=== PATIENT | male | born 1980 | race Caucasian/White ===

== ENCOUNTER → 2020-01-24 | Outpatient (CLI) | payer BC, OTHER ==
[~2020-01-24] MED LIST: ACET-2267 PO; ACET-789 PO; CLIN150C17 PO; GADOBUTROL 15 MMOL/15 ML (GADAVIST) VIAL IV ONE; HOLD METFORMIN - RECEIVED CONTRAST 20 ML VIAL IV SCH; IOHEXOL 350 MG/ML 100 ML (OMNIPAQUE 350) VIAL IV ONE; NS 100 ML (IVPB) BAG IV ONE
[2020-01-24 07:40] LABS: BASOPHILS % (AUTO) 1 % (0-10); EOSINOPHILS # (AUTO) 0.3 10^3/uL (0.0-0.3); EOSINOPHILS % (AUTO) 6 % (0-10); HEMATOCRIT 43 % (40-54); HEMOGLOBIN 14.7 G/DL (13.3-17.7); LYMPHOCYTES # (AUTO) 1.5 X 10^3 (1.0-4.0); LYMPHOCYTES % (AUTO) 35 % (12-44); MEAN CORPUSCULAR HEMOGLOBIN 29 PG (25-34); MEAN CORPUSCULAR HGB CONC 34 G/DL (32-36); MEAN CORPUSCULAR VOLUME 85 FL (80-99); MEAN PLATELET VOLUME 9.1 FL (7.4-10.4); MONOCYTES # (AUTO) 0.6 X 10^3 (0.0-1.0); MONOCYTES % (AUTO) 14 % (0-12); NEUTROPHILS % (AUTO) 45 % (42-75); PLATELET COUNT 199 10^3/uL (130-400); WHITE BLOOD COUNT 4.5 10^3/uL (4.3-11.0)
[2020-01-24 08:02] LABS: ALANINE AMINOTRANSFERASE 56 U/L (0-55); ALBUMIN 4.1 GM/DL (3.2-4.5); ALKALINE PHOSPHATASE 77 U/L (40-136); AMMONIA 23 UMOL/L (11-32); BILIRUBIN,TOTAL 0.5 MG/DL (0.1-1.0); BUN/CREATININE RATIO 16; CALCIUM 8.6 MG/DL (8.5-10.1); CARBON DIOXIDE 25 MMOL/L (21-32); CHLORIDE 105 MMOL/L (98-107); GFR ESTIMATED > 60; GLUCOSE 108 MG/DL (70-105); LIPASE 4 U/L (8-78); POTASSIUM 3.9 MMOL/L (3.6-5.0); SODIUM 140 MMOL/L (135-145); TOTAL PROTEIN 6.7 GM/DL (6.4-8.2)
--- NOTE | 2020-01-24 08:43 | Diagnostic Imaging Report ---
EXAMINATION: CT Chest with and without intravenous contrast. TECHNIQUE: Multiple contiguous axial images were obtained through the chest before and after the uneventful administration of intravenous contrast. All CT scans use one or more of the following dose optimizing techniques: automated exposure control, MA and/or KvP adjustment based on a patient size and exam type, or iterative reconstruction. HISTORY: Choroidal melanoma COMPARISON: None available. FINDINGS: There is no edema or pneumonia. No pleural effusion. No pneumothorax. There is a 4 mm right lower lobe pulmonary nodule (series 6, image 91). There is a 4 mm lingular nodule (series 6, image 8). Heart size is normal. There are no coronary artery calcifications. No pericardial effusion. Aorta is normal in caliber. There is no axillary or supraclavicular lymphadenopathy. There is no mediastinal lymphadenopathy. Limited views of the upper abdomen show mild hepatic steatosis. There are no suspicious osseus lesions. IMPRESSION: 1. There are two nodules in the lungs most measuring 4 mm. While these are indeterminate, they are unlikely to be related to malignancy. Comparison with any more remote priors would be helpful. Dictated by: Dictated on workstation # [id number]
--- NOTE | 2020-01-24 12:59 | Diagnostic Imaging Report ---
PROCEDURE: MR imaging abdomen with and without contrast. TECHNIQUE: Multiplanar, multisequence MR imaging of the abdomen was performed with and without contrast. INDICATION: Melanoma. COMPARISON: There are no prior MRI examinations available for comparison. The CT chest exam performed on 01/24/2020 failed to show any abnormality of the visualized upper abdomen. FINDINGS: On this exam, there is no abnormal enhancement of the solid organs of the upper abdomen to suggest neoplastic disease. The liver does not appear to be enlarged. The gallbladder, spleen, kidneys, adrenals, pancreas, aorta, and inferior vena cava show no sign of an acute abnormality. The stomach is partially filled with fluid and difficult to assess. There is no mass or free fluid collection evident. The lung bases seem clear. There is no abnormal signal arising from the osseous structures. IMPRESSION: 1. There is no acute abnormality of the abdomen and there is no abnormal enhancement to suggest neoplastic disease related to the patient's diagnosis of melanoma. 2. If clinical concern regarding an underlying abnormality persists, then PET/CT would be recommended for further study. Dictated by: Dictated on workstation # [id number]
== END ==
LOC: CARD 07:23
PROVIDERS: ATTEND Internal Medicine Hematology & Oncology
DX: C69.32 Malignant neoplasm of left choroid (principal); R91.8 Other nonspecific abnormal finding of lung field
CPT/HCPCS: 36415; 71270; 74183; 80053; 82140; 83615; 83690; 84443; 85025; 93306

== ENCOUNTER 2020-02-09 19:13 | Emergency (ER) | payer BC, OTHER ==
[~2020-02-09] VITALS: Ht 193 cm; Wt 142.8 kg
[~2020-02-09 19:13] MED LIST changes: -GADOBUTROL 15 MMOL/15 ML (GADAVIST) VIAL IV ONE; -HOLD METFORMIN - RECEIVED CONTRAST 20 ML VIAL IV SCH; -IOHEXOL 350 MG/ML 100 ML (OMNIPAQUE 350) VIAL IV ONE; -NS 100 ML (IVPB) BAG IV ONE
[2020-02-09] MEDS ORDERED: fentaNYL INJECTION 100 MCG/2 ML AMP IVP STA (19:37)
[2020-02-09 19:43] LABS: BASOPHILS % (AUTO) 1 % (0-10); EOSINOPHILS # (AUTO) 0.3 10^3/uL (0.0-0.3); EOSINOPHILS % (AUTO) 5 % (0-10); HEMATOCRIT 44 % (40-54); HEMOGLOBIN 14.9 G/DL (13.3-17.7); LYMPHOCYTES # (AUTO) 1.8 X 10^3 (1.0-4.0); LYMPHOCYTES % (AUTO) 30 % (12-44); MEAN CORPUSCULAR HEMOGLOBIN 29 PG (25-34); MEAN CORPUSCULAR HGB CONC 34 G/DL (32-36); MEAN CORPUSCULAR VOLUME 86 FL (80-99); MEAN PLATELET VOLUME 9.3 FL (7.4-10.4); MONOCYTES # (AUTO) 0.7 X 10^3 (0.0-1.0); MONOCYTES % (AUTO) 12 % (0-12); NEUTROPHILS # (AUTO) 3.3 X 10^3 (1.8-7.8); NEUTROPHILS % (AUTO) 53 % (42-75); PLATELET COUNT 215 10^3/uL (130-400); WHITE BLOOD COUNT 6.2 10^3/uL (4.3-11.0)
[2020-02-09] MEDS ORDERED: ONDANSETRON 4 MG/2 ML (SDV) Z0FRAN IVP ONE (19:45)
[2020-02-09 19:53] LABS: PROTHROMBIN TIME PATIENT 13.1 SEC (12.2-14.7)
[2020-02-09 19:54] LABS: ALBUMIN 4.5 GM/DL (3.2-4.5); CHLORIDE 109 MMOL/L (98-107); POTASSIUM 3.7 MMOL/L (3.6-5.0); SODIUM 143 MMOL/L (135-145)
[2020-02-09 19:55] LABS: CALCIUM 8.9 MG/DL (8.5-10.1)
[2020-02-09 19:56] LABS: GLUCOSE 102 MG/DL (70-105); TOTAL PROTEIN 7.2 GM/DL (6.4-8.2)
[2020-02-09 19:57] LABS: CARBON DIOXIDE 22 MMOL/L (21-32)
[2020-02-09 19:58] LABS: BILIRUBIN,TOTAL 0.5 MG/DL (0.1-1.0)
[2020-02-09 20:00] LABS: ALKALINE PHOSPHATASE 78 U/L (40-136); GFR ESTIMATED > 60
[2020-02-09 20:01] LABS: BUN/CREATININE RATIO 21
[2020-02-09 20:03] LABS: ALANINE AMINOTRANSFERASE 58 U/L (0-55); MAGNESIUM 2.2 MG/DL (1.6-2.4)
--- NOTE | 2020-02-09 20:14 | Diagnostic Imaging Report ---
PROCEDURE: CT head and maxillofacial without contrast. TECHNIQUE: Multiple contiguous axial images were obtained through the head and facial bones without the use of intravenous contrast. Auto Exposure Controls were utilized during the CT exam to meet ALARA standards for radiation dose reduction. INDICATION: Headache. 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 Left hip pain. COMPARISON: None. FINDINGS: CT head: The ventricles and cortical sulci are age-appropriate. There is no midline shift or mass effect. No acute intracranial hemorrhage is seen. There is no CT evidence of acute territorial ischemia. The calvarium appears intact. CT face: There is a hyperdensity along the medial aspect of the left globe which measures 1.2 x 0.5 x 1.4 cm in size. No extension outside of the globe is seen. No post septal edema or mass is identified. No enlargement of the ocular nerve is seen. There is mild mucosal thickening with mucous retention cysts or polyps seen in the maxillary sinuses, bilaterally. There is mild mucosal thickening in the ethmoid sinuses. No acute fracture is seen in the face. IMPRESSION: 1. Hyperdensity in the medial aspect of the left globe, consistent with the patient's known ocular melanoma. No extension outside of the globe is seen. 2. Mild paranasal sinus disease without fluid level seen. 3. No acute intracranial hemorrhage or mass effect. Dictated by: Dictated on workstation # [id number]
--- NOTE | 2020-02-09 20:18 | ED Headache ---
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, pain is described as being on the left side of his head "its not a headache its a pain inthe side of my head." Nursing Sepsis Screen: No Definite Risk Source: patient History of Present Illness Date Seen by Provider: February 09, 2020 Time Seen by Provider: 19:24 Initial Comments PT ARRIVES VIA POV FROM HOME PT STATES "I GOT SOME PAIN IN MY HEAD--IT'S NOT REALLY A HEADACHE, IT'S JUST A PAIN IN THE SIDE OF MY HEAD" STATES IT BEGAN AROUND 1530 TODAY, WHILE HE WAS AT WORK ( 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 PT STATES HE WAS SUPPOSED TO HAVE STARTED CHEMO, BUT IT HAS BEEN POSTPONED UNTIL MARCH DUE TO COVID-19 PANDEMIC. 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 NO RASH IN AREA NO NAUSEA/VOMITING--HAS BEEN EATING AND DRINKING USUAL NO DIZZINESS NO PARESTHESIAS OR MOTOR DEFICITS NO SYNCOPE NO FEVER/SWEATS/CHILLS NO COUGH/URI/SINUS SYMPTOMS/SORE THROAT AND NO RECENT ILLNESS OF ANY KIND NO KNOWN SICK CONTACTS OR EXPOSURE TO COVID-19. NO RECENT TRAVEL, ETC, EXCEPT TO DR. MATA AT 1940--ONCOLOGIST AT , DR. BALL, HAS CALLED HERE, AT PT'S 'S REQUEST, AND HE CONFIRMS PT'S DIAGNOSIS OF UVEAL MELANOMA, AND STATES THAT HE HAS NOT HAD ANY RECENT SCANS SINCE HE RECEIVED RADIATION IN DECEMBER. THEY WILL ARRANGE FOR OUTPATIENT MRI --PT IS TO CALL THE CLINIC IN THE MORNING TO ARRANGE THIS. Allergies and Home Medications Allergies Coded Allergies: Penicillins (Verified Allergy, Unknown, 03/10/16) aspirin (Verified Allergy, Unknown, 03/10/16) Home Medications Acetaminophen 500 Mg Tablet, 1,000 MG PO Q4H PRN for PAIN, (Reported) TAKES 2 (500MG) TABLETS Acetaminophen with Codeine 1 Each Tablet, 1 EACH PO Q4H PRN for PAIN Prescribed by: FROYLAN LUO on 03/10/161857 Clindamycin HCl 150 Mg Capsule, 450 MG PO TID Prescribed by: FROYLAN LUO on 03/10/161857 Patient Home Medication List Home Medication List Reviewed: Yes Review of Systems Review of Systems Constitutional: no symptoms reported; No chills, No diaphoresis, No dizziness, No fever, No malaise, No weakness Eyes: See HPI Ears, Nose, Mouth, Throat: no symptoms reported Respiratory: no symptoms reported (NO CHANGES IN HEARING) Cardiovascular: no symptoms reported Gastrointestinal: no symptoms reported; No loss of appetite, No nausea, No vomiting Genitourinary: no symptoms reported Musculoskeletal: no symptoms reported; No back pain, No neck pain Skin: no symptoms reported; No pruritus, No rash Psychiatric/Neurological: See HPI; Denies Numbness, Denies Paresthesia, Denies Seizure, Denies Tingling, Denies Tremors, Denies Weakness Past Zdbawwb-Yzrojc-Qfevtt Hx Past Med/Social Hx: Reviewed and Corrections made Patient Social History Alcohol Use: Rarely Uses Recreational Drug Use: No Smoking Status: Former Smoker (1 PPD, QUIT 20 YEARS AGO. ) Type Used: Cigarettes Recent Foreign Travel: No Contact w/Someone Who Travel: No Recent Infectious Disease Expo: No Recent Hopitalizations: No Physical Abuse: No Sexual Abuse: No Mistreated: No Fear: No Seasonal Allergies Seasonal Allergies: No Past Medical History Surgeries: Yes (CARDIAC CATH YEARS AGO-NO INTERVENTION;LEFT EYE LASER SURGERY + AVASTIN INJ) Cardiac, Eye Surgery Respiratory: No Cardiac: Yes (CARDIAC CATH-NO INTERVENTION; QUIT TAKING COREG FOR HTN > 10 YEARS AGO. ) Heart Attack, Hypertension Neurological: No Reproductive Disorders: No Genitourinary: No Gastrointestinal: No Musculoskeletal: No Endocrine: No HEENT: Yes (UVEAL MELANOMA OF LEFT EYE WITH LOSS OF PERIPHERAL VISION ON LEFT) Cancer: Yes (UVEAL MELANOMA OF L EYE-DX 12/2019--S/P RADIATION,AVASTIN INJECTIONS,LASER) Did You Recieve Any Treatments: Yes (LASER SURGERY ON L EYE, AVASTIN INJECTIONS, RADIATION TO L EYE 12/2019) What Type of Treatment Did You: Radiation Psychosocial: No Integumentary: No Blood Disorders: No Family Medical History No Pertinent Family Hx Physical Exam Vital Signs Vital Signs - First Documented 02/09/20 02/09/20 19:24 21:39 Temp 36.4 Pulse 75 Resp 18 B/P (MAP) 138/105 (116) Pulse Ox 98 Capillary Refill : Less Than 3 Seconds Height, Weight, BMI Height: 6'3.00" Weight: 278lbs. 0.0oz. 126.227712ly; 38.00 BMI Method:Stated General Appearance: WD/WN, no apparent distress, other (FLAT AFFECT. ) HEENT: PERRL/EOMI, normal ENT inspection, TMs normal, pharynx normal, other (LEFT EYE WITH SOME LID LAG AND MODERATE PROPTOSIS. LOSS OF PERIPHERAL VISION. CONJUNCTIVA MILDLY INJECTED. NO DRAINAGE. ) Neck: non-tender, full range of motion, supple, normal inspection; No carotid bruit Cardiovascular: normal peripheral pulses, regular rate, rhythm, no edema, no JVD, no murmur Respiratory: normal breath sounds, no respiratory distress, no accessory muscle use Gastrointestinal: normal bowel sounds, non tender, soft Extremities: normal range of motion, non-tender, normal inspection, no pedal edema, no calf tenderness, normal capillary refill Psychiatric: alert, oriented x 3 Crainal Nerves: normal hearing, normal speech, PERRL, other ( ABOVE) Coordination/Gait: normal finger to nose, normal gait Motor/Sensory: no motor deficit, no sensory deficit, no pronator drift Skin: normal color, warm/dry; No rash Lymphatic: no adenopathy Progress/Results/Core Measures Results/Orders Lab Results Laboratory Tests Test 02/09/20 19:31 02/09/20 21:02 Range/Units White Blood Count 6.2 4.3-11.0 10^3/uL Red Blood Count 5.17 4.35-5.85 10^6/uL Hemoglobin 14.9 13.3-17.7 G/DL Hematocrit 44 40-54 % Mean Corpuscular Volume 86 80-99 FL Mean Corpuscular Hemoglobin 29 25-34 PG Mean Corpuscular Hemoglobin Concent 34 32-36 G/DL Red Cell Distribution Width 13.0 10.0-14.5 % Platelet Count 215 130-400 10^3/uL Mean Platelet Volume 9.3 7.4-10.4 FL Neutrophils (%) (Auto) 53 42-75 % Lymphocytes (%) (Auto) 30 12-44 % Monocytes (%) (Auto) 12 0-12 % Eosinophils (%) (Auto) 5 0-10 % Basophils (%) (Auto) 1 0-10 % Neutrophils # (Auto) 3.3 1.8-7.8 X 10^3 Lymphocytes # (Auto) 1.8 1.0-4.0 X 10^3 Monocytes # (Auto) 0.7 0.0-1.0 X 10^3 Eosinophils # (Auto) 0.3 0.0-0.3 10^3/uL Basophils # (Auto) 0.0 0.0-0.1 10^3/uL Erythrocyte Sedimentation Rate 5 0-15 MM/HR Prothrombin Time 13.1 12.2-14.7 SEC INR Comment 1.0 0.8-1.4 Activated Partial Thromboplast Time 32 24-35 SEC Sodium Level 143 135-145 MMOL/L Potassium Level 3.7 3.6-5.0 MMOL/L Chloride Level 109 H 98-107 MMOL/L Carbon Dioxide Level 22 21-32 MMOL/L Anion Gap 12 5-14 MMOL/L Blood Urea Nitrogen 21 H 7-18 MG/DL Creatinine 1.00 0.60-1.30 MG/DL Estimat Glomerular Filtration Rate > 60 BUN/Creatinine Ratio 21 Glucose Level 102 70-105 MG/DL Calcium Level 8.9 8.5-10.1 MG/DL Corrected Calcium 8.5 8.5-10.1 MG/DL Magnesium Level 2.2 1.6-2.4 MG/DL Total Bilirubin 0.5 0.1-1.0 MG/DL Aspartate Amino Transf (AST/SGOT) 36 H 5-34 U/L Alanine Aminotransferase (ALT/SGPT) 58 H 0-55 U/L Alkaline Phosphatase 78 40-136 U/L C-Reactive Protein High Sensitivity 0.28 0.00-0.50 MG/DL Total Protein 7.2 6.4-8.2 GM/DL Albumin 4.5 3.2-4.5 GM/DL Urine Color YELLOW Urine Clarity CLEAR Urine pH 7.0 5-9 Urine Specific [place] 1.020 1.016-1.022 Urine Protein NEGATIVE NEGATIVE Urine Glucose (UA) NEGATIVE NEGATIVE Urine Ketones TRACE H NEGATIVE Urine Nitrite NEGATIVE NEGATIVE Urine Bilirubin NEGATIVE NEGATIVE Urine Urobilinogen 0.2 < = 1.0 MG/DL Urine Leukocyte Esterase NEGATIVE NEGATIVE Urine RBC (Auto) NEGATIVE NEGATIVE Urine RBC 0-2 /HPF Urine WBC 2-5 /HPF Urine Squamous Epithelial Cells NONE /HPF Urine Crystals NONE /LPF Urine Bacteria NEGATIVE /HPF Urine Casts NONE /LPF Urine Mucus NEGATIVE /LPF Urine Culture Indicated NO Urine Opiates Screen NEGATIVE NEGATIVE Urine Oxycodone Screen NEGATIVE NEGATIVE Urine Methadone Screen NEGATIVE NEGATIVE Urine Propoxyphene Screen NEGATIVE NEGATIVE Urine Barbiturates Screen NEGATIVE NEGATIVE Ur Tricyclic Antidepressants Screen NEGATIVE NEGATIVE Urine Phencyclidine Screen NEGATIVE NEGATIVE Urine Amphetamines Screen NEGATIVE NEGATIVE Urine Methamphetamines Screen NEGATIVE NEGATIVE Urine Benzodiazepines Screen NEGATIVE NEGATIVE Urine Cocaine Screen NEGATIVE NEGATIVE Urine Cannabinoids Screen NEGATIVE NEGATIVE My Orders Orders - JUAN CARLOS LAWSON DO Ed Iv/Invasive Line Start (02/09/20 19:25) Ekg Tracing (02/09/20 19:25) Monitor-Rhythm Ecg Trace Only (02/09/20 19:25) Cbc With Automated Diff (02/09/20 19:25) Comprehensive Metabolic Panel (02/09/20 19:25) Drug Screen Stat (Urine) (02/09/20 19:25) Magnesium (02/09/20 19:25) Protime With Inr (02/09/20 19:25) Partial Thromboplastin Time (02/09/20 19:25) Ua Culture If Indicated (02/09/20 19:25) Ct Head/Maxillofacial Wo (02/09/20 19:37) Erythrocyte Sedimentation Rate (02/09/20 19:37) Fentanyl Injection (Sublimaze Injection (02/09/20 19:37) Ondansetron Injection (Zofran Injectio (02/09/20 19:45) Hs C Reactive Protein (02/09/20 19:31) Ct Angio Head/Neck (02/09/20 20:19) Iohexol Injection (Omnipaque 350 Mg/Ml 1 (02/09/20 20:30) Received Contrast (Hold Metformin- Contr (02/09/20 20:30) Ns (Ivpb) (Sodium Chloride 0.9% Ivpb Bag (02/09/20 20:30) Rx-Hydrocodone/Apap 5-325 Mg (Rx-Vicodin (02/09/20 21:30) Medications Given in ED Vital Signs/I&O 02/09/20 02/09/20 19:24 21:39 Temp 36.4 37.0 Pulse 75 73 Resp 18 16 B/P (MAP) 138/105 (116) 131/81 (116) Pulse Ox 98 Blood Pressure Mean: 116 Progress Progress Note : Progress Note PAIN COMPLETELY RELIEVED WITH FENTANYL UNEVENTFUL ER STAY OFFERED RX FOR PAIN MEDICATIONS, BUT PT DECLINED--SENT HOME WITH TAKE HOME PACK OF HYDROCODONE FOR TONIGHT, AND ANY FURTHER PRESCRIPTIONS CAN BE DONE THROUGH HIS ONCOLOGIST AT --PT IS VERY AGREEABLE TO THIS PLAN. Initial ECG Impression Date: February 10, 2020 Initial ECG Impression Time: 19:29 Initial ECG Rate: 66 Initial ECG Rhythm: Normal Sinus Initial ECG Comparisson: No Previous ECG Available Diagnostic Imaging Comments CT HEAD/MAXILLOFACIALS---PER RADIOLOGIST REPORT AT 2018 FINDINGS: CT head: The ventricles and cortical sulci are age-appropriate. There is no midline shift or mass effect. No acute intracranial hemorrhage is seen. There is no CT evidence of acute territorial ischemia. The calvarium appears intact. CT face: There is a hyperdensity along the medial aspect of the left globe which measures 1.2 x 0.5 x 1.4 cm in size. No extension outside of the globe is seen. No post septal edema or mass is identified. No enlargement of the ocular nerve is seen. There is mild mucosal thickening with mucous retention cysts or polyps seen in the maxillary sinuses, bilaterally. There is mild mucosal thickening in the ethmoid sinuses. No acute fracture is seen in the face. IMPRESSION: 1. Hyperdensity in the medial aspect of the left globe, consistent with the patient's known ocular melanoma. No extension outside of the globe is seen. 2. Mild paranasal sinus disease without fluid level seen. 3. No acute intracranial hemorrhage or mass effect. CT ANGIOGRAM HEAD/NECK--PER RADIOLOGIST REPORT AT 2109 FINDINGS: No enhancing lesions are seen in the brain parenchyma. No acute hemorrhage is seen since the prior study. There is no CT evidence of acute territorial ischemia. The previously described mass in the left globe is again seen and demonstrates enhancement. Again, no definite extension outside of the globe is seen. Sinuses appear unchanged. The calvarium is intact. The bilateral common carotid arteries appear normal. The internal carotid arteries are tortuous, bilaterally, with no focal stenosis, occlusion or dissection. The vertebral arteries appear patent. No acute abnormality is seen. The anterior communicating artery is seen. The anterior cervical arteries appear patent. The middle cerebral arteries appear normal. The posterior communicating arteries are not well seen. The posterior cerebral arteries appear normal. The basilar artery appears normal. The superior cerebellar arteries are unremarkable. No significant aneurysm is seen. No acute abnormality is seen in the cervical spine. IMPRESSION: 1. No acute abnormality is seen in the arteries of the head and neck. 2. Redemonstrated enhancing mass in the left globe consistent with the patient's history of ocular melanoma. 3. No enhancing mass is seen in the brain parenchyma. Reviewed: Reviewed by Me Departure Communication (Admissions) Family Conversation 2039--SPOKE WITH PT'S , UPDATE GIVEN--WAITING FOR TEST RESULTS AT THIS TIME. DID DISCUSS THE CONVERSATION I HAD WITH DR. 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 Referrals: SHANELLE GILLIS MD (PCP/Family) Primary Care Physician Patient Instructions: Headache, Adult (DC), Melanoma Skin Cancer (DC) Add. Discharge Instructions: HOME, REST FOLLOW UP WITH YOUR ONCOLOGIST AT FOR OUTPATIENT MRI--CALL IN AM TO SCHEDULE THE TEST FOLLOW UP WITH ONCOLOGY AT INSTRUCTED. All discharge instructions reviewed with patient and/or family. Voiced understanding. JUAN CARLOS LAWSON DO February 09, 2020 20:18
[2020-02-09] MEDS ORDERED: NS 100 ML (IVPB) BAG IV ONE (20:30)
[2020-02-09] MEDS ORDERED: HOLD METFORMIN - RECEIVED CONTRAST 20 ML VIAL IV SCH (20:30)
[2020-02-09] MEDS ORDERED: IOHEXOL 350 MG/ML 100 ML (OMNIPAQUE 350) VIAL IV ONE (20:30)
--- NOTE | 2020-02-09 21:02 | Diagnostic Imaging Report ---
PROCEDURE: CT angiography of the head and CT angiography of the neck with and without contrast. TECHNIQUE: Contiguous noncontrast images were obtained from the skull base through the vertex. After intravenous contrast administration, helical CT angiography of the neck was performed. Source data was reformatted into 3D MIP projections. Delayed post contrast acquisition was also obtained. Auto Exposure Controls were utilized during the CT exam to meet ALARA standards for radiation dose reduction. INDICATION: Headache. History of ocular melanoma. COMPARISON: CT from the same day. FINDINGS: No enhancing lesions are seen in the brain parenchyma. No acute hemorrhage is seen since the prior study. There is no CT evidence of acute territorial ischemia. The previously described mass in the left globe is again seen and demonstrates enhancement. Again, no definite extension outside of the globe is seen. Sinuses appear unchanged. The calvarium is intact. The bilateral common carotid arteries appear normal. The internal carotid arteries are tortuous, bilaterally, with no focal stenosis, occlusion or dissection. The vertebral arteries appear patent. No acute abnormality is seen. The anterior communicating artery is seen. The anterior cervical arteries appear patent. The middle cerebral arteries appear normal. The posterior communicating arteries are not well seen. The posterior cerebral arteries appear normal. The basilar artery appears normal. The superior cerebellar arteries are unremarkable. No significant aneurysm is seen. No acute abnormality is seen in the cervical spine. IMPRESSION: 1. No acute abnormality is seen in the arteries of the head and neck. 2. Redemonstrated enhancing mass in the left globe consistent with the patient's history of ocular melanoma. 3. No enhancing mass is seen in the brain parenchyma. Dictated by: Dictated on workstation # [id number]
[2020-02-09 21:08] LABS: BILIRUBIN,URINE NEGATIVE (NEGATIVE); CLARITY,URINE CLEAR; COLOR,URINE YELLOW; GLUCOSE, URINE (UA) NEGATIVE (NEGATIVE); KETONES,URINE TRACE (NEGATIVE); LEUKOCYTE ESTERASE ,URINE NEGATIVE (NEGATIVE); NITRITE,URINE NEGATIVE (NEGATIVE); PROTEIN,URINE NEGATIVE (NEGATIVE)
[2020-02-09 21:24] LABS: BACTERIA,URINE NEGATIVE /HPF; RBC,URINE 0-2 /HPF
[2020-02-09 21:27] LABS: AMPHETAMINE SCREEN, URINE NEGATIVE (NEGATIVE); BARBITURATE SCREEN URINE NEGATIVE (NEGATIVE); BENZODIAZEPINES SCREEN URINE NEGATIVE (NEGATIVE); CANNABINOID SCREEN, URINE NEGATIVE (NEGATIVE); COCAINE SCREEN URINE NEGATIVE (NEGATIVE); METHADONE STAT NEGATIVE (NEGATIVE); METHAMPHETAMINE SCREEN URINE S NEGATIVE (NEGATIVE); OPIATE SCREEN URINE NEGATIVE (NEGATIVE); OXYCODONE STAT NEGATIVE (NEGATIVE); PROPOXYPHENE STAT NEGATIVE (NEGATIVE); TRICYCLIC ANTIDEPRESSANTS SCRE NEGATIVE (NEGATIVE)
[2020-02-09] MEDS ORDERED: RX-HYDROCODONE/APAP 5/325 MG #4 TAB PK PO PRN (21:30)
[2020-02-09 21:39] VITALS: BP 131/81
== END 2020-02-09 21:38 | disposition home or self-care (01) ==
LOC: EDUNIT# 19:13 → ER 19:15
DX: R51 Headache (principal); C69.42 Malignant neoplasm of left ciliary body; I10 Essential (primary) hypertension; I25.2 Old myocardial infarction; Z92.3 Personal history of irradiation; Z87.891 Personal history of nicotine dependence
CPT/HCPCS: 36415; 70450; 70486; 70496; 70498; 80053; 80306; 81000; 83735; 85025; 85610; 85652; 85730; 86141; 93041

== ENCOUNTER → 2020-05-05 | Outpatient (CLI) | payer BC, OTHER | LOC: LABNPT 09:45 | PROVIDERS: ATTEND Family Medicine | DX: C69.31 Malignant neoplasm of right choroid (principal); Z20.828 Contact with and (suspected) exposure to other viral communicable diseases | CPT/HCPCS: 87635 ==

== ENCOUNTER → 2020-07-03 | Outpatient (CLI) | payer BC, OTHER ==
[~2020-07-03] MED LIST changes: +GADOXETATE 2.5 MMOL/10 ML (EOVIST) IV ONE
[2020-07-03 08:41] LABS: BASOPHILS % (AUTO) 1 % (0-10); EOSINOPHILS # (AUTO) 0.2 10^3/uL (0.0-0.3); EOSINOPHILS % (AUTO) 4 % (0-10); HEMATOCRIT 47 % (40-54); HEMOGLOBIN 16.3 g/dL (13.3-17.7); LYMPHOCYTES # (AUTO) 1.7 10^3/uL (1.0-4.0); LYMPHOCYTES % (AUTO) 43 % (12-44); MEAN CORPUSCULAR HEMOGLOBIN 30 pg (25-34); MEAN CORPUSCULAR HGB CONC 35 g/dL (32-36); MEAN CORPUSCULAR VOLUME 88 fL (80-99); MEAN PLATELET VOLUME 8.6 fL (9.0-12.2); MONOCYTES # (AUTO) 0.4 10^3/uL (0.0-1.0); MONOCYTES % (AUTO) 10 % (0-12); NEUTROPHILS # (AUTO) 1.7 10^3/uL (1.8-7.8); NEUTROPHILS % (AUTO) 42 % (42-75); PLATELET COUNT 158 10^3/uL (130-400)
[2020-07-03 09:08] LABS: ALANINE AMINOTRANSFERASE 80 U/L (0-55); ALBUMIN 4.4 GM/DL (3.2-4.5); ALKALINE PHOSPHATASE 76 U/L (40-136); BILIRUBIN,TOTAL 0.6 MG/DL (0.1-1.0); BUN/CREATININE RATIO 15; CALCIUM 9.1 MG/DL (8.5-10.1); CARBON DIOXIDE 23 MMOL/L (21-32); CHLORIDE 104 MMOL/L (98-107); CREATININE SERUM 0.92 MG/DL (0.60-1.30); GFR ESTIMATED > 60; GLUCOSE 100 MG/DL (70-105); POTASSIUM 3.9 MMOL/L (3.6-5.0); SODIUM 137 MMOL/L (135-145); TOTAL PROTEIN 7.2 GM/DL (6.4-8.2)
--- NOTE | 2020-07-03 11:31 | Diagnostic Imaging Report ---
EXAMINATION: MRI of the abdomen with and without contrast. TECHNIQUE: Multiplanar, multisequence MR images of the abdomen were obtained with and without intravenous contrast. HISTORY: Choroidal melanoma. COMPARISON: 01/24/2020. FINDINGS: Liver is moderately steatotic. No suspicious liver lesions are seen. No surface nodularity. Gallbladder is normal. There is no biliary ductal dilation. Pancreas is normal. Spleen is normal. Adrenal glands are normal. Kidneys are normal without hydronephrosis. Visualized bowel is normal. No lymphadenopathy is seen. Lung bases are clear. No osseous lesions are seen. IMPRESSION: 1. Liver is steatotic but no metastatic disease is seen. Dictated by: Dictated on workstation # [id number]
== END ==
LOC: CARD 09:00
DX: C69.32 Malignant neoplasm of left choroid (principal); K76.0 Fatty (change of) liver, not elsewhere classified
CPT/HCPCS: 36415; 74183; 80053; 83615; 84443; 85025; 93306

== ENCOUNTER 2020-07-18 05:37 | Outpatient (RCR) | payer BC, OTHER ==
[~2020-07-18] VITALS: Ht 193 cm; Wt 145.4 kg
[~2020-07-18 05:37] MED LIST changes: +FAMO-119 PO; -GADOXETATE 2.5 MMOL/10 ML (EOVIST) IV ONE; +LISI-552 PO; +ONDN4T PO; +SUNI25CA PO
[2020-07-19] MEDS ORDERED: PANT40TA2 PO (10:40)
[2020-07-19] MEDS ORDERED: SUCR1TAB36 PO (12:53)
== END 2020-07-18 10:02 | disposition home or self-care (01) ==
LOC: PREOP 05:37
PROVIDERS: ATTEND Surgery
DX: Z01.818 Encounter for other preprocedural examination (principal); Z01.812 Encounter for preprocedural laboratory examination; K92.0 Hematemesis; Z20.828 Contact with and (suspected) exposure to other viral communicable diseases
CPT/HCPCS: 87635

== ENCOUNTER 2020-07-19 10:29 | Day surgery (SDC) | payer BC, OTHER ==
[~2020-07-19] VITALS: Ht 193 cm; Wt 39.0 kg
[2020-07-19] VITALS (16 sets, daily range): BP systolic 126–152; BP diastolic 77–92
--- NOTE | 2020-07-19 10:39 | Progress Note-Pre Operative ---
Pre-Operative Progress Note H&P Reviewed The H&P was reviewed, patient examined and no changes noted. Date Seen by Provider: Jul 19, 2020 Time Seen by Provider: 10: Date H&P Reviewed: Jul 19, 2020 Time H&P Reviewed: : Pre-Operative Diagnosis: hematamesis, hx ocular melanoma MENDY DE LEON MD Jul 19, 2020 10:39
--- NOTE | 2020-07-19 10:39 | Conscious Sedation/ASA ---
Conscious Sedation Pre-Proced Time 10:30 ASA Score 2 For ASA 3 and 4: Consider anesthesia and medical clearance. Also, for patients with a history of failed moderate sedation consider anesthesia. Airway Lungs Heart ASA score ASA 1: a normal healthy patient ASA 2: a patient with a mild systemic disease (mid diabetes, controlled hypertension, obesity ASA 3: a patient with a severe systemic disease that limits activity (angina, COPD, prior Myocardial infarction) ASA 4: a patient with an incapacitating disease that is a constant threat to life (CHF, renal failure) ASA 5: a moribund patient not expected to survive 24 hrs. (ruptured aneurysm) ASA 6: a declared brain- patient whose organs are being harvested. For emergent operations, add the letter E after the classification Mallampati Classification Grade 2 Sedation Plan Analgesia, Amnesia, Plan communicated to team members, Discussed options with patient/fam, Discussed risks with patient/fam The patient is an appropriate candidate to undergo the planned procedure, sedation, and anesthesia. The patient immediately re-assessed prior to indication. MENDY DE LEON MD Jul 19, 2020 10:39
[2020-07-19] MEDS ORDERED: PANT40TA2 PO (10:40)
[2020-07-19] MEDS ORDERED: HYDROcodone/APAP 5 MG/325 MG (LORTAB) TAB PO PRN (10:45)
[2020-07-19] MEDS ORDERED: ACETAMINOPHEN 325 MG TABLET PO PRN (10:45)
[2020-07-19] MEDS ORDERED: ONDANSETRON 4 MG/2 ML (SDV) Z0FRAN IVP PRN (10:45)
[2020-07-19] MEDS ORDERED: morphine INJ 10 MG/ML 1ML (SYR OR VIAL) IVP PRN ×2 (10:45)
[2020-07-19] MEDS ORDERED: NS IV 500 ML 500 ML IV PRN (10:46)
[2020-07-19] MEDS ORDERED: NS IV 500 ML 500 ML ONE (10:50)
[2020-07-19] MEDS ORDERED: fentaNYL INJECTION 100 MCG/2 ML AMP IVP ONE (11:00)
[2020-07-19] MEDS ORDERED: MIDAZOLAM 5 MG/5 ML (VERSED) VIAL IV ONE (11:00)
[2020-07-19] MEDS ORDERED: HURRICAINE EXT TUBE (BENZOCAINE) XX PRN (11:00)
[2020-07-19] MEDS ORDERED: LIDOCAINE JELLY 2% 6 ML SYRINGE MM PRN (11:00)
[2020-07-19] MEDS ORDERED: LIDOCAINE JELLY 2% 6 ML SYRINGE ONE (11:43)
[2020-07-19] MEDS ORDERED: MIDAZOLAM 5 MG/5 ML (VERSED) VIAL ONE ×2 (11:44→12:00)
[2020-07-19] MEDS ORDERED: fentaNYL INJECTION 100 MCG/2 ML AMP ONE ×2 (11:44→12:00)
[2020-07-19] MEDS ORDERED: HURRICAINE EXT TUBE (BENZOCAINE) ONE (11:46)
--- NOTE | 2020-07-19 12:46 | Progress Note-Post Operative ---
Post-Operative Progess Note Surgeon (s)/Manager Medicare (s) Surgeon MENDY DE LEON MD Manager Medicare: none Pre-Operative Diagnosis hematamesis, hx ocular melanoma Post-Operative Diagnosis distal esophagitis, reflux esophagitis(stage 3), moderate HH(3cm), mild-moderate gastritis. Procedure & Operative Findings Date of Procedure 07/19/20 Procedure Performed/Findings EGD with bx. Anesthesia Type cs Estimated Blood Loss Estimated blood loss (mL): minimal Specimens/Packing Specimens Removed ge jxn, antrum MENDY DE LEON MD Jul 19, 2020 12:46
[2020-07-19] MEDS ORDERED: SUCR1TAB36 PO (12:53)
--- NOTE | 2020-07-19 20:25 | OPERATIVE REPORT ---
DATE OF SERVICE: 07/19/2020 ATTENDING PRIMARY CARE PHYSICIAN: Dr. Kadeem Wright. PREOPERATIVE DIAGNOSES: Nausea, vomiting, regurgitation, hematemesis with history of left ocular melanoma. POSTOPERATIVE DIAGNOSES: Distal esophagitis, reflux esophagitis stage III, moderate size hiatal hernia 3 cm in size, mild to moderate gastritis. No distal obstructions. PROCEDURE: EGD with biopsy. SURGEON: Mendy De Leon MD. ANESTHESIA: Conscious sedation. ESTIMATED BLOOD LOSS: Minimal. FINDINGS: Distal esophagitis, reflux esophagitis stage III, moderate size hiatal hernia 3 cm in size, mild to moderate gastritis. No distal obstructions. DISPOSITION: The patient tolerated the procedure well. INDICATIONS: The patient is a 39-year-old male referred over to us for an EGD. He has had issues with nausea, vomiting and regurgitation including several episodes of hematemesis. He reports that he has had issues with reflux for some amount of time and at times would also have some dysphagia. During 09/2019, he was diagnosed with left ocular melanoma and was treated with oral antibiotic, Sutent as well as radiation plaque therapy in 10/2019. He is currently on Pepcid 20 mg daily. DESCRIPTION OF PROCEDURE: The patient was brought to the endoscopy suite, laid in left lateral decubitus position. After adequate IV pain and sedative medications and conscious sedation anesthesia, the mouthpiece was applied. The endoscope was then placed in the mouth, visualizing the pharynx and hypopharyngeal region. Vocal cords, epiglottis and vallecula identified and appeared to be normal. The endoscope was then gently intubated. Esophageal opening and esophagus insufflated. The endoscope was then advanced through the first, second and third portion of esophagus at the distal third of the esophagus, a significant esophagitis was identified. 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 Biopsies were taken with forceps with visualization of good hemostasis. The endoscope was then advanced into the stomach and endoscope retroflexed, visualizing a moderate sized hiatal hernia approximately 3 cm in size. There was a mild to moderate gastritis. No formal ulcerations, polyps, or any neoplasms identified. A biopsy was taken of the antrum to rule out H. pylori with visualization of good hemostasis. The endoscope was then advanced through the pylorus and the first and second portion of the duodenum, which appeared normal with no distal obstructions. Endoscope was then slowly withdrawn while taking a second look and suctioning of residual air with no additional findings. The patient tolerated the procedure well. We will await the biopsy results; however, start him on the necessary lifestyle and diet accommodation including avoidance of caffeinated beverages, spicy, greasy and acidic foods as well as take in small and more frequent meals, avoiding to eating at night as well as head elevation while lying supine. We will also start him on Protonix 40 mg daily as well as Carafate 1 gram q.i.d. for the next 2 weeks, then on a p.r.n. basis. If he continues to be symptomatic with regurgitation, dysphagia, reflux despite maximal medical therapy, he may be a candidate for hiatal hernia repair in which we would proceed with further testing including an esophageal manometry study and if there is no contraindication, then proceed with a hiatal hernia repair as well as an antireflux procedure. Job ID: [id number] DocumentID: [id number] Dictated Date: 07/19/2020 12:40:29 Integration Engineer Date: 07/19/2020 20:24:36 Dictated By: MENDY DE LEON MD
== END 2020-07-19 12:22 | disposition home or self-care (01) ==
LOC: ENDO 10:29
PROVIDERS: ATTEND Surgery
DX: K21.00 Gastro-esophageal reflux disease with esophagitis, without bleeding (principal); K44.9 Diaphragmatic hernia without obstruction or gangrene; K29.70 Gastritis, unspecified, without bleeding; K22.70 Barrett's esophagus without dysplasia; I10 Essential (primary) hypertension; I25.2 Old myocardial infarction; Z79.899 Other long term (current) drug therapy; Z92.3 Personal history of irradiation; Z87.891 Personal history of nicotine dependence; Z88.0 Allergy status to penicillin; Z88.6 Allergy status to analgesic agent; Z87.19 Personal history of other diseases of the digestive system; Z85.89 Personal history of malignant neoplasm of other organs and systems
CPT/HCPCS: 88305

== ENCOUNTER 2020-09-01 22:44 | Emergency (ER) | payer BC, OTHER ==
[~2020-09-01] VITALS: Ht 193 cm; Wt 140.6 kg
[~2020-09-01 22:44] MED LIST changes: +PANT40TA2 PO; +SUCR1TAB36 PO
--- NOTE | 2020-09-01 23:28 | ED EENT ---
History of Present Illness General Chief Complaint: Eye Problems Stated Complaint: L EYE BLEED Nursing Triage Note: Pt ambulates to room #5 with c/o "bleeding" to L eye. Pt reports on this day at approx 1930, he felt a sharp pain to L eye et noticed bleeding to L medial sclera with gradual progression of bleeding towards L lateral iris. Pt reports no new loss of vision, but reports blurred vision. Pt reports he is currently taking chemotherapy tx for occular melanoma to L eye. Pt reports he recieved injection to L eye on 08/28/20. A&OX4. Source: patient Exam Limitations: no limitations (MISAEL BECERRA,GLENIS STUDENT) History of Present Illness Date Seen by Provider: Sep 01, 2020 Time Seen by Provider: 23:20 Initial Comments Patient is a 39yo male c/o left eye bleeding and pain that began around 19:30 tonight. He has a hx of ocular melanoma diagnosed on September 2019, and receives chemotherapy injections. He states he has experienced mild bleeding with injections in the past, but his last injection was on 08/21, and he also denies ever having pain with injections. He admits having some blurry vision due to receiving radiation, but denies acute changes in vision at this time. He follows with Dr. French's office, and Dr. Whitney at [facility] in [place]. Denies recent trauma to the eye, and he does not take any anticoagulants. Timing/Duration: this evening Location: eye (L) (MISAEL BECERRA,MED STUDENT) Allergies and Home Medications Allergies Coded Allergies: Penicillins (Verified Allergy, Unknown, 07/17/20) aspirin (Verified Allergy, Unknown, 07/17/20) Home Medications Lisinopril 20 Mg Tablet, 20 MG PO DAILY, (Reported) Ondansetron HCl 4 Mg Tab, 4 MG PO PRN PRN for NAUSEA/VOMITING-1ST LINE, (Reported) Pantoprazole Sodium 40 Mg Tablet., 40 MG PO DAILY Prescribed by: MENDY DE LEON on 07/19/20 1040 Sucralfate 1 Gm Tablet, 1 GM PO QID Prescribed by: DOREEN WAYNE on 07/19/20 1253 Sunitinib Malate 25 Mg Capsule, 25 MG PO DAILY, (Reported) Patient Home Medication List Home Medication List Reviewed: Yes (RIANNA PRICE MD) Review of Systems Review of Systems Constitutional: No chills, No dizziness, No fever Eyes: See HPI Ears: No Symptoms Reported Nose: denies congestion, denies epistaxis, denies pain Mouth: denies pain, denies swelling, denies bloody discharge Throat: denies pain, denies swelling Respiratory: No cough, No short of breath, No wheezing Cardiovascular: No chest pain, No palpitations, No syncope Gastrointestinal: No abdominal pain, No nausea, No vomiting Musculoskeletal: no symptoms reported Skin: no symptoms reported Neurological: Denies Headache, Denies Numbness, Denies Tingling (MISAEL BECERRA MED STUDENT) Past Ajmklem-Osudta-Lzsjdx Hx Patient Social History Alcohol Use: Denies Use Recreational Drug Use: No Smoking Status: Former Smoker Type Used: Cigarettes Former Smoker, Quit: Jul 17, 2005 2nd Hand Smoke Exposure: Yes Recent Foreign Travel: No Contact w/Someone Who Travel: No Recent Infectious Disease Expo: No Recent Hopitalizations: No (MISAEL BECERRA MED STUDENT) Seasonal Allergies Seasonal Allergies: No (MISAEL BECERRA MED STUDENT) Past Medical History Surgeries: Yes (CARDIAC CATH-NO INTERVENTION;LEFT EYE LASER SURGERY + AVASTIN INJ) Cardiac, Eye Surgery Respiratory: No Cardiac: Yes (CARDIAC CATH-NO INTERVENTION; QUIT TAKING COREG FOR HTN > 10 YEARS AGO. 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) Cancer: Yes (UVEAL MELANOMA OF L EYE-DX 12/2019--S/P RADIATION,AVASTIN INJECTIONS,LASER) Did You Recieve Any Treatments: Yes What Type of Treatment Did You: Chemotherapy, Radiation Psychosocial: No Integumentary: No Blood Disorders: No Adverse Reaction/Blood Tranf: No (N/A) (MISAEL BECERRA MED STUDENT) Family Medical History No Pertinent Family Hx (MISAEL BECERRA MED STUDENT) Physical Exam Vital Signs Vital Signs - First Documented 09/01/20 23:00 Temp 35.9 Pulse 75 Resp 18 B/P (MAP) 138/97 (111) Pulse Ox 97 O2 Delivery Room Air (RIANNA PRICE MD) Height, Weight, BMI Height: 6'3.00" Weight: 278lbs. 0.0oz. 126.134010ep; 37.00 BMI Method:Stated General Appearance: WD/WN, no apparent distress Eyes: bilateral eye PERRL, bilateral eye EOMI Neck: full range of motion, normal inspection Cardiovascular: regular rate, rhythm, no edema, no murmur Respiratory: lungs clear, no respiratory distress, no accessory muscle use Gastrointestinal: normal bowel sounds, non tender, soft Neurologic/Psychiatric: alert, normal mood/affect, oriented x 3 Skin: normal color, warm/dry (MISAEL BECERRA,MED STUDENT) Progress/Results/Core Measures Results/Orders My Orders Orders - RIANNA PRICE MD Tetracaine 0.5% Ophth Mica Sdv (Tetracai (09/02/20 00:00) Fluorescein Strips ([id number]) (09/02/20 00:00) Balanced Salt Irrigation Soln (Bss Irrig (09/02/20 00:00) Balanced Salt Irrigation Soln (Bss Irrig (09/02/20 00:30) (RIANNA PIRCE MD) Medications Given in ED (RIANNA PRICE MD) Vital Signs/I&O (RIANNA PRICE MD) Blood Pressure Mean: 111 Departure Impression Primary Impression: Subconjunctival hemorrhage Qualified Codes: H11.32 - Conjunctival hemorrhage, left eye Additional Impressions: Foreign body, eye Qualified Codes: T15.92XA - Foreign body on external eye, part unspecified, left eye, initial encounter Ocular melanoma Qualified Codes: C69.91 - Malignant neoplasm of unspecified site of right eye Left eye pain Disposition: 01 HOME, SELF-CARE Condition: Improved Departure-Patient Inst. Decision time for Depature: 00:15 (RIANNA PRICE MD) Referrals: SHANELLE GILLIS MD (PCP/Family) Primary Care Physician Patient Instructions: Foreign Body in Eye Add. Discharge Instructions: There was a fine hair in your eye. It is unclear if this was causing your pain. Further evaluation by an data programmer is recommended. Please meet Dr. Reyez at [facility] at 8: 00 this morning. You may use artificial tears liberally to lubricate your eye. You may use 2 or 3 drops of the tetracaine/saline solution each hour if needed for pain. You may take Tylenol for pain. If symptoms become more severe, please call Dr. Price in the ER at [phone]. All discharge instructions reviewed with patient and/or family. Voiced understanding. Medical Student Attestation and Attending Note: I have personally interviewed and examined this patient along with Misael Becerra MS4. I have reviewed student documentation including history, physical, and assessments. I agree with the documentation except where otherwise noted. Patient is established with [facility]. I consulted Dr. Reyez from the clinic regarding the situation. Patient seems to have scleral subconjunctival hemorrhage on the superior and lateral periphery of the iris. Tetracaine drops were applied. This reduce but did not relieve his pain. The eye was further examined with fluorescein. There appeared to be a very fine hair crossing the cornea. This was lifted with a cotton swab. No abrasions or other foreign bodies were identified. Eye was irrigated with balanced saline. Arrangements were made for patient to follow-up with Dr. Reyez in the clinic at 8:00. A bottle of balanced saline with 0.5 mL of tetracaine was dispensed for patient to use in the meantime. Exam: General: Alert, oriented, no acute distress, well developed HEENT: Normocephalic and atraumatic. Some conjunctival hemorrhage superior and lateral to the iris. Fluorescein exam reveals a fine hair across the cornea and sclera. Heart: Regular rate and rhythm without murmur Lungs: Clear bilaterally with normal effort Neuropsych: Alert, oriented, no focal deficits Skin: Warm and dry without rashes (RIANNA PRICE MD) Copy Copies To 1: CHRISTIANO FRENCH OD, JOSEPH,MED STUDENT Sep 01, 2020 23:28 RIANNA PRICE MD Sep 02, 2020 00:18
[2020-09-02] MEDS ORDERED: BSS 15 ML IR ONE
[2020-09-02] MEDS ORDERED: TETRACAINE 0.5% OPHTH SOLN 4 ML BTL (SINGLE DOSE ONLY) OU ONE
[2020-09-02] MEDS ORDERED: FLUORESCEIN (FLUOR-I-STRIPS) 1 MG STRP OU ONE
[2020-09-02 00:30] VITALS: BP 128/94
[2020-09-02] MEDS ORDERED: BSS 15 ML IR PRN (00:30)
== END 2020-09-02 00:30 | disposition home or self-care (01) ==
LOC: EDUNIT# 22:44 → ER 22:46
DX: T15.92XA Foreign body on external eye, part unspecified, left eye, initial encounter (principal); C69.92 Malignant neoplasm of unspecified site of left eye; H11.32 Conjunctival hemorrhage, left eye; I10 Essential (primary) hypertension; K21.9 Gastro-esophageal reflux disease without esophagitis; Z87.891 Personal history of nicotine dependence; Z77.22 Contact with and (suspected) exposure to environmental tobacco smoke (acute) (chronic); Z88.0 Allergy status to penicillin; Z88.6 Allergy status to analgesic agent
CPT/HCPCS: 99283

== ENCOUNTER → 2021-01-25 | Outpatient (CLI) | payer BC, OTHER ==
[~2021-01-25] MED LIST changes: -CLIN150C17 PO; +CLIN150C18 PO; -LISI-552 PO; +LISI20TA26 PO
--- NOTE | 2021-01-25 15:24 | Diagnostic Imaging Report ---
INDICATION: Left upper chest pain - duration 1 week. COMPARISON: None. FINDINGS: Frontal and lateral views of the chest demonstrate normal heart size and pulmonary vascularity. The lungs are clear. There are no signs of infiltrate, pleural effusions or pneumothoraces. The visualized osseous structures show no acute abnormalities. IMPRESSION: 1. No acute process. No signs of infiltrates, effusions or pneumothoraces. Dictated by: Dictated on workstation # [id number]
== END ==
LOC: RAD 14:09
PROVIDERS: ATTEND Family Medicine
DX: R07.89 Other chest pain (principal)
CPT/HCPCS: 71046

== ENCOUNTER → 2021-01-29 | Outpatient (CLI) | payer BC, OTHER | LOC: CARD 10:38 | PROVIDERS: ATTEND Family Medicine | DX: R07.9 Chest pain, unspecified (principal) ==

== ENCOUNTER → 2021-01-29 | Outpatient (CLI) | payer BC, OTHER | LOC: CARD 10:31 | PROVIDERS: ATTEND Family Medicine | DX: R07.9 Chest pain, unspecified (principal) | CPT/HCPCS: 93005 ==

== ENCOUNTER 2021-04-15 09:11 | Emergency (ER) | payer BC ==
[~2021-04-15] VITALS: Ht 193 cm; Wt 142.8 kg
--- NOTE | 2021-04-15 09:56 | ED Abdominal Pain ---
General Chief Complaint: Abdominal/GI Problems Stated Complaint: CONSTIPATION Nursing Triage Note: pt presents to ed via pov from home accompanied by with complaints of constipation x 1 week. pt reports he has tried multiple over the counter medications with no relief. Source of Information: Patient Exam Limitations: No Limitations History of Present Illness Date Seen by Provider: Apr 15, 2021 Time Seen by Provider: 09:31 Initial Comments Here with report of constipation over the last week. He has tried [id number] treatments including Senokot, Dulcolax and did a medium-sized bottle of MiraLAX (the whole thing) yesterday. Did have moderate amount of watery/loose stool yesterday but still feels constipated. Complains of pain to the left flank left lower quadrant. Denies fever chills. 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 Does have cancer history in his family. Denies blood in stool or urine. Denies dysuria. Otherwise eating and drinking okay. Timing/Duration: 1 Week Severity/Quality: Mild, Aching Location: LLQ, Flank Radiation: No Radiation Modifying Factors: Improves With Defecating, Improves With Resting Associated Symptoms: No Chest Pain, No Fever/Chills, No Headache, No Nausea/Vomiting, No Swelling/Mass in Abdomen, No Weakness Allergies and Home Medications Allergies Coded Allergies: Penicillins (Verified Allergy, Unknown, 07/17/20) aspirin (Verified Allergy, Unknown, 07/17/20) Home Medications Lisinopril 20 Mg Tablet, 20 MG PO DAILY, (Reported) Ondansetron HCl 4 Mg Tab, 4 MG PO PRN PRN for NAUSEA/VOMITING-1ST LINE, (Reported) Pantoprazole Sodium 40 Mg Tablet.dr, 40 MG PO DAILY Prescribed by: MENDY DE LEON on 07/19/20 1040 Sucralfate 1 Gm Tablet, 1 GM PO QID Prescribed by: DOREEN WAYNE on 07/19/20 1253 Sunitinib Malate 25 Mg Capsule, 25 MG PO DAILY, (Reported) Patient Home Medication List Home Medication List Reviewed: Yes Review of Systems Review of Systems Constitutional: No chills, No fever EENTM: No Symptoms Reported Respiratory: Denies Cough, Denies Shortness of Air Cardiovascular: No Symptoms Reported Gastrointestinal: Abdominal Pain, Constipated; Denies Nausea, Denies Vomiting Genitourinary: Denies Burning, Denies Pain Musculoskeletal: no symptoms reported Skin: no symptoms reported Psychiatric/Neurological: No Symptoms Reported All Other Systems Reviewed Negative Unless Noted: Yes Past Divirwa-Xrlafu-Dfbhwt Hx Patient Social History Tobacco Use?: No Use of E-Cig and/or Vaping dev: No Substance use?: No Alcohol Use?: No Immunizations Up To Date First/Initial COVID19 Vaccinat: 11/29/20 COVID19 Vaccine 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 0.0oz. [id number]; 38.00 BMI Method:Stated General Appearance: WD/WN, no apparent distress HEENT: PERRL/EOMI, pharynx normal Neck: full range of motion, supple Respiratory: lungs clear, normal breath sounds Cardiovascular: regular rate, rhythm, no murmur Gastrointestinal: soft; No guarding, No rebound; tenderness (Left lower quadrant lateral aspect) Rectal: normal exam, normal rectal tone, other (No obvious stool ball, no mass and no noted hemorrhoids.) Extremities: non-tender, normal inspection Back: normal inspection, no CVA tenderness, no vertebral tenderness Neurologic/Psychiatric: alert, oriented x 3 Skin: normal color, warm/dry Progress/Results/Core Measures Results/Orders Lab Results Laboratory Tests Test 04/15/21 09:53 04/15/21 10:38 Range/Units Urine Color YELLOW Urine Clarity CLEAR Urine pH 6.0 5-9 Urine Specific [place] 1.010 L 1.016-1.022 Urine Protein NEGATIVE NEGATIVE Urine Glucose (UA) NEGATIVE NEGATIVE Urine Ketones NEGATIVE NEGATIVE Urine Nitrite NEGATIVE NEGATIVE Urine Bilirubin NEGATIVE NEGATIVE Urine Urobilinogen 0.2 < = 1.0 MG/DL Urine Leukocyte Esterase NEGATIVE NEGATIVE Urine RBC (Auto) NEGATIVE NEGATIVE Urine RBC RARE /HPF Urine WBC NONE /HPF Urine Crystals NONE /LPF Urine Bacteria NEGATIVE /HPF Urine Casts NONE /LPF Urine Mucus NEGATIVE /LPF Urine Culture Indicated NO White Blood Count 5.0 4.3-11.0 10^3/uL Red Blood Count 4.92 4.30-5.52 10^6/uL Hemoglobin 14.9 13.3-17.7 g/dL Hematocrit 43 40-54 % Mean Corpuscular Volume 88 80-99 fL Mean Corpuscular Hemoglobin 30 25-34 pg Mean Corpuscular Hemoglobin Concent 35 32-36 g/dL Red Cell Distribution Width 13.1 10.0-14.5 % Platelet Count 174 130-400 10^3/uL Mean Platelet Volume 8.7 L 9.0-12.2 fL Immature Granulocyte % (Auto) 0 % Neutrophils (%) (Auto) 53 42-75 % Lymphocytes (%) (Auto) 31 12-44 % Monocytes (%) (Auto) 12 0-12 % Eosinophils (%) (Auto) 3 0-10 % Basophils (%) (Auto) 0 0-10 % Neutrophils # (Auto) 2.7 1.8-7.8 10^3/uL Lymphocytes # (Auto) 1.6 1.0-4.0 10^3/uL Monocytes # (Auto) 0.6 0.0-1.0 10^3/uL Eosinophils # (Auto) 0.2 0.0-0.3 10^3/uL Basophils # (Auto) 0.0 0.0-0.1 10^3/uL Immature Granulocyte # (Auto) 0.0 0.0-0.1 10^3/uL Sodium Level 136 135-145 MMOL/L Potassium Level 3.7 3.6-5.0 MMOL/L Chloride Level 105 98-107 MMOL/L Carbon Dioxide Level 21 21-32 MMOL/L Anion Gap 10 5-14 MMOL/L Blood Urea Nitrogen 11 7-18 MG/DL Creatinine 0.79 0.60-1.30 MG/DL Estimat Glomerular Filtration Rate > 60 BUN/Creatinine Ratio 14 Glucose Level 164 H 70-105 MG/DL Calcium Level 9.3 8.5-10.1 MG/DL Corrected Calcium 9.1 8.5-10.1 MG/DL Total Bilirubin 0.6 0.1-1.0 MG/DL Aspartate Amino Transf (AST/SGOT) 28 5-34 U/L Alanine Aminotransferase (ALT/SGPT) 48 0-55 U/L Alkaline Phosphatase 85 40-136 U/L C-Reactive Protein High Sensitivity 0.46 0.00-0.50 MG/DL Total Protein 7.2 6.4-8.2 GM/DL Albumin 4.2 3.2-4.5 GM/DL My Orders Orders - CHARLEY STEPHENS MD Ua Culture If Indicated (04/15/21 09:50) Acute Abd Series (04/15/21 09:50) Ct Abdomen/Pelvis W (04/15/21 10:30) Cbc With Automated Diff (04/15/21 10:30) Comprehensive Metabolic Panel (04/15/21 10:30) Hs C Reactive Protein (04/15/21 10:30) Ns Iv 1000 Ml (Sodium Chloride 0.9%) (04/15/21 10:30) Ed Iv/Invasive Line Start (04/15/21 10:30) Ns Iv 1000 Ml (Sodium Chloride 0.9%) (04/15/21 10:30) Iohexol Injection (Omnipaque 350 Mg/Ml 1 (04/15/21 10:45) Received Contrast (Hold Metformin- Contr (04/15/21 10:45) Ns (Ivpb) (Sodium Chloride 0.9% Ivpb Bag (04/15/21 10:45) Medications Given in ED Current Medications Medications Dose Ordered Sig/Sammi Route Start Time Stop Time Status Last Admin Dose Admin Iohexol 100 ml ONCE ONCE IV 04/15/21 10:45 04/15/21 10:46 DC 04/15/21 10:47 100 ML Sodium Chloride 100 ml ONCE ONCE IV 04/15/21 10:45 04/15/21 10:46 DC 04/15/21 10:48 80 ML Vital Signs/I&O 04/15/21 09:17 Temp 36.2 Pulse 80 Resp 18 B/P (MAP) 179/112 (134) Pulse Ox 96 Blood Pressure Mean: 134 Progress Progress Note : Progress Note Seen and evaluated. Rectal exam performed which did not reveal any stool ball or mass. We will get acute abdominal series and check urine. I did discuss with him the likelihood of CT abdomen and pelvis with concerns for diverticulitis as well but we want to see the other tests before we move forward with that. Patient and family agree. 1030: We will move ahead with CT abdomen pelvis. X-ray is not showing significant constipation. There is a right lung nodule that radiology is recommending further evaluation. He did have CT of the chest as well as MRI earlier this week at [facility] so we will not pursue that at this point. We will check basic labs and give normal saline 1 L bolus. Monitor patient. 1255: CT is listed below. There was mention of possible colitis versus collapsed bowel. Given that his CRP is negative and his white count is normal I believe this is more functional and not an indication of inflammatory situation currently. I did discuss this with the patient. We will initiate clear liquid/light diet as outpatient and he will follow up with his doctor as needed. I will send a copy of the chart to his primary care doctor. Discharged home with return precautions. Patient verbalized understanding of instructions and agreement with plan. Diagnostic Imaging Diagonstic Imaging: Xray Plain Films/CT/US/NM/MRI: chest, abdomen Comments [facility], [place] NAME: ASHU CUNHA [facility] REC#: [id number] PT STATUS: REG ER : 1980 PHYSICIAN: CHARLEY STEPHENS MD ADMIT DATE: 04/15/21/ER Signed Date of Exam:04/15/21 ACUTE ABD SERIES EXAM: ACUTE ABD SERIES INDICATION: Abdominal pain. COMPARISON: MRI abdomen without and with IV contrast 07/03/2020. FINDINGS: Normal heart size and central pulmonary vascularity. Subtle nodular density in the right midlung. No pleural effusion or pneumothorax. No free intraperitoneal air. Nonspecific bowel gas pattern. No suspicious radiopaque densities. No large stool burden. IMPRESSION: 1. Possible nodular opacity in the right midlung is indeterminate. This could be better evaluated with chest CT. 2. No acute radiographic findings in the abdomen. Dictated by: Dictated on workstation # [id number] Dict: 04/15/21 1029 Trans: 04/15/21 1044 [facility] [id number] Interpreted by: KIM NOBLE MD Electronically signed by: KIM NOBLE MD 04/15/21 1044 Diagonstic Imaging: CT Plain Films/CT/US/NM/MRI: abdomen, pelvis Comments [facility] [place] NAME: ASHU CUNHA [facility] REC#: [id number] PT STATUS: REG ER : 1980 PHYSICIAN: CHARLEY STEPHENS MD ADMIT DATE: 04/15/21/ER Draft Date of Exam:04/15/21 CT ABDOMEN/PELVIS W PROCEDURE: CT abdomen and pelvis with contrast. TECHNIQUE: Multiple contiguous axial images were obtained through the abdomen and pelvis after administration of intravenous contrast. Auto Exposure Controls were utilized during the CT exam to meet ALARA standards for radiation dose reduction. All CT scans use one or more of the following dose optimizing techniques: automated exposure control, MA and/or KvP adjustment based on patient size and exam type or iterative reconstruction. INDICATION: 40-year-old male, history of ocular melanoma, just finished chemotherapy. Currently with abdominal pain. CORRELATION STUDY: None. FINDINGS: LOWER THORAX: Clear. Small hiatal hernia. LIVER: Diffuse hepatic steatosis without definitive focal lesion. GALLBLADDER: Present and unremarkable. No bile duct dilatation. SPLEEN: Unremarkable. PANCREAS: Unremarkable. ADRENAL GLANDS: Unremarkable. KIDNEYS: Normal configuration. No calcification or obstruction. ABDOMINAL AORTA: Unremarkable, nonaneurysmal. GASTROINTESTINAL TRACT: There is no definitive obstruction or inflammation. Normal pancreas present right lower quadrant. There is asymmetric areas of colonic wall thickening region of the proximal hepatic flexure into the proximal transverse colon. This appears to persist on multiple sequences URINARY BLADDER: Unremarkable. REPRODUCTIVE: Unremarkable. OSSEOUS STRUCTURES: There is asymmetric disc space narrowing with disc osteophyte formation L4 L5L 5S1 level with resultant at least mild foraminal narrowing. OTHER: None. IMPRESSION: 1. Asymmetric colonic wall thickening of the hepatic flexure into the proximal mid transverse colon. Likely attributed to its collapsed state. Component of colitis is considered less likely but not excluded. No bowel obstruction. 2. Hepatic steatosis. Dictated on workstation # [id number] Dict: 04/15/21 1226 Trans: 04/15/21 1233 [facility] [id number] Interpreted by: ROXANA AWAD DO Electronically signed by: Reviewed: Reviewed by Me Departure Impression Primary Impression: Left sided abdominal pain Additional Impression: Constipation Qualified Codes: K59.00 - Constipation, unspecified Disposition: HOME, SELF-CARE Condition: Improved Departure-Patient Inst. Decision time for Depature: 13:00 Referrals: SHANELLE GILLIS MD (PCP/Family) Primary Care Physician Patient Instructions: Severe Abdominal Pain, Adult (DC), Constipation, Adult (DC) Add. Discharge Instructions: All discharge instructions reviewed with patient and/or family. Voiced understanding. You may use MiraLAX or the generic 1/2-1 capful twice daily as needed to keep stools soft and normal. You may increase or decrease the dose as needed to keep stools in normal range. Otherwise take your medications as previously prescribed. Follow-up with your doctor as scheduled and follow-up with your primary care doctor this week as needed and to discuss further evaluation including possible colonoscopy if needed. Return for worse pain, fever, vomiting, weakness, breathing problems, blood in your vomit or stool or other concerns as needed. Copy Copies To 1: SHANELLE GILLIS MD, TIMOTHY D MD Apr 15, 2021 09:56
[2021-04-15 09:59] LABS: BILIRUBIN,URINE NEGATIVE (NEGATIVE); CLARITY,URINE CLEAR; COLOR,URINE YELLOW; GLUCOSE, URINE (UA) NEGATIVE (NEGATIVE); KETONES,URINE NEGATIVE (NEGATIVE); LEUKOCYTE ESTERASE ,URINE NEGATIVE (NEGATIVE); NITRITE,URINE NEGATIVE (NEGATIVE); PROTEIN,URINE NEGATIVE (NEGATIVE)
[2021-04-15 10:11] LABS: RBC,URINE RARE /HPF
[2021-04-15 10:12] LABS: BACTERIA,URINE NEGATIVE /HPF
[2021-04-15] MEDS ORDERED: NS IV 1000 ML 1,000 ML IV STA (10:30)
[2021-04-15] MEDS ORDERED: NS IV 1000 ML 1,000 ML ONE (10:30)
--- NOTE | 2021-04-15 10:35 | Diagnostic Imaging Report ---
EXAM: ACUTE ABD SERIES INDICATION: Abdominal pain. COMPARISON: MRI abdomen without and with IV contrast 07/03/2020. FINDINGS: Normal heart size and central pulmonary vascularity. Subtle nodular density in the right midlung. No pleural effusion or pneumothorax. No free intraperitoneal air. Nonspecific bowel gas pattern. No suspicious radiopaque densities. No large stool burden. IMPRESSION: 1. Possible nodular opacity in the right midlung is indeterminate. This could be better evaluated with chest CT. 2. No acute radiographic findings in the abdomen. Dictated by: Dictated on workstation # [id number]
[2021-04-15] MEDS ORDERED: HOLD METFORMIN - RECEIVED CONTRAST 20 ML VIAL IV SCH (10:45)
[2021-04-15] MEDS ORDERED: NS 100 ML (IVPB) BAG IV ONE (10:45)
[2021-04-15] MEDS ORDERED: IOHEXOL 350 MG/ML 100 ML (OMNIPAQUE 350) VIAL IV ONE (10:45)
[2021-04-15 10:50] LABS: BASOPHILS % (AUTO) 0 % (0-10); EOSINOPHILS # (AUTO) 0.2 10^3/uL (0.0-0.3); EOSINOPHILS % (AUTO) 3 % (0-10); HEMATOCRIT 43 % (40-54); HEMOGLOBIN 14.9 g/dL (13.3-17.7); LYMPHOCYTES # (AUTO) 1.6 10^3/uL (1.0-4.0); LYMPHOCYTES % (AUTO) 31 % (12-44); MEAN CORPUSCULAR HEMOGLOBIN 30 pg (25-34); MEAN CORPUSCULAR HGB CONC 35 g/dL (32-36); MEAN CORPUSCULAR VOLUME 88 fL (80-99); MEAN PLATELET VOLUME 8.7 fL (9.0-12.2); MONOCYTES # (AUTO) 0.6 10^3/uL (0.0-1.0); MONOCYTES % (AUTO) 12 % (0-12); NEUTROPHILS # (AUTO) 2.7 10^3/uL (1.8-7.8); NEUTROPHILS % (AUTO) 53 % (42-75); PLATELET COUNT 174 10^3/uL (130-400)
[2021-04-15 11:03] LABS: ALANINE AMINOTRANSFERASE 48 U/L (0-55); ALBUMIN 4.2 GM/DL (3.2-4.5); ALKALINE PHOSPHATASE 85 U/L (40-136); BILIRUBIN,TOTAL 0.6 MG/DL (0.1-1.0); BUN/CREATININE RATIO 14; CALCIUM 9.3 MG/DL (8.5-10.1); CARBON DIOXIDE 21 MMOL/L (21-32); CHLORIDE 105 MMOL/L (98-107); CREATININE SERUM 0.79 MG/DL (0.60-1.30); GFR ESTIMATED > 60; GLUCOSE 164 MG/DL (70-105); POTASSIUM 3.7 MMOL/L (3.6-5.0); SODIUM 136 MMOL/L (135-145); TOTAL PROTEIN 7.2 GM/DL (6.4-8.2)
--- NOTE | 2021-04-15 12:34 | Diagnostic Imaging Report ---
PROCEDURE: CT abdomen and pelvis with contrast. TECHNIQUE: Multiple contiguous axial images were obtained through the abdomen and pelvis after administration of intravenous contrast. Auto Exposure Controls were utilized during the CT exam to meet ALARA standards for radiation dose reduction. All CT scans use one or more of the following dose optimizing techniques: automated exposure control, MA and/or KvP adjustment based on patient size and exam type or iterative reconstruction. INDICATION: 40-year-old male, history of ocular melanoma, just finished chemotherapy. Currently with abdominal pain. CORRELATION STUDY: None. FINDINGS: LOWER THORAX: Clear. Small hiatal hernia. LIVER: Diffuse hepatic steatosis without definitive focal lesion. GALLBLADDER: Present and unremarkable. No bile duct dilatation. SPLEEN: Unremarkable. PANCREAS: Unremarkable. ADRENAL GLANDS: Unremarkable. KIDNEYS: Normal configuration. No calcification or obstruction. ABDOMINAL AORTA: Unremarkable, nonaneurysmal. GASTROINTESTINAL TRACT: There is no definitive obstruction or inflammation. Normal pancreas present right lower quadrant. There is asymmetric areas of colonic wall thickening region of the proximal hepatic flexure into the proximal transverse colon. This appears to persist on multiple sequences URINARY BLADDER: Unremarkable. REPRODUCTIVE: Unremarkable. OSSEOUS STRUCTURES: There is asymmetric disc space narrowing with disc osteophyte formation L4 L5L 5S1 level with resultant at least mild foraminal narrowing. OTHER: None. IMPRESSION: 1. Asymmetric colonic wall thickening of the hepatic flexure into the proximal mid transverse colon. Likely attributed to its collapsed state. Component of colitis is considered less likely but not excluded. No bowel obstruction. 2. Hepatic steatosis. Dictated by: Dictated on workstation # [id number]
[2021-04-15 13:06] VITALS: BP 145/101
== END 2021-04-15 13:10 | disposition home or self-care (01) ==
LOC: EDUNIT# 09:11 → ER 09:13
DX: C69.90 Malignant neoplasm of unspecified site of unspecified eye (principal); K59.00 Constipation, unspecified; I25.2 Old myocardial infarction; I10 Essential (primary) hypertension; K21.9 Gastro-esophageal reflux disease without esophagitis; Z79.899 Other long term (current) drug therapy
CPT/HCPCS: 36415; 74022; 74177; 80053; 81000; 85025; 86141

== ENCOUNTER 2021-05-15 05:29 | Outpatient (RCR) | payer BC ==
[~2021-05-15] VITALS: Ht 193 cm; Wt 146.8 kg
[2021-05-16] MEDS ORDERED: PANT40TA2 PO (13:03)
== END 2021-05-15 08:42 | disposition home or self-care (01) ==
LOC: PREOP 05:29
PROVIDERS: ATTEND Surgery
DX: Z01.818 Encounter for other preprocedural examination (principal); Z20.822 Contact with and (suspected) exposure to COVID-19
CPT/HCPCS: 87635

== ENCOUNTER 2021-05-16 12:30 | Day surgery (SDC) | payer BC ==
[2021-05-16] VITALS (16 sets, daily range): BP systolic 117–148; BP diastolic 62–104
[~2021-05-16] VITALS: Ht 193 cm; Wt 146.8 kg
--- NOTE | 2021-05-16 13:02 | Conscious Sedation/ASA ---
Conscious Sedation Pre-Proced Time 13:00 ASA Score 2 For ASA 3 and 4: Consider anesthesia and medical clearance. Also, for patients with a history of failed moderate sedation consider anesthesia. Airway Lungs Heart ASA score ASA 1: a normal healthy patient ASA 2: a patient with a mild systemic disease (mid diabetes, controlled hypertension, obesity ASA 3: a patient with a severe systemic disease that limits activity (angina, COPD, prior Myocardial infarction) ASA 4: a patient with an incapacitating disease that is a constant threat to life (CHF, renal failure) ASA 5: a moribund patient not expected to survive 24 hrs. (ruptured aneurysm) ASA 6: a declared brain- patient whose organs are being harvested. For emergent operations, add the letter E after the classification Mallampati Classification Grade 2 Sedation Plan Analgesia, Amnesia, Plan communicated to team members, Discussed options with patient/fam, Discussed risks with patient/fam The patient is an appropriate candidate to undergo the planned procedure, sedation, and anesthesia. The patient immediately re-assessed prior to indication. MENDY DE LEON MD May 16, 2021 13:02
--- NOTE | 2021-05-16 13:02 | Progress Note-Pre Operative ---
Pre-Operative Progress Note H&P Reviewed The H&P was reviewed, patient examined and no changes noted. Date Seen by Provider: May 16, 2021 Time Seen by Provider: 13:00 Date H&P Reviewed: May 16, 2021 Time H&P Reviewed: 13:00 Pre-Operative Diagnosis: MENDY SWANSON MD May 16, 2021 13:02
[2021-05-16] MEDS ORDERED: PANT40TA2 PO (13:03)
--- NOTE | 2021-05-16 13:04 | Discharge Inst-Surgical ---
D/C Lap Instructions-MOISES New, Converted, or Re-Newed RX: RX on Chart Follow Up Activity as tolerated Regular Diet Symptoms to Report: Fever over 101 degree F, Nausea/Vomiting Infection Signs and Symptoms to report: Increased redness, Foul odor of wound, Increased drainage Bathing instructions: May shower Operative Area Clean/Dry; Keep incision clean/dry If any problems/questions: Contact your physician or go to Emergency Room MENDY DE LEON MD May 16, 2021 13:04
[2021-05-16] MEDS ORDERED: ONDANSETRON 4 MG/2 ML (SDV) Z0FRAN IVP PRN (13:15)
[2021-05-16] MEDS ORDERED: ONDANSETRON 4 MG (ZOFRAN) ORAL DISSOLVE TAB PO PRN (13:15)
[2021-05-16] MEDS ORDERED: fentaNYL INJ 100 MCG/2 ML AMP IVP ONE (13:30)
[2021-05-16] MEDS ORDERED: HURRICAINE EXT TUBE (BENZOCAINE) XX PRN (13:30)
[2021-05-16] MEDS ORDERED: NS IV 500 ML 500 ML IV PRN (13:30)
[2021-05-16] MEDS ORDERED: MIDAZOLAM 5 MG/5 ML (VERSED) VIAL IV ONE (13:30)
[2021-05-16] MEDS ORDERED: LIDOCAINE JELLY 2% 6 ML SYRINGE MM PRN (13:30)
--- NOTE | 2021-05-17 04:01 | OPERATIVE REPORT ---
DATE OF SERVICE: 05/16/2021 ATTENDING PRIMARY CARE PHYSICIAN: Kadeem Wright MD PREOPERATIVE DIAGNOSES: Persistent gastroesophageal reflux disease despite medical management. 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 POSTOPERATIVE DIAGNOSES: No metastatic lesions throughout the esophagus or stomach. Reflux esophagitis between stage II and III, small to moderate size hiatal hernia approximately 2.5 to 3 cm in size, moderate gastritis. No distal obstructions. PROCEDURE: EGD with biopsy. SURGEON: Mendy De Leon MD ANESTHESIA: Conscious sedation. ESTIMATED BLOOD LOSS: Minimal. FINDINGS: No metastatic lesions throughout the esophagus or stomach. Reflux esophagitis between stage II and III, small to moderate size hiatal hernia approximately 2.5 to 3 cm in size, moderate gastritis. No distal obstructions. DISPOSITION: The patient tolerated the procedure well. INDICATIONS: The patient is a 40-year-old male who was found to have an ocular melanoma as well as a metastasis to what sounds to be the lung and liver. He was treated with oral chemotherapy, which he finished April of this year. He states that he has had a longstanding history of gastroesophageal reflux disease and we had done a previous endoscopy on him before, which did show a significant hiatal hernia. He has been corresponding with his other physicians and they wanted him to proceed with an EGD to make sure that there were no metastatic lesions throughout the upper gastrointestinal tract before proceeding with a hiatal hernia repair. He had been taking Sutent 25 mg daily for his oral chemotherapy. DESCRIPTION OF PROCEDURE: The patient was brought to the endoscopy suite, laid in the left lateral decubitus position. After adequate IV pain and sedative medications and conscious sedation anesthesia, the mouthpiece was applied. The endoscope was placed in the mouth, visualizing the pharynx and hypopharyngeal region. Vocal cords, epiglottis and vallecula identified and appeared to be normal. The endoscope was then gently intubated the esophageal opening and esophagus insufflated. The endoscope was then advanced to the first, second and third portion of esophagus at the level of the GE junction, a reflux esophagitis between stage II and III identified. There were no lesions throughout the esophagus to indicate any neoplastic process. Biopsies were taken of the GE junction with forceps with visualization of good hemostasis. The endoscope was advanced into the stomach and endoscope retroflexed, visualizing a small to moderate size hiatal hernia approximately 2.5 to 3 cm in size. There was a moderate severity gastritis. No neoplastic lesions as well as no ulcerations. Biopsy was taken of the antrum to rule out H. pylori. The endoscope was then advanced to the pylorus and the first and second portion of the duodenum, which appeared normal, again with no distal obstructions or any neoplastic lesions. The endoscope was then slowly withdrawn while taking a second look and suctioning of residual air with no additional findings. The patient tolerated the procedure well. If he continues to be symptomatic and he would like to have an antireflux procedure, we will proceed with an esophageal manometry study to rule out esophageal dysmotility and if this is the case, we will then proceed with hiatal hernia repair as well as an antireflux procedure depending on the results of the esophageal manometry study. Job ID: [id number] DocumentID: [id number] Dictated Date: 05/16/2021 16:30:27 Sheet Sewer Date: 05/17/2021 04:00:53 Dictated By: MENDY DE LEON MD
== END 2021-05-16 17:00 | disposition home or self-care (01) ==
LOC: ENDO 12:30
PROVIDERS: ATTEND Surgery
DX: K21.00 Gastro-esophageal reflux disease with esophagitis, without bleeding (principal); K29.30 Chronic superficial gastritis without bleeding; K44.9 Diaphragmatic hernia without obstruction or gangrene; I10 Essential (primary) hypertension; I25.2 Old myocardial infarction; Z85.840 Personal history of malignant neoplasm of eye; Z79.899 Other long term (current) drug therapy; Z80.8 Family history of malignant neoplasm of other organs or systems; Z80.1 Family history of malignant neoplasm of trachea, bronchus and lung; Z87.891 Personal history of nicotine dependence; Z87.11 Personal history of peptic ulcer disease

== ENCOUNTER 2021-06-07 05:36 | Outpatient (CLI) | payer BC ==
[~2021-06-07] VITALS: Ht 193 cm; Wt 136.4 kg
[2021-06-07] MEDS ORDERED: CLIN150C18 PO (11:37)
== END 2021-06-07 12:38 ==
LOC: PREOP 05:36
PROVIDERS: ATTEND Surgery
DX: Z01.818 Encounter for other preprocedural examination (principal)

== ENCOUNTER 2021-06-14 12:44 | Day surgery (SDC) | payer BC ==
[~2021-06-14] VITALS: Ht 193 cm; Wt 136.4 kg
[2021-06-14] VITALS (11 sets, daily range): BP systolic 133–154; BP diastolic 82–97
[~2021-06-14 12:44] MED LIST changes: +CLINDAMYCIN 600 MG/50 ML IVPB 50 ML IV NR; +LACTATED RINGERS 1,000 ML IV PRN
--- NOTE | 2021-06-14 13:35 | Progress Note-Pre Operative ---
Pre-Operative Progress Note H&P Reviewed The H&P was reviewed, patient examined and no changes noted. Date Seen by Provider: Jun 14, 2021 Time Seen by Provider: 13:00 Date H&P Reviewed: Jun 14, 2021 Time H&P Reviewed: 13:00 Pre-Operative Diagnosis: sx hiatal hernia MENDY DE LEON MD Jun 14, 2021 13:35
[2021-06-14] MEDS ORDERED: HYDR118S10 PO (13:37)
--- NOTE | 2021-06-14 13:38 | Discharge Inst-Surgical ---
D/C Lap Instructions-KIDO Reconcile Patient Problems Problems Reviewed?: Yes New, Converted, or Re-Newed RX: RX on Chart Follow Up Appt in 2 weeks Activity as tolerated No driving for 24 hours No driving while on pain medications Incentive Spirometry use every 2 hours while awake Clear liquid diet for 5-7 days, then soft foods for 5-7 days, then regular diet Avoid lettuce, spinach, breads, crackers, and carbonated beverages for 6 weeks Symptoms to Report: Fever over 101 degree F, Nausea/Vomiting Infection Signs and Symptoms to report: Increased redness, Foul odor of wound, Increased drainage Bathing instructions: May shower Operative Area Clean/Dry; Keep incision clean/dry If any problems/questions: Contact your physician or go to Emergency Room MARSHALL LOPEZ APRN Jun 14, 2021 13:38
[2021-06-14] MEDS ORDERED: NS IV 1000 ML 1,000 ML IV SCH (13:45)
[2021-06-14] MEDS ORDERED: fentaNYL INJ 1,000 MCG in NS (IVPB) 80 ML IV SCH (13:45)
[2021-06-14] MEDS ORDERED: ONDANSETRON 4 MG/2 ML (SDV) Z0FRAN IV PRN (13:45)
[2021-06-14] MEDS ORDERED: diphenhydrAMINE 50 MG/ML INJ (BENADRYL) IVP PRN (13:45)
[2021-06-14] MEDS ORDERED: METOCLOPRAMIDE INJ 10 MG/2 ML (REGLAN) IV PRN (13:45)
[2021-06-14] MEDS ORDERED: NALOXONE 0.4 MG/ML 1 ML (NARCAN) VIAL IV PRN (13:45)
[2021-06-14] MEDS ORDERED: diphenhydrAMINE 50 MG/ML INJ (BENADRYL) IV PRN (13:45)
[2021-06-14 13:50] LABS: BASOPHILS % (AUTO) 1 % (0-10); EOSINOPHILS # (AUTO) 0.2 10^3/uL (0.0-0.3); EOSINOPHILS % (AUTO) 3 % (0-10); HEMATOCRIT 44 % (40-54); HEMOGLOBIN 15.5 g/dL (13.3-17.7); LYMPHOCYTES # (AUTO) 1.5 10^3/uL (1.0-4.0); LYMPHOCYTES % (AUTO) 28 % (12-44); MEAN CORPUSCULAR HEMOGLOBIN 30 pg (25-34); MEAN CORPUSCULAR HGB CONC 35 g/dL (32-36); MEAN CORPUSCULAR VOLUME 86 fL (80-99); MEAN PLATELET VOLUME 9.6 fL (9.0-12.2); MONOCYTES # (AUTO) 0.6 10^3/uL (0.0-1.0); MONOCYTES % (AUTO) 10 % (0-12); NEUTROPHILS # (AUTO) 3.1 10^3/uL (1.8-7.8); NEUTROPHILS % (AUTO) 57 % (42-75); PLATELET COUNT 203 10^3/uL (130-400); WHITE BLOOD COUNT 5.4 10^3/uL (4.3-11.0)
[2021-06-14] MEDS ORDERED: RT-ALBUTEROL SULF 2.5 MG/3 ML PRE-MIX VIAL INH SCH (14:00)
[2021-06-14] MEDS ORDERED: LIDOCAINE/EPI 1%-1:200,000 (XYLOCAINE) 30 ML VIAL ONE (14:31)
[2021-06-14] MEDS ORDERED: proPOfol 200 MG/20 ML (DIPRIVAN) VIAL IV ONE (15:55)
[2021-06-14] MEDS ORDERED: LIDOCAINE PF 2% 5 ML (XYLOCAINE) VIAL ONE (15:55)
[2021-06-14] MEDS ORDERED: ROCURONIUM 10 MG/ML 5 ML SYRINGE IV ONE ×2 (15:55→17:16)
[2021-06-14] MEDS ORDERED: ONDANSETRON 4 MG/2 ML (SDV) Z0FRAN ONE ×2 (15:55→18:09)
[2021-06-14] MEDS ORDERED: fentaNYL INJ 100 MCG/2 ML AMP ONE ×2 (15:56→17:24)
[2021-06-14] MEDS ORDERED: MIDAZOLAM 2 MG/2 ML (VERSED) VIAL ONE (15:56)
[2021-06-14] MEDS ORDERED: GLYCOPYRROLATE 0.2 MG/ML (ROBINUL) 2 ML VIAL ONE ×2 (17:23→17:35)
[2021-06-14] MEDS ORDERED: NEOSTIGMINE 3 MG/3 ML VIAL ONE ×2 (17:23→17:35)
[2021-06-14] MEDS ORDERED: SEVOFLURANE (ULTANE) 15 ML INHAL SOLN ONE (17:36)
--- NOTE | 2021-06-14 17:43 | Anesthesia-General Post-Op ---
General Patient Condition Mental Status/LOC: Same as Preop Cardiovascular: Satisfactory Nausea/Vomiting: Absent Respiratory: Satisfactory Pain: Controlled Complications: Absent Post Op Complications Complications None Follow Up Care/Instructions Patient Instructions None needed. Anesthesia/Patient Condition Patient Condition Patient is doing well, no complaints, stable vital signs, no apparent adverse anesthesia problems. No complications reported per nursing. OSORIO JOHNOSN CRNA Jun 14, 2021 17:43
[2021-06-14] MEDS ORDERED: morphine INJ 10 MG/ML 1ML (SYR OR VIAL) IVP ONE (17:45)
[2021-06-14] MEDS ORDERED: fentaNYL INJ 100 MCG/2 ML AMP IVP ONE (17:45)
--- NOTE | 2021-06-14 17:54 | Progress Note-Post Operative ---
Post-Operative Progess Note Surgeon (s)/Care Management Assistant (s) Surgeon MENDY DE LEON MD Care Management Assistant: julien greenberg APRN Pre-Operative Diagnosis HIATAL HERNIA Post-Operative Diagnosis moderate sized HH(3cm), esophageal dysmotility. Procedure & Operative Findings Date of Procedure 06/14/21 Procedure Performed/Findings laparoscopic hiatal hernia repair with 180 degree anterior Derik fundoplication. Anesthesia Type get Estimated Blood Loss Estimated blood loss (mL): 50ml Specimens/Packing Specimens Removed none MENDY DE LEON MD Jun 14, 2021 17:54
[2021-06-14] MEDS: ONDANSETRON 4 MG/2 ML (SDV) Z0FRAN IVP PRN ×2 (18:09→18:45)
[2021-06-14] MEDS: 1/2 NS W/KCL 20 MEQ/L 1,000 ML IV SCH (20:34)
[2021-06-14] MEDS: metroNIDAZOLE 500MG/100ML IVPB 100 ML IV SCH (20:34)
[2021-06-14] MEDS: ENOXAPARIN 30 MG/0.3 ML (LOVENOX) SYR SC SCH (20:35)
[2021-06-14] MEDS: RT-ALBUTEROL SULF 2.5 MG/3 ML PRE-MIX VIAL INH SCH (21:39)
[2021-06-14] MEDS: ceFAZolin 2 GM IV Premixed 50 ML IV SCH (22:02)
--- NOTE | 2021-06-15 03:24 | OPERATIVE REPORT ---
DATE OF SERVICE: 06/14/2021 ATTENDING PRIMARY CARE PHYSICIAN: Dr. Wright. PREOPERATIVE DIAGNOSIS: Symptomatic moderate size hiatal hernia 3 cm in size. POSTOPERATIVE DIAGNOSIS: Symptomatic moderate size hiatal hernia 3 cm in size. PROCEDURE: Laparoscopic hiatal hernia repair and Derik anterior 180-degree wrap. SURGEON: Mendy Storm MD. JOURNEYMAN PIPE WELDER: Venancio Mott APRN. ANESTHESIA: General endotracheal. ESTIMATED BLOOD LOSS: 50 mL. FINDINGS: Symptomatic moderate size hiatal hernia 3 cm in size. DISPOSITION: The patient tolerated the procedure well. 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 He was treated with oral chemotherapy, which finished in early April of this year. He has had a longstanding history of gastroesophageal reflux disease. We had done a previous endoscopy on him before and was found to have a significant size hiatal hernia at that time. He has been corresponding with other physicians and they want him to proceed with an EGD as well as to verify there are no gastrointestinal metastatic lesions and then also proceed with a hiatal hernia repair due to his symptomatic reflux. Again, he went a followup EGD on 05/16/2021 and was found to have a moderate size hiatal hernia approximately 3 cm in size. Biopsies were negative for H. pylori as well as negative for Collazo's esophagus. He underwent an esophageal manometry study, which did show decreased waveform contractions as well as affective swallows. It was recommended that he proceed with a loose hiatal hernia repair as well as a loose wrap and it was decided to do an anterior 180-degree fundoplication. DESCRIPTION OF PROCEDURE: The patient was brought to the operating room, laid supine on the table. After adequate IV pain and sedative medications and general endotracheal intubation, the abdomen was prepped and draped in standard surgical fashion. A 0.5% Marcaine with epinephrine was used to anesthetize overlying skin in the left upper abdominal quadrant and a transverse skin incision made using 15 blade. An 0 silk suture was applied to the medial aspect of incision for retraction and a Veress needle inserted with low opening pressure of 0 mmHg. The abdomen was then insufflated to 15 mmHg pressure. Veress needle removed and a 5 mm XL trocar placed followed by a 5 mm 45-degree angle laparoscope visualizing the peritoneal cavity. The Veress needle removed with a low opening pressure of 0 mmHg. The abdomen was then insufflated to 15 mmHg pressure. The Veress needle removed and a 5 mm XL trocar placed followed by a 5 mm 45-degree angle laparoscope visualizing the peritoneal cavity. A 4-quadrant abdominal exploration was performed. There was mild hepatomegaly. We were unable to visualize the hiatal hernia at this time. Under direct visualization, we then proceeded to place midabdominal left to midline 10 mm port after the skin and peritoneal lining were anesthetized using 0.5% Marcaine with epinephrine and a transverse skin incision made using 15-blade. In a similar manner, a midabdominal right to midline 10 mm port was placed followed by a right upper abdominal quadrant 5 mm port. The epigastric region was then anesthetized, and a skin incision made using 11 blade and a tract created through the abdominal wall layers using a trocar to a 5 mm port. Through this opening, a medium sized Cisco liver retractor was placed and the left lobe of the liver retracted anteriorly and superiorly. The patient was then placed in steep reverse Trendelenburg position. We then proceeded to open up the pars flaccida using a Sonicision and proceeded with dissection of the hiatal hernia sac, taking the phrenoesophageal ligament until we reached the left golden of the diaphragm. The hiatal hernia was significant in size and a 36-Indonesian ViSiGi gastric tube was placed in the stomach. We then proceeded with approximation of the golden of the diaphragm posteriorly using 2-0 Surgidac sutures using the EndoStitch device over the bougie; however, loose and not abutting the bougie. Good hemostasis was observed. We then proceeded with a 180-degree Derik anterior fundoplication using the fundus of the stomach. The fundus of the stomach was completely mobilized, taking down the short gastric vessels using the Sonicision with visualization of good hemostasis. The fundus was then sutured to the esophagus as well as to the phrenoesophageal ligament anteriorly using interrupted 2-0 Surgidac sutures with visualization of good hemostasis. The liver retractor was then removed and the fascia and peritoneum to the 10 mm port sites were then closed under direct visualization using a Pravin-Benson device and 0 Vicryl suture. The abdomen was desufflated and the remaining ports removed. All skin incisions were closed using 4-0 Monocryl running subcuticular sutures. Wounds were then cleaned and covered with Dermabond. The patient tolerated the procedure well. We will proceed with a clear liquid diet. We will also proceed with pain control with a WEB SITE SPECIALIST pump. We will also proceed with DVT prophylaxis with early ambulation, calf SCDs as well as Lovenox injections. Tomorrow morning when he is tolerating clear liquids, has adequate pain control with oral pain medications, ambulating well, we will discharge him home. Job ID: [id number] DocumentID: [id number] Dictated Date: 06/14/2021 17:30:04 Assistant Director Of Residence Life Date: 06/15/2021 03:23:47 Dictated By: MENDY STORM MD
[2021-06-15] MEDS: metroNIDAZOLE 500MG/100ML IVPB 100 ML IV SCH ×2 (03:45→09:31)
[2021-06-15 03:46] VITALS: BP 132/81
[2021-06-15] MEDS: ceFAZolin 2 GM IV Premixed 50 ML IV SCH ×2 (04:58→12:36)
[2021-06-15] MEDS: 1/2 NS W/KCL 20 MEQ/L 1,000 ML IV SCH (04:58)
[2021-06-15 06:23] LABS: HEMATOCRIT 42 % (40-54); HEMOGLOBIN 14.1 g/dL (13.3-17.7); MEAN CORPUSCULAR HEMOGLOBIN 30 pg (25-34); MEAN CORPUSCULAR HGB CONC 34 g/dL (32-36); MEAN CORPUSCULAR VOLUME 89 fL (80-99); MEAN PLATELET VOLUME 9.5 fL (9.0-12.2); PLATELET COUNT 207 10^3/uL (130-400); WHITE BLOOD COUNT 8.9 10^3/uL (4.3-11.0)
[2021-06-15 07:50] VITALS: BP 131/79
[2021-06-15] MEDS: RT-ALBUTEROL SULF 2.5 MG/3 ML PRE-MIX VIAL INH SCH (08:03)
[2021-06-15] MEDS ORDERED: PANTOPRAZOLE 40 MG (PROTONIX) VIAL IV SCH (09:00)
[2021-06-15] MEDS ORDERED: SENNA W/DOCUSATE (SENOKOT S) TABLET PO SCH (09:00)
[2021-06-15] MEDS: ENOXAPARIN 30 MG/0.3 ML (LOVENOX) SYR SC SCH (09:31)
--- NOTE | 2021-06-15 12:31 | Progress Note ---
Subjective Date Seen by a Provider: Jun 15, 2021 Time Seen by a Provider: 11:00 Subjective/Events-last exam doing well. tolerating clear liquids. pain controlled. ambulating well. no fever/chills. Objective Exam Vital Signs Date Time Temp Pulse Resp B/P (MAP) Pulse Ox O2 Delivery O2 Flow Rate FiO2 06/15/21 09:00 Room Air 06/15/21 08:04 95 Nasal Cannula 2.00 06/15/21 07:50 37.0 80 17 131/79 (96) 94 Room Air 06/15/21 06:00 18 06/15/21 03:46 36.8 80 18 132/81 (98) 94 Nasal Cannula 2.00 06/14/21 23:47 36.6 83 18 141/82 (101) 94 Nasal Cannula 2.00 06/14/21 22:03 86 18 145/86 (105) 94 Nasal Cannula 2.00 06/14/21 21:40 93 Nasal Cannula 3.00 06/14/21 20:05 92 Nasal Cannula 2.00 06/14/21 20:04 35.9 72 20 137/83 (101) 92 Nasal Cannula 2.00 06/14/21 20:03 76 18 154/87 (109) 92 Nasal Cannula 2.00 06/14/21 20:00 18 06/14/21 18:25 Nasal Cannula 2 06/14/21 18:20 36.1 22 149/97 (114) 92 Nasal Cannula 2 06/14/21 18:15 Nasal Cannula 2 06/14/21 18:10 23 150/87 (108) 93 OxyMask 2 06/14/21 18:00 20 146/94 (111) 95 OxyMask 2 06/14/21 18:00 Nasal Cannula 2 06/14/21 17:50 20 148/90 (109) 94 OxyMask 4 06/14/21 17:45 20 149/91 (110) 95 OxyMask 6 06/14/21 17:39 36.1 20 148/96 (113) 97 OxyMask 8 06/14/21 17:39 OxyMask 8 06/14/21 12:50 36.3 80 18 133/97 (109) 96 Room Air I & O 06/15/21 06:59 Intake Total 2870 ml Output Total 1950 ml Balance 920 ml Capillary Refill : General Appearance: No Apparent Distress HEENT: PERRL/EOMI Neck: Full Range of Motion Respiratory: Chest Non Tender, Lungs Clear, Normal Breath Sounds Cardiovascular: Regular Rate, Rhythm Gastrointestinal: normal bowel sounds, soft, tenderness Extremity: Normal Capillary Refill Neurologic/Psychiatric: Alert, Oriented x3 Skin: Normal Color Lymphatic: No Adenopathy Results Lab Laboratory Tests 06/14/21 13:15: White Blood Count 5.4, Red Blood Count 5.12, Hemoglobin 15.5, Hematocrit 44, Mean Corpuscular Volume 86, Mean Corpuscular Hemoglobin 30, Mean Corpuscular Hemoglobin Concent 35, Red Cell Distribution Width 11.9, Platelet Count 203, Mean Platelet Volume 9.6, Immature Granulocyte % (Auto) 1, Neutrophils (%) (Auto) 57, Lymphocytes (%) (Auto) 28, Monocytes (%) (Auto) 10, Eosinophils (%) (Auto) 3, Basophils (%) (Auto) 1, Neutrophils # (Auto) 3.1, Lymphocytes # (Auto) 1.5, Monocytes # (Auto) 0.6, Eosinophils # (Auto) 0.2, Basophils # (Auto) 0.0, Immature Granulocyte # (Auto) 0.0 06/15/21 06:12: White Blood Count 8.9, Red Blood Count 4.73, Hemoglobin 14.1, Hematocrit 42, Mean Corpuscular Volume 89, Mean Corpuscular Hemoglobin 30, Mean Corpuscular Hemoglobin Concent 34, Red Cell Distribution Width 12.0, Platelet Count 207, Mean Platelet Volume 9.5 Microbiology 06/14/21 MRSA Screen - Final, Complete MRSA not isolated Assessment/Plan Assessment/Plan Assess & Plan/Chief Complaint s/p HH repair and zaida fundoplication. continue clear liquids 5 days. ambulate. home soon. MENDY DE LEON MD Jun 15, 2021 12:31
[2021-06-15] MEDS ORDERED: ONDANSETRON 4 MG/2 ML (SDV) Z0FRAN IVP PRN (13:45)
[2021-06-15] MEDS ORDERED: METOCLOPRAMIDE INJ 10 MG/2 ML (REGLAN) IVP PRN (13:45)
== END 2021-06-15 13:49 | disposition home or self-care (01) ==
LOC: SDC 12:44 → 4TH 18:30 → SDC 06-15 13:49
PROVIDERS: ATTEND Surgery
DX: K44.9 Diaphragmatic hernia without obstruction or gangrene (principal); I25.10 Atherosclerotic heart disease of native coronary artery without angina pectoris; I10 Essential (primary) hypertension; K21.9 Gastro-esophageal reflux disease without esophagitis; I25.2 Old myocardial infarction; E66.9 Obesity, unspecified; Z68.36 Body mass index [BMI] 36.0-36.9, adult; Z79.899 Other long term (current) drug therapy; Z85.840 Personal history of malignant neoplasm of eye
CPT/HCPCS: 36415; 85025; 85027; 87081; 94640; 94760

== ENCOUNTER 2021-07-15 18:12 | Emergency (ER) | payer BC ==
[~2021-07-15] VITALS: Ht 193 cm; Wt 136.0 kg
[~2021-07-15 18:12] MED LIST changes: -CLIN150C18 PO; +CLIN150C20 PO; -CLINDAMYCIN 600 MG/50 ML IVPB 50 ML IV NR; +HYDR118S10 PO; -LACTATED RINGERS 1,000 ML IV PRN
[2021-07-15] MEDS ORDERED: LACTATED RINGERS 1,000 ML IV STA (18:38)
[2021-07-15] MEDS ORDERED: FAMOTIDINE 20MG/2ML IV (PEPCID) IV STA (18:38)
[2021-07-15] MEDS ORDERED: fentaNYL INJ 100 MCG/2 ML AMP IVP STA (18:38)
[2021-07-15 18:44] LABS: BASOPHILS % (AUTO) 0 % (0-10); EOSINOPHILS # (AUTO) 0.1 10^3/uL (0.0-0.3); EOSINOPHILS % (AUTO) 2 % (0-10); HEMATOCRIT 52 % (40-54); HEMOGLOBIN 17.5 g/dL (13.3-17.7); LYMPHOCYTES # (AUTO) 1.1 10^3/uL (1.0-4.0); LYMPHOCYTES % (AUTO) 14 % (12-44); MEAN CORPUSCULAR HEMOGLOBIN 29 pg (25-34); MEAN CORPUSCULAR HGB CONC 34 g/dL (32-36); MEAN CORPUSCULAR VOLUME 87 fL (80-99); MEAN PLATELET VOLUME 9.3 fL (9.0-12.2); MONOCYTES # (AUTO) 0.9 10^3/uL (0.0-1.0); MONOCYTES % (AUTO) 12 % (0-12); NEUTROPHILS # (AUTO) 5.8 10^3/uL (1.8-7.8); NEUTROPHILS % (AUTO) 73 % (42-75); PLATELET COUNT 245 10^3/uL (130-400); WHITE BLOOD COUNT 8.1 10^3/uL (4.3-11.0)
[2021-07-15] MEDS ORDERED: ONDANSETRON 4 MG/2 ML (SDV) Z0FRAN IVP ONE (18:45)
[2021-07-15 18:53] LABS: ALBUMIN 4.1 GM/DL (3.2-4.5); POTASSIUM 4.1 MMOL/L (3.6-5.0)
[2021-07-15 18:54] LABS: CALCIUM 8.8 MG/DL (8.5-10.1)
[2021-07-15 18:59] LABS: CREATININE SERUM 0.87 MG/DL (0.60-1.30)
[2021-07-15] MEDS ORDERED: IOHEXOL 350 MG/ML 100 ML (OMNIPAQUE 350) VIAL IV ONE (19:30)
[2021-07-15] MEDS ORDERED: CATHETER FLUSH 10 ML SYR IV PRN (19:30)
[2021-07-15] MEDS ORDERED: NS 100 ML (IVPB) BAG IV ONE (19:30)
[2021-07-15] MEDS ORDERED: HOLD METFORMIN - RECEIVED CONTRAST 20 ML VIAL IV SCH (19:30)
--- NOTE | 2021-07-15 19:36 | ED GI ---
General Chief Complaint: Abdominal/GI Problems Stated Complaint: ESOPHAGEAL PAIN,S/P ESOPHAGEAL REATTACHMENT 2 WKS Nursing Triage Note: PT AMB TO ROOM 3 PT CO OF ABD PAIN, PT STATES HAS PAIN 05/15, STATES VOMITED TODAY. RECENTLY HAD LAP SARA. Source of Information: Patient Exam Limitations: No Limitations History of Present Illness Date Seen by Provider: Jul 15, 2021 Time Seen by Provider: 18:30 Initial Comments Here with report of mid abdominal/chest pain right in the epigastric region and radiating up. Recently had surgery due to hiatal hernia. He apparently had anterior wrap by Dr. Storm on June 14. 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 He has had problems with significant reflux disease and has had improvement after the procedure. He did just take a trip to [facility] for a week. Returned recently. Denies injury or concerns. States he tried to eat soft but admits to somewhat different diet. No fever or chills. He has recently been tested for Covid and is negative. He has also had vaccination. Timing/Duration: 24 Hours Severity/Quality: Moderate Location: Epigastric Radiation: RUQ, LUQ, Chest, Epigastric Activities at Onset: None Modifying Factors: Worsens With Eating, Worsens With Vomiting Associated Symptoms: No Back Pain; Chest Pain; No Fever/Chills; Heartburn, Nausea/Vomiting; No Shortness of Air, No Weakness Allergies and Home Medications Allergies Coded Allergies: Penicillins (Verified Allergy, Unknown, 07/17/20) aspirin (Verified Allergy, Unknown, 07/17/20) blueberry (Verified Allergy, Unknown, 06/14/21) Patient Home Medication List Home Medication List Reviewed: Yes Clindamycin HCl (Clindamycin HCl) 150 Mg Capsule, 150 MG PO QID, (Reported) Entered as Reported by: ANTONY CADENA on 06/07/21 1137 Hydrocodone/Acetaminophen (Hydrocodone-Acetamn 7.5-325/15) 118 Ml Solution, 15 ML PO Q4H PRN for PAIN-BREAKTHROUGH Prescribed by: MARSHALL LOPEZ on 06/14/21 1337 Hydrocodone/Acetaminophen (Hydrocodon-Acetamin 7.5-325/15 ML) 15 Ml Solution, 15 ML PO Q6H PRN for PAIN-MODERATE (5-7) Prescribed by: CHARLEY STEPHENS on 07/15/212013 Lisinopril (Lisinopril) 20 Mg Tablet, 20 MG PO DAILY, (Reported) Entered as Reported by: NOEL DE SANTIAGO on 07/17/20 112 Ondansetron HCl (Zofran) 4 Mg Tab, 4 MG PO PRN PRN for NAUSEA/VOMITING-1ST LINE, (Reported) Entered as Reported by: NOEL DE SANTIAGO on 07/17/20 1124 Pantoprazole Sodium (Protonix) 40 Mg Tablet.dr, 40 MG PO DAILY Prescribed by: MENDY STORM on 05/16/21 1303 Review of Systems Review of Systems Constitutional: see HPI; No chills, No fever EENTM: No Nose Pain, No Throat Pain Respiratory: Denies Cough, Denies Shortness of Air Cardiovascular: Chest Pain; Denies Edema Gastrointestinal: Abdominal Pain, Nausea Genitourinary: No Symptoms Reported Musculoskeletal: No back pain, No muscle pain Skin: no symptoms reported Psychiatric/Neurological: No Symptoms Reported All Other Systems Reviewed Negative Unless Noted: Yes Past Llmvypa-Kyqjgj-Tavivm Hx Patient Social History Tobacco Use?: No Substance use?: No Alcohol Use?: No Pt feels they are or have been: No Immunizations Up To Date First/Initial COVID19 Vaccinat: DECEMBER 2020 Second COVID19 Vaccination Donovan: BOTH VACCINES Seasonal Allergies Seasonal Allergies: Yes Past Medical History Surgery/Hospitalization HX: RECENT LAP SARA 06/14/21 Surgeries: Yes (CARDIAC CATH-NO INTERVENTION;LEFT EYE LASER SURGERY + AVASTIN INJ) Cardiac, Eye Surgery Respiratory: No Currently Using CPAP: No Currently Using BIPAP: No Cardiac: Yes (CARDIAC CATH-NO INTERVENTION; QUIT TAKING COREG FOR HTN > 10 YEARS AGO. 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 0.0oz. 126.265642dk; 36.00 BMI Method:Stated General Appearance: WD/WN, no apparent distress HEENT: PERRL/EOMI, pharynx normal Neck: full range of motion, supple Respiratory: lungs clear, normal breath sounds Cardiovascular: regular rate, rhythm, no murmur Gastrointestinal: soft, tenderness (Bilateral upper quadrants and epigastric with epigastric being greatest area of discomfort) Extremities: non-tender, normal inspection Back: normal inspection, no CVA tenderness, no vertebral tenderness Neurologic/Psychiatric: alert, oriented x 3 Skin: normal color, warm/dry Progress/Results/Core Measures Results/Orders Lab Results Laboratory Tests Test 07/15/21 18:35 Range/Units White Blood Count 8.1 4.3-11.0 10^3/uL Red Blood Count 5.98 H 4.30-5.52 10^6/uL Hemoglobin 17.5 13.3-17.7 g/dL Hematocrit 52 40-54 % Mean Corpuscular Volume 87 80-99 fL Mean Corpuscular Hemoglobin 29 25-34 pg Mean Corpuscular Hemoglobin Concent 34 32-36 g/dL Red Cell Distribution Width 12.1 10.0-14.5 % Platelet Count 245 130-400 10^3/uL Mean Platelet Volume 9.3 9.0-12.2 fL Immature Granulocyte % (Auto) 0 % Neutrophils (%) (Auto) 73 42-75 % Lymphocytes (%) (Auto) 14 12-44 % Monocytes (%) (Auto) 12 0-12 % Eosinophils (%) (Auto) 2 0-10 % Basophils (%) (Auto) 0 0-10 % Neutrophils # (Auto) 5.8 1.8-7.8 10^3/uL Lymphocytes # (Auto) 1.1 1.0-4.0 10^3/uL Monocytes # (Auto) 0.9 0.0-1.0 10^3/uL Eosinophils # (Auto) 0.1 0.0-0.3 10^3/uL Basophils # (Auto) 0.0 0.0-0.1 10^3/uL Immature Granulocyte # (Auto) 0.0 0.0-0.1 10^3/uL D-Dimer 0.51 H 0.00-0.49 UG/ML Sodium Level 136 135-145 MMOL/L Potassium Level 4.1 3.6-5.0 MMOL/L Chloride Level 106 98-107 MMOL/L Carbon Dioxide Level 17 L 21-32 MMOL/L Anion Gap 13 5-14 MMOL/L Blood Urea Nitrogen 9 7-18 MG/DL Creatinine 0.87 0.60-1.30 MG/DL Estimat Glomerular Filtration Rate 97 BUN/Creatinine Ratio 10 Glucose Level 187 H 70-105 MG/DL Calcium Level 8.8 8.5-10.1 MG/DL Corrected Calcium 8.7 8.5-10.1 MG/DL Total Bilirubin 1.0 0.1-1.0 MG/DL Aspartate Amino Transf (AST/SGOT) 20 5-34 U/L Alanine Aminotransferase (ALT/SGPT) 40 0-55 U/L Alkaline Phosphatase 115 40-136 U/L C-Reactive Protein High Sensitivity 0.88 H 0.00-0.50 MG/DL Total Protein 7.0 6.4-8.2 GM/DL Albumin 4.1 3.2-4.5 GM/DL My Orders Orders - CHARLEY STEPHENS MD Cbc With Automated Diff (07/15/21 18:38) Comprehensive Metabolic Panel (07/15/21 18:38) Hs C Reactive Protein (07/15/21 18:38) Fibrin Degradation Products (07/15/21 18:38) Ondansetron Injection (Zofran Injectio (07/15/21 18:45) Lactated Ringers (Lr 1000 Ml Iv Solution (07/15/21 18:38) Famotidine Injection (Pepcid Injection) (07/15/21 18:38) Ed Iv/Invasive Line Start (07/15/21 18:38) Fentanyl Inj (Sublimaze Injection) (07/15/21 18:38) Ct Chest/Abdomen/Pelvis W (07/15/21 19:11) Iohexol Injection (Omnipaque 350 Mg/Ml 1 (07/15/21 19:30) Received Contrast (Hold Metformin- Contr (07/15/21 19:30) Sodium Chloride Flush (Catheter Flush Sy (07/15/21 19:30) Ns (Ivpb) (Sodium Chloride 0.9% Ivpb Bag (07/15/21 19:30) Medications Given in ED Current Medications Medications Dose Ordered Sig/Sammi Route Start Time Stop Time Status Last Admin Dose Admin Iohexol 100 ml ONCE ONCE IV 07/15/21 19:30 07/15/21 19:31 DC 07/15/21 19:46 100 ML Ondansetron HCl 4 mg ONCE ONCE IVP 07/15/21 18:45 07/15/21 18:46 DC 07/15/21 18:55 4 MG Sodium Chloride 10 ml NEEDED PRN IV 07/15/21 19:30 07/15/21 19:46 10 ML Sodium Chloride 100 ml ONCE ONCE IV 07/15/21 19:30 07/15/21 19:31 DC 07/15/21 19:46 80 ML Vital Signs/I&O 07/15/21 18:25 Temp 35.2 Pulse 85 Resp 18 B/P (MAP) 126/84 (98) Pulse Ox 97 Blood Pressure Mean: 98 Progress Progress Note : Progress Note Seen and evaluated. IV, labs, Zofran 4 mg IV, Pepcid 20 mg IV and normal saline 1 L bolus ordered. Fentanyl 75 mcg IV ordered. Monitor patient. 1930: I have discussed the case with Dr. Colin, on-call surgeon. We will go ahead and get CT chest, abdomen and pelvis given his history of metastatic disease and with the abdominal pain concerns. Also due to his recent surgical history, we will give oral contrast prior to CT scan. He is overall doing better right now. 2015: Overall much improved. CT scan does not show any concerning findings and in fact the previously noted nodules are also absent. This was discussed with the patient. Discharged home with return precautions. Patient and family verbalized understanding instructions and agreement with plan. We are waiting on completion of IV fluid to discharge. Diagnostic Imaging Diagonstic Imaging: CT Plain Films/CT/US/NM/MRI: abdomen, pelvis Comments [facility] [place], [place] NAME: ASHU CUNHA MED REC#: [id number] PT STATUS: REG ER : 1980 PHYSICIAN: CHARLEY STEPHENS MD ADMIT DATE: 07/15/21/ER Draft Date of Exam:07/15/21 CT CHEST/ABDOMEN/PELVIS W PROCEDURE: CT chest, abdomen, and pelvis with contrast. TECHNIQUE: Multiple contiguous axial images were obtained through the chest, abdomen, and pelvis after the administration of intravenous contrast. Auto Exposure Controls were utilized during the CT exam to meet ALARA standards for radiation dose reduction. INDICATION: Hiatal hernia. COMPARISON: Prior examination from 04/15/2021. FINDINGS: There are no discrete pulmonary nodules, masses or infiltrates. There is no pleural or pericardial fluid. There is no pneumothorax. There is no pathologically enlarged adenopathy in the chest. Thyroid is normal. The thoracic aorta is normal in caliber. Heart size is normal. There is fatty infiltration of the liver. Gallbladder is unremarkable. No biliary ductal dilatation. Spleen is normal. The pancreas, adrenal glands and kidneys are unremarkable. The aorta is nonaneurysmal. Bowel gas pattern is nonspecific. There is a small fat-containing periumbilical hernia. No free air. There is no ascites. There are no focal inflammatory changes. There is no pelvic mass, adenopathy or free fluid. There are minimal degenerative changes in the spine. IMPRESSION: 1. Fatty infiltration of the liver. 2. No acute abnormality in the chest, abdomen or pelvis. Dictated on workstation # [id number] Dict: 07/15/211999 Trans: 07/15/212007 [facility] [id number] Interpreted by: TERRELL CUNHA MD Electronically signed by: Departure Impression Primary Impression: Epigastric pain Disposition: HOME, SELF-CARE Condition: Stable Departure-Patient Inst. Decision time for Depature: 20:15 Referrals: MENDY STORM MD, DANIEL J MD (PCP/Family) Primary Care Physician Patient Instructions: Severe Abdominal Pain, Adult (DC) Add. Discharge Instructions: All discharge instructions reviewed with patient and/or family. Voiced understanding. Call Dr. Storm's office for recheck and further evaluation. Reinitiate your Carafate this week and continue that until you have talked with Dr. Storm. You may take pain medicine as directed. Continue your antacid treatment as well. Return for worse pain, fever, vomiting, weakness, breathing problems or other concerns as needed. You should use clear to light diet over the next several days and then advance as tolerated per his previous instructions. Scripts Hydrocodone/Acetaminophen (Hydrocodon-Acetamin 7.5-325/15 ML) 15 Ml Solution 15 ML PO Q6H PRN for PAIN-MODERATE (5-7) for 7 Days, #150 ML 0 Refills Prov: CHARLEY STEPHENS MD 07/15/21 Copy Copies To 1: MENDY STORM MD, TIMOTHY D MD Jul 15, 2021 19:36
--- NOTE | 2021-07-15 20:09 | Diagnostic Imaging Report ---
PROCEDURE: CT chest, abdomen, and pelvis with contrast. TECHNIQUE: Multiple contiguous axial images were obtained through the chest, abdomen, and pelvis after the administration of intravenous contrast. Auto Exposure Controls were utilized during the CT exam to meet ALARA standards for radiation dose reduction. INDICATION: Hiatal hernia. COMPARISON: Prior examination from 04/15/2021. FINDINGS: There are no discrete pulmonary nodules, masses or infiltrates. There is no pleural or pericardial fluid. There is no pneumothorax. There is no pathologically enlarged adenopathy in the chest. Thyroid is normal. The thoracic aorta is normal in caliber. Heart size is normal. There is fatty infiltration of the liver. Gallbladder is unremarkable. No biliary ductal dilatation. Spleen is normal. The pancreas, adrenal glands and kidneys are unremarkable. The aorta is nonaneurysmal. Bowel gas pattern is nonspecific. There is a small fat-containing periumbilical hernia. No free air. There is no ascites. There are no focal inflammatory changes. There is no pelvic mass, adenopathy or free fluid. There are minimal degenerative changes in the spine. IMPRESSION: 1. Fatty infiltration of the liver. 2. No acute abnormality in the chest, abdomen or pelvis. Dictated by: Dictated on workstation # [id number]
[2021-07-15] MEDS ORDERED: HYDR15SO8 PO (20:13)
[2021-07-15 20:48] VITALS: BP 114/81
== END 2021-07-15 20:49 | disposition home or self-care (01) ==
LOC: EDUNIT# 18:12 → ER 18:14
DX: C69.92 Malignant neoplasm of unspecified site of left eye (principal); R10.13 Epigastric pain; I25.2 Old myocardial infarction; I10 Essential (primary) hypertension; K21.9 Gastro-esophageal reflux disease without esophagitis; Z79.899 Other long term (current) drug therapy
CPT/HCPCS: 36415; 71260; 74177; 80053; 85025; 85379; 86141

== ENCOUNTER 2021-07-18 20:32 | Observation (INO) | payer BC ==
[~2021-07-18] VITALS: Ht 193 cm; Wt 145.0 kg
[~2021-07-18 20:32] MED LIST changes: +HYDR15SO8 PO
[2021-07-18] MEDS ORDERED: LACTATED RINGERS 1,000 ML IV ONE ×2 (21:00→22:30)
[2021-07-18] MEDS ORDERED: ONDANSETRON 4 MG/2 ML (SDV) Z0FRAN IVP ONE ×2 (21:00→21:15)
[2021-07-18 21:14] LABS: BASOPHILS # (AUTO) 0.1 10^3/uL (0.0-0.1); BASOPHILS % (AUTO) 1 % (0-10); EOSINOPHILS # (AUTO) 0.2 10^3/uL (0.0-0.3); EOSINOPHILS % (AUTO) 2 % (0-10); HEMATOCRIT 55 % (40-54); HEMOGLOBIN 19.5 g/dL (13.3-17.7); LYMPHOCYTES # (AUTO) 2.1 10^3/uL (1.0-4.0); LYMPHOCYTES % (AUTO) 21 % (12-44); MEAN CORPUSCULAR HEMOGLOBIN 29 pg (25-34); MEAN CORPUSCULAR HGB CONC 35 g/dL (32-36); MEAN CORPUSCULAR VOLUME 82 fL (80-99); MEAN PLATELET VOLUME 9.1 fL (9.0-12.2); MONOCYTES # (AUTO) 1.2 10^3/uL (0.0-1.0); MONOCYTES % (AUTO) 12 % (0-12); NEUTROPHILS # (AUTO) 6.3 10^3/uL (1.8-7.8); NEUTROPHILS % (AUTO) 63 % (42-75); PLATELET COUNT 295 10^3/uL (130-400); WHITE BLOOD COUNT 10.1 10^3/uL (4.3-11.0)
[2021-07-18] MEDS ORDERED: PANTOPRAZOLE 40 MG (PROTONIX) VIAL IV ONE (21:15)
[2021-07-18 21:46] LABS: ALBUMIN 4.3 GM/DL (3.2-4.5); BILIRUBIN,TOTAL 0.6 MG/DL (0.1-1.0); CALCIUM 9.3 MG/DL (8.5-10.1); CREATININE SERUM 1.31 MG/DL (0.60-1.30); MAGNESIUM 1.5 MG/DL (1.6-2.4); POTASSIUM 3.4 MMOL/L (3.6-5.0); TOTAL PROTEIN 7.5 GM/DL (6.4-8.2)
[2021-07-18 22:05] LABS: ERYTHROCYTE SEDIMENTATION RATE 1 MM/HR (0-15)
[2021-07-18 22:31] VITALS: BP 130/103
--- NOTE | 2021-07-18 22:31 | ED GI ---
General Chief Complaint: Abdominal/GI Problems Stated Complaint: ABD PAIN / VOMITING / DIARRHEA / WEAKNESS Source of Information: Patient History of Present Illness Date Seen by Provider: Jul 18, 2021 Time Seen by Provider: 20:47 Initial Comments PT ARRIVES VIA POV FROM HOME C/O NAUSEA/VOMITING/DIARRHEA AND ABDOMINAL PAIN SINCE Friday07/15/21 ABDOMINAL PAIN IS EPIGASTRIC AND LEFT UPPER QUADRANT PT HAS HAD DIARRHEA >10 < 20 TIMES A DAY SINCE FRIDAY-NO BLACK/BLOODY/TARRY STOOLS PT HAS HAD MOSTLY DRY HEAVES, VERY LITTLE EMESIS--HAS BEEN DRY HEAVING SEVERAL TIMES A DAY EVERY DAY PT HAD HIATAL HERNIA REPAIR [address] DE LEON ON 06/14/21 PT THEN WENT TO [facility] FOR VACATION ABOUT 2 WEEKS AGO, AND JUST GOT BACK LESS THAN A WEEK AGO. ADMITS TO EATING DIFFERENT FOODS THAN NORMAL WHILE ON VACATION, AND DID NOT STICK TO SUGGESTED POST-OP DIET STATES HE HAS NOT BEEN ABLE TO EAT SINCE FRIDAY, BUT IS DRINKING WATER--NOT REALLY DRINKING ANYTHING ELSE NO FEVER AT ANY TIME VOIDED ABOUT 2 HOURS AGO WAS SEEN HERE ON Friday07/15/21 FOR THIS PROBLEM--WORK UP WAS BENIGN. GIVEN RX FOR HYDROCODONE PT HAS FOLLOW UP APPOINTMENT WITH DR. DE LEON ON Friday07/20/21 PT ALSO WITH KNOWN METASTATIC OCULAR MELANOMA OF LEFT EYE ( PT STATES "IT'S SPREAD EVERYWHERE")--PT HAS COMPLETED RADIATION, FOLLOWED BY CHEMO, WHICH HE COMPLETED IN APRIL OF THIS YEAR. ALL TREATMENT HAS BEEN IN [place]. PT IS FULLY VACCINATED AGAINST COVID-19--LAST SHOT 12/2020 PT HAD NEGATIVE COVID TEST LAST WEEK TO GET [place] FROM [facility] PCP: DR. GILLIS SURGEON: DR. DE LEON Allergies and Home Medications Allergies Coded Allergies: Penicillins (Verified Allergy, Unknown, 07/17/20) aspirin (Verified Allergy, Unknown, 07/17/20) blueberry (Verified Allergy, Unknown, 06/14/21) Patient Home Medication List Home Medication List Reviewed: Yes Clindamycin HCl (Clindamycin HCl) 150 Mg Capsule, 150 MG PO QID, (Reported) Entered as Reported by: ANTONY CADENA on 06/07/21 1137 Hydrocodone/Acetaminophen (Hydrocodone-Acetamn 7.5-325/15) 118 Ml Solution, 15 ML PO Q4H PRN for PAIN-BREAKTHROUGH Prescribed by: MARSHALL LOPEZ on 06/14/21 1337 Hydrocodone/Acetaminophen (Hydrocodon-Acetamin 7.5-325/15 ML) 15 Ml Solution, 15 ML PO Q6H PRN for PAIN-MODERATE (5-7) Prescribed by: CHARLEY STEPHENS on 07/15/212013 Lisinopril (Lisinopril) 20 Mg Tablet, 20 MG PO DAILY, (Reported) Entered as Reported by: NOEL DE SANTIAGO on 07/17/20 1124 Ondansetron HCl (Zofran) 4 Mg Tab, 4 MG PO PRN PRN for NAUSEA/VOMITING-1ST LINE, (Reported) Entered as Reported by: NOEL DE SANTIAGO on 07/17/20 1124 Pantoprazole Sodium (Protonix) 40 Mg Tablet.dr, 40 MG PO DAILY Prescribed by: MENDY DE LEON on 05/16/21 1303 Review of Systems Review of Systems Constitutional: see HPI; No chills, No diaphoresis, No dizziness, No fever; malaise, weakness EENTM: No Symptoms Reported Respiratory: No Symptoms Reported Cardiovascular: No Symptoms Reported Gastrointestinal: See HPI, Abdominal Pain, Diarrhea, Nausea, Poor Appetite; Den ies Poor Fluid Intake; Vomiting Genitourinary: No Symptoms Reported Musculoskeletal: no symptoms reported Skin: no symptoms reported Psychiatric/Neurological: No Symptoms Reported Endocrine: No Symptoms Reported Hematologic/Lymphatic: No Symptoms Reported Past Wynnijy-Tqapxf-Vdtxua Hx Patient Social History Tobacco Use?: No Smoking Status: Never a Smoker Use of E-Cig and/or Vaping dev: No Substance use?: No Alcohol Use?: No Immunizations Up To Date First/Initial COVID19 Vaccinat: 12/15/2020 Second COVID19 Vaccination Donovan: BOTH VACCINES Seasonal Allergies Seasonal Allergies: Yes Past Medical History Surgery/Hospitalization HX: RECENT LAP IRVIN FUNDOPLICATION 06/14/21 OCULAR MELANOMA - [place] W CHEMO AND RADIATION Surgeries: Yes (CARDIAC CATH-NO INTERVENTION;LEFT EYE LASER SURGERY + AVASTIN INJ) Abdominal, Cardiac, Eye Surgery Respiratory: No Currently Using CPAP: No Currently Using BIPAP: No Cardiac: Yes (CARDIAC CATH-NO INTERVENTION; QUIT TAKING COREG FOR HTN > 10 YEARS AGO. 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) Cancer: Yes (UVEAL MELANOMA OF L EYE-DX 12/2019--S/P RADIATION,AVASTIN INJECTIONS,LASER) Did You Recieve Any Treatments: Yes What Type of Treatment Did You: Chemotherapy, Radiation LEFT EYE OCULAR MELANOMA--HAS COMPLETED RADIATION AND THEN COMPLETED CHEMO 04/2021 PT REPORTS HAS BEEN TOLD THAT IT IS METASTATIC "EVERYWHERE" ON 07/18/21 ALL TREATMENT HAS BEEN IN [place] Psychosocial: No Integumentary: No Blood Disorders: No Adverse Reaction/Blood Tranf: No (N/A) Family Medical History No Pertinent Family Hx Physical Exam Vital Signs Vital Signs - First Documented 07/18/21 20:45 Temp 36.6 Pulse 103 Resp 20 B/P (MAP) 123/99 (107) Pulse Ox 99 O2 Delivery Room Air Capillary Refill : Height/Weight/BMI Height: 6'3.00" Weight: 278lbs. 0.0oz. [id number]; 36.00 BMI Method:Stated General Appearance: WD/WN, no apparent distress, obese, other (KEEPS EYES CLOSED) Neck: normal inspection Respiratory: normal breath sounds, no respiratory distress, no accessory muscle use Cardiovascular: regular rate, rhythm, no murmur Gastrointestinal: normal bowel sounds, soft, no organomegaly; No distended, No guarding, No rebound; tenderness (MARKED EPIGASTRIC AND LEFT UPPER QUADRANT TENDERNESS); No hernia, No mass; other (SURGICAL SITES WELL HEALED, NO SIGNS OF INFECTION) Extremities: normal inspection Back: normal inspection, no CVA tenderness Neurologic/Psychiatric: resident care assistant II-XII nml as tested, no motor/sensory deficits, alert, normal mood/affect, oriented x 3 Skin: normal color, warm/dry Focused Exam Lactate Level 07/18/21 21:35: Lactic Acid Level 2.21*H Lactic Acid Level Laboratory Tests Test 07/18/21 21:35 Lactic Acid Level 2.21 MMOL/L (0.50-2.00) *H Progress/Results/Core Measures Results/Orders Lab Results Laboratory Tests Test 07/18/21 20:55 07/18/21 21:30 07/18/21 21:35 07/18/21 23:07 Range/Units White Blood Count 10.1 4.3-11.0 10^3/uL Red Blood Count 6.73 H 4.30-5.52 10^6/uL Hemoglobin 19.5 H 13.3-17.7 g/dL Hematocrit 55 H 40-54 % Mean Corpuscular Volume 82 80-99 fL Mean Corpuscular Hemoglobin 29 25-34 pg Mean Corpuscular Hemoglobin Concent 35 32-36 g/dL Red Cell Distribution Width 12.0 10.0-14.5 % Platelet Count 295 130-400 10^3/uL Mean Platelet Volume 9.1 9.0-12.2 fL Immature Granulocyte % (Auto) 2 % Neutrophils (%) (Auto) 63 42-75 % Lymphocytes (%) (Auto) 21 12-44 % Monocytes (%) (Auto) 12 0-12 % Eosinophils (%) (Auto) 2 0-10 % Basophils (%) (Auto) 1 0-10 % Neutrophils # (Auto) 6.3 1.8-7.8 10^3/uL Lymphocytes # (Auto) 2.1 1.0-4.0 10^3/uL Monocytes # (Auto) 1.2 H 0.0-1.0 10^3/uL Eosinophils # (Auto) 0.2 0.0-0.3 10^3/uL Basophils # (Auto) 0.1 0.0-0.1 10^3/uL Immature Granulocyte # (Auto) 0.2 H 0.0-0.1 10^3/uL Erythrocyte Sedimentation Rate 1 0-15 MM/HR Sodium Level 133 L 135-145 MMOL/L Potassium Level 3.4 L 3.6-5.0 MMOL/L Chloride Level 101 98-107 MMOL/L Carbon Dioxide Level 14 L 21-32 MMOL/L Anion Gap 18 H 5-14 MMOL/L Blood Urea Nitrogen 15 7-18 MG/DL Creatinine 1.31 H 0.60-1.30 MG/DL Estimat Glomerular Filtration Rate 61 BUN/Creatinine Ratio 11 Glucose Level 194 H 70-105 MG/DL Calcium Level 9.3 8.5-10.1 MG/DL Corrected Calcium 9.1 8.5-10.1 MG/DL Magnesium Level 1.5 L 1.6-2.4 MG/DL Total Bilirubin 0.6 0.1-1.0 MG/DL Aspartate Amino Transf (AST/SGOT) 14 5-34 U/L Alanine Aminotransferase (ALT/SGPT) 24 0-55 U/L Alkaline Phosphatase 114 40-136 U/L Lactate Dehydrogenase 193 125-220 U/L C-Reactive Protein High Sensitivity 1.87 H 0.00-0.50 MG/DL Total Protein 7.5 6.4-8.2 GM/DL Albumin 4.3 3.2-4.5 GM/DL Amylase Level 19 L 25-125 U/L Lipase 6 L 8-78 U/L Procalcitonin 0.11 H <0.10 NG/ML SARS-CoV-2 RNA (RT-PCR) Not Detected Not Detecte Stool Occult Blood Immunoassay POSITIVE H NEGATIVE Lactic Acid Level 2.21 *H 0.50-2.00 MMOL/L Urine Color DARK YELLOW Urine Clarity SL CLOUDY Urine pH 6.5 5-9 Urine Specific [place] 1.010 L 1.016-1.022 Urine Protein 1+ H NEGATIVE Urine Glucose (UA) NEGATIVE NEGATIVE Urine Ketones 1+ H NEGATIVE Urine Nitrite NEGATIVE NEGATIVE Urine Bilirubin 2+ H NEGATIVE Urine Urobilinogen 0.2 < = 1.0 MG/DL Urine Leukocyte Esterase NEGATIVE NEGATIVE Urine RBC (Auto) TRACE-I H NEGATIVE Urine RBC RARE /HPF Urine WBC 0-2 /HPF Urine Squamous Epithelial Cells RARE /HPF Urine Crystals NONE /LPF Urine Bacteria TRACE /HPF Urine Casts PRESENT /LPF Urine Hyaline Casts 5-10 H /LPF Urine Mucus SMALL H /LPF Urine Culture Indicated NO Urine Opiates Screen POSITIVE H NEGATIVE Urine Oxycodone Screen NEGATIVE NEGATIVE Urine Methadone Screen NEGATIVE NEGATIVE Urine Propoxyphene Screen NEGATIVE NEGATIVE Urine Barbiturates Screen NEGATIVE NEGATIVE Ur Tricyclic Antidepressants Screen NEGATIVE NEGATIVE Urine Phencyclidine Screen NEGATIVE NEGATIVE Urine Amphetamines Screen NEGATIVE NEGATIVE Urine Methamphetamines Screen NEGATIVE NEGATIVE Urine Benzodiazepines Screen NEGATIVE NEGATIVE Urine Cocaine Screen NEGATIVE NEGATIVE Urine Cannabinoids Screen NEGATIVE NEGATIVE My Orders Orders - JUAN CARLOS LAWSON DO Ed Iv/Invasive Line Start (07/18/21 20:46) Monitor-Rhythm Ecg Trace Only (07/18/21 20:46) Orthostatic Vital Signs (Adult (07/18/21 20:46) Amylase (07/18/21 20:46) Cbc With Automated Diff (07/18/21 20:46) Comprehensive Metabolic Panel (07/18/21 20:46) Hs C Reactive Protein (07/18/21 20:46) Drug Screen Stat (Urine) (07/18/21 20:46) Lactic Acid Analyzer (07/18/21 20:46) Lipase (07/18/21 20:46) Magnesium (07/18/21 20:46) Procalcitonin (Pct) (07/18/21 20:46) Ua Culture If Indicated (07/18/21 20:46) Erythrocyte Sedimentation Rate (07/18/21 20:46) Ed Iv/Invasive Line Start (07/18/21 20:46) Lactated Ringers (Lr 1000 Ml Iv Solution (07/18/21 21:00) Ondansetron Injection (Zofran Injectio (07/18/21 21:00) LDH (07/18/21 20:46) Chest 1 View, Ap/Pa Only (07/18/21 20:46) Covid 19 Inhouse Test (07/18/21 20:46) Blood Culture (07/18/21 20:48) Vital Signs Adult Sepsis Patie Q15M (07/18/21 20:48) Remove Rings In Anticipation O (07/18/21 20:48) Ondansetron Injection (Zofran Injectio (07/18/21 21:15) Ed Iv/Invasive Line Start (07/18/21 21:02) Pantoprazole Injection (Protonix Injecti (07/18/21 21:15) Stool Culture (07/18/21 21:47) Occult Blood Stool (07/18/21 21:47) Parasite Scrn Stool Giard Cryp (07/18/21 21:47) C Difficile Ag + Toxin A/B. (07/18/21 21:47) Fecal Wbc (07/18/21 21:47) Isolation Central Supply Req (07/18/21 21:47) Ct Chest/Abdomen/Pelvis W (07/18/21 21:49) Ed Iv/Invasive Line Start (07/18/21 22:23) Lactated Ringers (Lr 1000 Ml Iv Solution (07/18/21 22:30) Iohexol Injection (Omnipaque 350 Mg/Ml 1 (07/18/21 23:30) Received Contrast (Hold Metformin- Contr (07/18/21 23:30) Ns (Ivpb) (Sodium Chloride 0.9% Ivpb Bag (07/18/21 23:30) Medications Given in ED Current Medications Medications Dose Ordered Sig/Sammi Route Start Time Stop Time Status Last Admin Dose Admin Iohexol 75 ml ONCE ONCE IV 07/18/21 23:30 07/18/21 23:32 DC 07/18/21 23:21 75 ML Lactated Ringer's 1,000 ml @ 0 mls/hr Q0M ONCE IV 07/18/21 21:00 07/18/21 21:01 DC 07/18/21 21:33 0 MLS/HR Lactated Ringer's 1,000 ml @ 0 mls/hr Q0M ONCE IV 07/18/21 22:30 07/18/21 22:31 DC 07/18/21 22:44 0 MLS/HR Ondansetron HCl 8 mg ONCE ONCE IVP 07/18/21 21:15 07/18/21 21:16 DC 07/18/21 21:33 8 MG Pantoprazole 40 mg ONCE ONCE IV 07/18/21 21:15 07/18/21 21:16 DC 07/18/21 21:33 40 MG Sodium Chloride 80 ml ONCE ONCE IV 07/18/21 23:30 07/18/21 23:32 DC 07/18/21 23:21 80 ML Vital Signs/I&O 07/18/21 07/18/21 20:45 22:32 Temp 36.6 Pulse 103 92 100 117 Resp 20 B/P (MAP) 123/99 (107) 130/103 (112) 132/100 (111) 121/99 (106) Pulse Ox 99 O2 Delivery Room Air 07/19/21 00:00 Intake Total 1000 ml Balance 1000 ml Progress Progress Note : Progress Note PLACED IN ISOLATION ROOM PPE WORN AT ALL TIMES COVID-19 TESTING PERFORMED LATER REMOVED FROM ISOLATION STATUS AFTER NEGATIVE COVID-19 TEST AND PT IS FULLY VACCINATED GIVEN IV FLUIDS AND ZOFRAN WITH MUCH IMPROVEMENT IN NAUSEA PT DID HAVE ONE DIARRHEA STOOL--SENT TO LAB FOR STOOL STUDIES. HEMOCCULT + NO DETERIORATION IN PT'S CONDITION VITALS STABLE Diagnostic Imaging Comments CXR-- CT CHEST/ABDOMEN/PELVIS--PER RADIOLOGIST REPORT AT 1891 FINDINGS: There are no discrete pulmonary nodules, masses or infiltrates. There is no pleural or pericardial fluid. There is no pneumothorax. Thoracic aorta is normal in caliber. There is no pathologically enlarged adenopathy in the chest. There is fatty infiltration of liver. Gallbladder is unremarkable. There is no biliary ductal dilatation. Spleen is normal. The pancreas, adrenal glands and kidneys are unremarkable. The aorta is nonaneurysmal. The bowel gas pattern is nonspecific. There is no free air. There is no ascites. There are no focal inflammatory changes. IMPRESSION: No acute cardiopulmonary abnormality. Fatty infiltration liver. No other acute abnormality in the abdomen or pelvis. Reviewed: Reviewed by [facility] Departure Communication (Admissions) 0023--SPOKE WITH DR. DE LEON, ACCEPTS PT FOR ADMIT. Impression Primary Impression: Abdominal pain Additional Impressions: Nausea vomiting and diarrhea Dehydration HEMOCCULT POSITIVE STOOL RECENT HIATAL HERNIA REPAIR Recent foreign travel Recent travel on aircraft At risk for infectious disease due to recent foreign travel Disposition: ADMITTED INPATIENT Condition: Improved Admissions Decision to Admit Reason: Admit from ER (General) Decision to Admit/Date: Jul 18, 2021 Time/Decision to Admit Time: 23:55 Departure-Patient Inst. Referrals: SHANELLE GILLIS MD (PCP/Family) Primary Care Physician JUAN CARLOS LAWSON DO Jul 18, 2021 22:31
[2021-07-18 22:32] VITALS: BP_SYST 121; BP_SYST 130; BP_SYST 132; BP_DIAS 100; BP_DIAS 103; BP_DIAS 99
[2021-07-18 23:22] LABS: CLARITY,URINE SL CLOUDY; GLUCOSE, URINE (UA) NEGATIVE (NEGATIVE); KETONES,URINE 1+ (NEGATIVE); LEUKOCYTE ESTERASE ,URINE NEGATIVE (NEGATIVE); NITRITE,URINE NEGATIVE (NEGATIVE); PH,URINE 6.5 (5-9); PROTEIN,URINE 1+ (NEGATIVE)
[2021-07-18 23:25] LABS: COLOR,URINE DARK YELLOW
[2021-07-18 23:26] LABS: BILIRUBIN,URINE 2+ (NEGATIVE)
[2021-07-18] MEDS ORDERED: IOHEXOL 350 MG/ML 100 ML (OMNIPAQUE 350) VIAL IV ONE (23:30)
[2021-07-18] MEDS ORDERED: HOLD METFORMIN - RECEIVED CONTRAST 20 ML VIAL IV SCH (23:30)
[2021-07-18] MEDS ORDERED: NS 100 ML (IVPB) BAG IV ONE (23:30)
[2021-07-18 23:31] LABS: BACTERIA,URINE TRACE /HPF; RBC,URINE RARE /HPF; SQUAMOUS EPITHELIAL CELL,UR RARE /HPF; WBC,URINE 0-2 /HPF
[2021-07-18 23:34] LABS: AMPHETAMINE SCREEN, URINE NEGATIVE (NEGATIVE); BARBITURATE SCREEN URINE NEGATIVE (NEGATIVE); BENZODIAZEPINES SCREEN URINE NEGATIVE (NEGATIVE); CANNABINOID SCREEN, URINE NEGATIVE (NEGATIVE); COCAINE SCREEN URINE NEGATIVE (NEGATIVE); METHADONE STAT NEGATIVE (NEGATIVE); METHAMPHETAMINE SCREEN URINE S NEGATIVE (NEGATIVE); OPIATE SCREEN URINE POSITIVE (NEGATIVE); OXYCODONE STAT NEGATIVE (NEGATIVE); PROPOXYPHENE STAT NEGATIVE (NEGATIVE); TRICYCLIC ANTIDEPRESSANTS SCRE NEGATIVE (NEGATIVE)
--- NOTE | 2021-07-18 23:50 | Diagnostic Imaging Report ---
PROCEDURE: CT chest, abdomen, and pelvis with contrast. TECHNIQUE: Multiple contiguous axial images were obtained through the chest, abdomen, and pelvis after the administration of intravenous contrast. Auto Exposure Controls were utilized during the CT exam to meet ALARA standards for radiation dose reduction. INDICATION: Abdominal pain. Comparison made with prior examination 07/15/2021 FINDINGS: There are no discrete pulmonary nodules, masses or infiltrates. There is no pleural or pericardial fluid. There is no pneumothorax. Thoracic aorta is normal in caliber. There is no pathologically enlarged adenopathy in the chest. There is fatty infiltration of liver. Gallbladder is unremarkable. There is no biliary ductal dilatation. Spleen is normal. The pancreas, adrenal glands and kidneys are unremarkable. The aorta is nonaneurysmal. The bowel gas pattern is nonspecific. There is no free air. There is no ascites. There are no focal inflammatory changes. IMPRESSION: No acute cardiopulmonary abnormality. Fatty infiltration liver. No other acute abnormality in the abdomen or pelvis. Dictated by: Dictated on workstation # [id number]
[2021-07-19 01:01] VITALS: BP 138/100
[2021-07-19] MEDS ORDERED: fentaNYL INJ 100 MCG/2 ML AMP IV PRN (01:15)
[2021-07-19] MEDS: D5 1/2 NS W/KCL 20 MEQ/L 1,000 ML IV SCH ×3 (01:24→14:40)
[2021-07-19 05:00] VITALS: BP 132/89
[2021-07-19 06:34] LABS: BASOPHILS # (AUTO) 0.1 10^3/uL (0.0-0.1); BASOPHILS % (AUTO) 1 % (0-10); EOSINOPHILS # (AUTO) 0.2 10^3/uL (0.0-0.3); EOSINOPHILS % (AUTO) 3 % (0-10); HEMATOCRIT 50 % (40-54); HEMOGLOBIN 17.4 g/dL (13.3-17.7); LYMPHOCYTES # (AUTO) 1.7 10^3/uL (1.0-4.0); LYMPHOCYTES % (AUTO) 20 % (12-44); MEAN CORPUSCULAR HEMOGLOBIN 29 pg (25-34); MEAN CORPUSCULAR HGB CONC 35 g/dL (32-36); MEAN CORPUSCULAR VOLUME 84 fL (80-99); MEAN PLATELET VOLUME 9.2 fL (9.0-12.2); MONOCYTES % (AUTO) 12 % (0-12); NEUTROPHILS # (AUTO) 5.5 10^3/uL (1.8-7.8); NEUTROPHILS % (AUTO) 64 % (42-75); PLATELET COUNT 225 10^3/uL (130-400); WHITE BLOOD COUNT 8.7 10^3/uL (4.3-11.0)
[2021-07-19 06:52] LABS: CALCIUM 8.3 MG/DL (8.5-10.1); CREATININE SERUM 0.88 MG/DL (0.60-1.30); POTASSIUM 3.3 MMOL/L (3.6-5.0); SMEAR SCAN COMMENT YES
--- NOTE | 2021-07-19 06:56 | Diagnostic Imaging Report ---
Indication: Chest pain Portable chest 10:59 PM Heart size and pulmonary vascularity are normal. Lungs are clear. There are no effusions or pneumothoraces. IMPRESSION: Negative chest. Dictated by: Dictated on workstation # [id number]
[2021-07-19 08:11] VITALS: BP 129/80
[2021-07-19] MEDS ORDERED: PANTOPRAZOLE 40 MG (PROTONIX) VIAL IV SCH (09:00)
[2021-07-19] MEDS: HYDROcodone/APAP 7.5 MG/325 MG (LORTAB, LORCET PLUS) TABLET PO PRN (11:20)
[2021-07-19] MEDS ORDERED: PANT40TA52 PO (11:25)
[2021-07-19] MEDS ORDERED: ACET-2267 PO (11:25)
[2021-07-19] MEDS ORDERED: HYDR118S10 PO (11:25)
[2021-07-19 11:49] VITALS: BP 128/90
[2021-07-19] MEDS: LOPERAMIDE 2 MG (IMODIUM) TABLET PO PRN ×2 (15:47→21:50)
[2021-07-19 16:08] VITALS: BP 129/90
[2021-07-19] MEDS ORDERED: PROMETHAZINE INJ 25 MG/ML (PHENERGAN) AMP IVP PRN (16:15)
[2021-07-19] MEDS ORDERED: METOCLOPRAMIDE INJ 10 MG/2 ML (REGLAN) IVP PRN (16:15)
--- NOTE | 2021-07-19 16:24 | HISTORY AND PHYSICAL ---
DATE OF SERVICE: ATTENDING PRIMARY CARE PHYSICIAN: Kadeem Wright MD HISTORY OF PRESENT ILLNESS: The patient is a 40-year-old male, who is known to us. 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 He was treated with oral chemotherapy, which he finished in April of this year. He does have a longstanding history of gastroesophageal reflux disease. We had done a previous endoscopy on him before he was found to have a significant sized hiatal hernia at that time. He continued to have significant reflux, especially at night and did correspond with his other physicians who recommended proceeding with an EGD to verify no gastrointestinal metastatic lesions, which we performed. Again, he underwent a followup EGD on 05/16/2021 and was found to have a moderate sized hiatal hernia that was approximately 3 cm in size. Biopsies were negative for H. pylori as well as negative for Collazo's esophagus. He then underwent an esophageal manometry study, which did show some decreased waveform contractions as well as effective swallows. It was recommended to proceed with a loose hiatal hernia repair as well as a loose wrap and to do an anterior 180-degree fundoplication. On 06/14/2021, he underwent a laparoscopic hiatal hernia repair and a Derik anterior 180-degree wrap. Findings were symptomatic moderate sized hiatal hernia that was approximately 3 cm in size. He tolerated the procedure well and was later discharged home. On today's visit, he reports that about a week ago, he just returned back from a trip to [facility] for a week. He reports that a few days after returning back, he did start developing nausea and vomiting as well as abdominal pain. He did present to the ER and was started on Carafate as well as instructed to continue his PPI acid reducers. He did receive a liter of saline as well as underwent a CT, which was unremarkable. He then presented back to the emergency room last night with continued nausea and vomiting as well as abdominal pain and multiple episodes of diarrhea. He was found to be dehydrated and was admitted for the dehydration as well as nausea and vomiting and diarrhea. He reports today that he continues to have multiple episodes of diarrhea as well as a left-sided abdominal pain and nausea. He did report an episode of emesis earlier today. He reports that he has been for the most part tolerating the clear liquid diet. He denies any hematemesis or any coffee ground emesis. He denies any visible blood in his stool, but did have an occult positive stool. PAST MEDICAL HISTORY: Hypertension, hiatal hernia, gastroesophageal reflux disease, left eye melanoma with metastatic disease, myocardial infarction x3. PAST SURGICAL HISTORY: Cardiac catheterization, laparoscopic hiatal hernia repair and Derik anterior repair on 06/14/2021, laser eye surgery to the left eye. ALLERGIES: PENICILLIN, ASPIRIN, BLUEBERRIES. MEDICATIONS: Lisinopril 20 mg daily, Carafate 1 gram q.i.d. p.r.n., Protonix 40 mg daily, Zofran p.r.n. SOCIAL HISTORY: Previous tobacco smoker, 5 pack years, quit in 2004. Rare for alcohol. FAMILY HISTORY: Father, melanoma. Paternal grandfather, some form of cancer. Paternal grandmother, some form of blood cancer. Maternal grandfather, lung cancer. Maternal grandmother, stroke. VITAL SIGNS: Blood pressure 120/90, pulse 74, respirations 14, pulse ox 90% on room air, temperature 37.2 degrees Celsius. REVIEW OF SYSTEMS: Well-nourished male in no acute distress. He is not experiencing any shortness of breath or difficulty breathing. No chest pain, palpitations or diaphoresis. He does report episodes of nausea and vomiting as well as epigastric to left-sided abdominal pain. He does report multiple episodes of diarrhea, but no constipation. No visible red blood per rectum. No dark tarry stools. No fever or chills. No recent inadvertent weight loss. All other review of systems negative. PHYSICAL EXAMINATION: CHEST: Clear. Good breath sounds bilaterally. HEART: Regular, no murmurs. EXTREMITIES: No lower extremity edema. Negative Homans sign. HEENT: No scleral icterus. NECK: No cervical lymphadenopathy. ABDOMEN: Soft, nondistended. There is some tenderness in the epigastric as well as left upper and lower abdominal quadrants. No palpable masses. No organomegaly. SKIN: Warm, dry and pink. NEUROLOGIC: Awake, alert and oriented x3. ASSESSMENT AND PLAN: A 40-year-old male with abdominal pain as well as nausea and vomiting and diarrhea, most likely secondary to dehydration and has recently traveled and most likely has gastroenteritis. At this time, we will continue with IV fluid hydration as well as nausea and pain medication and bowel rest. We will also proceed with a PPI acid burr filer b.i.d. as well as IV antibiotics and continue to monitor his labs. Once his diarrhea has decreased and pain has improved, then we will discharge him home. Job ID: [id number] DocumentID: [id number] Dictated Date: 07/19/2021 16:04:06 Wet Crown Blocking Operator Date: 07/19/2021 16:24:29 Dictated By: MARSHALL LOPEZ APRN
[2021-07-19 20:02] VITALS: BP 131/94
[2021-07-19] MEDS: PANTOPRAZOLE 40 MG (PROTONIX) VIAL IV SCH (20:04)
[2021-07-19] MEDS: metroNIDAZOLE 500MG/100ML IVPB 100 ML IV SCH (20:05)
[2021-07-19] MEDS: CIPROFLOXACIN IV 400MG/200ML 200 ML IV SCH (21:50)
[2021-07-20] VITALS (7 sets, daily range): BP systolic 118–143; BP diastolic 75–93
[2021-07-20] MEDS: D5 1/2 NS W/KCL 20 MEQ/L 1,000 ML IV SCH ×4 (01:36→17:07)
[2021-07-20] MEDS: HYDROcodone/APAP 7.5 MG/325 MG (LORTAB, LORCET PLUS) TABLET PO PRN ×2 (01:39→08:59)
[2021-07-20 06:14] LABS: HEMATOCRIT 44 % (40-54); MEAN CORPUSCULAR HEMOGLOBIN 29 pg (25-34); MEAN CORPUSCULAR HGB CONC 34 g/dL (32-36); MEAN CORPUSCULAR VOLUME 84 fL (80-99); PLATELET COUNT 210 10^3/uL (130-400); WHITE BLOOD COUNT 7.8 10^3/uL (4.3-11.0)
[2021-07-20 06:32] LABS: ALBUMIN 3.1 GM/DL (3.2-4.5); BILIRUBIN,TOTAL 0.4 MG/DL (0.1-1.0); CREATININE SERUM 0.92 MG/DL (0.60-1.30); POTASSIUM 3.3 MMOL/L (3.6-5.0); TOTAL PROTEIN 5.4 GM/DL (6.4-8.2)
[2021-07-20] MEDS: LOPERAMIDE 2 MG (IMODIUM) TABLET PO PRN (06:39)
[2021-07-20] MEDS: PANTOPRAZOLE 40 MG (PROTONIX) VIAL IV SCH ×2 (08:58→19:32)
[2021-07-20] MEDS: metroNIDAZOLE 500MG/100ML IVPB 100 ML IV SCH ×2 (08:58→19:32)
[2021-07-20] MEDS: CIPROFLOXACIN IV 400MG/200ML 200 ML IV SCH ×2 (08:58→21:02)
[2021-07-20] MEDS: ONDANSETRON 4 MG/2 ML (SDV) Z0FRAN IV PRN (10:07)
--- NOTE | 2021-07-20 14:39 | Progress Note ---
Subjective Date Seen by a Provider: Jul 20, 2021 Time Seen by a Provider: 14:30 Subjective/Events-last exam doing ok. still has diarrhea. tolerating clears. nausea/dry heaving improved. Focused Exam Lactate Level 07/18/21 21:35: Lactic Acid Level 2.21*H 07/19/21 01:13: Lactic Acid Level 1.50 Objective Exam Vital Signs Date Time Temp Pulse Resp B/P (MAP) Pulse Ox O2 Delivery O2 Flow Rate FiO2 07/20/21 12:00 35.9 64 20 127/80 (96) 98 Room Air 07/20/21 08:00 Room Air 07/20/21 08:00 35.9 73 20 143/93 (110) 96 Room Air 07/20/21 04:00 36.0 79 19 118/79 (92) 96 Room Air 07/20/21 00:06 36.3 79 19 123/75 (91) 97 Room Air 07/19/21 20:30 Room Air 07/19/21 20:02 36.1 83 16 131/94 (106) 95 Room Air 07/19/21 16:08 36.3 81 16 129/90 (103) 98 Room Air I & O 07/20/21 07:00 Intake Total 5020 ml Output Total 15 ml Balance 5005 ml Capillary Refill : Less Than 3 Seconds General Appearance: No Apparent Distress HEENT: PERRL/EOMI Neck: Full Range of Motion Respiratory: Chest Non Tender, Lungs Clear Cardiovascular: Regular Rate, Rhythm Gastrointestinal: normal bowel sounds, soft Extremity: Normal Capillary Refill Neurologic/Psychiatric: Alert, Oriented x3 Skin: Normal Color Lymphatic: No Adenopathy Results Lab Laboratory Tests 07/20/21 06:00: White Blood Count 7.8, Red Blood Count 5.20, Hemoglobin 15.0, Hematocrit 44, Mean Corpuscular Volume 84, Mean Corpuscular Hemoglobin 29, Mean Corpuscular Hemoglobin Concent 34, Red Cell Distribution Width 12.2, Platelet Count 210, Mean Platelet Volume 9.0, Sodium Level 136, Potassium Level 3.3L, Chloride Level 109H, Carbon Dioxide Level 16L, Anion Gap 11, Blood Urea Nitrogen 5L, Creatinine 0.92, Estimat Glomerular Filtration Rate 91, BUN/Creatinine Ratio 5, Glucose Level 154H, Calcium Level 8.0L, Corrected Calcium 8.7, Total Bilirubin 0.4, Aspartate Amino Transf (AST/SGOT) 19, Alanine Aminotransferase (ALT/SGPT) 23, Alkaline Phosphatase 72, Total Protein 5.4L, Albumin 3.1L Microbiology 07/18/21 Blood Culture - Preliminary, Resulted No growth 07/18/21 Fecal Leukocyte Stain - Final, Resulted 07/18/21 C. difficile GDH Antigen & Toxins - Final, Resulted 07/18/21 Stool Culture, Resulted Pending Assessment/Plan Assessment/Plan Assess & Plan/Chief Complaint diarrhea/dehydration s/p HH hernia repair and recent travel. cont abx. advance to dys3 diet. MENDY DE LEON MD Jul 20, 2021 14:39
[2021-07-21] MEDS: D5 1/2 NS W/KCL 20 MEQ/L 1,000 ML IV SCH ×3 (03:23→09:03)
[2021-07-21] MEDS: ONDANSETRON 4 MG/2 ML (SDV) Z0FRAN IV PRN (03:23)
[2021-07-21 04:00] VITALS: BP 100/62
[2021-07-21 08:00] VITALS: BP 128/60
[2021-07-21] MEDS: metroNIDAZOLE 500MG/100ML IVPB 100 ML IV SCH (09:03)
[2021-07-21] MEDS: CIPROFLOXACIN IV 400MG/200ML 200 ML IV SCH (09:03)
[2021-07-21] MEDS: PANTOPRAZOLE 40 MG (PROTONIX) VIAL IV SCH (09:03)
--- NOTE | 2021-07-21 11:19 | Progress Note ---
Subjective Date Seen by a Provider: Jul 21, 2021 Time Seen by a Provider: 10:40 Subjective/Events-last exam Patient seen with Dr. Storm. Patient reporting doing ok this morning. Diarrhea has decreased and only had 5 episodes last night, none yet today. Tolerating diet. Still having some left upper quadrant abdominal discomfort. No nausea, but one episode of vomiting last night, but reports small and liquid. Focused Exam Lactate Level 07/18/21 21:35: Lactic Acid Level 2.21*H 07/19/21 01:13: Lactic Acid Level 1.50 Objective Exam Vital Signs Date Time Temp Pulse Resp B/P (MAP) Pulse Ox O2 Delivery O2 Flow Rate FiO2 07/21/21 09:00 Room Air 07/21/21 08:00 36.3 66 18 128/60 (82) 98 Room Air 07/21/21 04:00 36.3 68 18 100/62 (75) 98 Room Air 07/20/21 23:30 36.2 80 18 131/79 (96) 95 Room Air 07/20/21 19:45 Room Air 07/20/21 19:03 36.2 69 20 128/85 (99) 96 Room Air 07/20/21 16:04 36.4 70 18 131/79 (96) 97 Room Air 07/20/21 12:00 35.9 64 20 127/80 (96) 98 Room Air I & O 07/21/21 07:00 Intake Total 3990 ml Balance 3990 ml Capillary Refill : Less Than 3 Seconds General Appearance: No Apparent Distress, WD/WN Neck: Normal Inspection, Supple Respiratory: No Accessory Muscle Use, No Respiratory Distress Cardiovascular: Regular Rate, Rhythm, No Edema Gastrointestinal: normal bowel sounds, soft, tenderness (LUQ) Extremity: Normal Inspection, Normal Range of Motion Neurologic/Psychiatric: Alert, Oriented x3 Skin: Normal Color, Warm/Dry Results Lab Microbiology 07/18/21 Blood Culture - Preliminary, Resulted No growth 07/18/21 Fecal Leukocyte Stain - Final, Resulted 07/18/21 C. difficile GDH Antigen & Toxins - Final, Resulted 07/18/21 Stool Culture, Resulted Pending Assessment/Plan Assessment/Plan Assess & Plan/Chief Complaint A 40 year old male with diarrhea/dehydration s/p HH hernia repair and recent travel. cont abx. advance to dys3 diet. May DC home today if diarrhea controlled MARSHALL LOPEZ SUPERVISOR TYPE PHOTOGRAPHY Jul 21, 2021 11:19
--- NOTE | 2021-07-21 11:21 | Discharge Inst-Surgical ---
D/C Lap Instructions-KIDO Reconcile Patient Problems Problems Reviewed?: Yes New, Converted, or Re-Newed RX: RX on Chart Follow Up Appt in 2 weeks Activity as tolerated No driving while on pain medications High Fiber Diet 25g or more per day Avoid Alcohol, Caffeine, Spicy Mustang and Acid foods. Drink 64 fluid oz or more of fluids per day. Symptoms to Report: Fever over 101 degree F, increased Nausea/Vomiting If any problems/questions: Contact your physician or go to Emergency Room MARSHALL LOPEZ APRN Jul 21, 2021 11:21
== END 2021-07-21 13:40 | disposition home or self-care (01) ==
LOC: EDUNIT# 20:32 → ER 20:35 → 4TH 23:55
PROVIDERS: ADMIT Surgery; ATTEND Surgery
DX: E86.0 Dehydration (principal); R10.13 Epigastric pain; R10.12 Left upper quadrant pain; R19.7 Diarrhea, unspecified; R11.2 Nausea with vomiting, unspecified; I10 Essential (primary) hypertension; K21.9 Gastro-esophageal reflux disease without esophagitis; Z98.890 Other specified postprocedural states; Z79.2 Long term (current) use of antibiotics; Z79.891 Long term (current) use of opiate analgesic; Z79.899 Other long term (current) drug therapy
CPT/HCPCS: 36415; 71045; 71260; 74177; 80048; 80053; 80306; 81000; 82150; 82274; 83605; 83615; 83690; 83735; 84145; 85025; 85027; 85652; 86141; 87015; 87040; 87045; 87046; 87324; 87328; 87329; 87449; 87636; 87899; 89055; 93041; 96361; 96374; 96375; G0378

== ENCOUNTER 2021-08-22 05:28 | Outpatient (RCR) | payer BC ==
[~2021-08-22] VITALS: Ht 193 cm; Wt 141.8 kg
[~2021-08-22 05:28] MED LIST changes: +PANT40TA52 PO; +SUCR1TAB PO
== END 2021-08-22 09:44 | disposition home or self-care (01) ==
LOC: PREOP 05:28
PROVIDERS: ATTEND Surgery
DX: Z01.812 Encounter for preprocedural laboratory examination (principal); K92.0 Hematemesis; R19.7 Diarrhea, unspecified; Z20.822 Contact with and (suspected) exposure to COVID-19
CPT/HCPCS: 87635

== ENCOUNTER 2021-08-24 11:17 | Day surgery (SDC) | payer BC ==
[~2021-08-24] VITALS: Ht 193 cm; Wt 141.8 kg
[2021-08-24] VITALS (16 sets, daily range): BP systolic 129–150; BP diastolic 7–99
[2021-08-24] MEDS ORDERED: NS IV 500 ML 500 ML ONE (11:27)
[2021-08-24] MEDS ORDERED: MIDAZOLAM 5 MG/5 ML (VERSED) VIAL IV ONE (11:30)
[2021-08-24] MEDS ORDERED: NS IV 500 ML 500 ML IV PRN (11:30)
[2021-08-24] MEDS ORDERED: LIDOCAINE JELLY 2% 6 ML SYRINGE MM PRN (11:30)
[2021-08-24] MEDS ORDERED: fentaNYL INJ 100 MCG/2 ML AMP IVP ONE (11:30)
[2021-08-24] MEDS ORDERED: HURRICAINE EXT TUBE (BENZOCAINE) XX PRN (11:30)
[2021-08-24] MEDS ORDERED: ONDA-105 PO (11:48)
--- NOTE | 2021-08-24 12:07 | Conscious Sedation/ASA ---
Conscious Sedation Pre-Proced Time 12:00 ASA Score 2 For ASA 3 and 4: Consider anesthesia and medical clearance. Also, for patients with a history of failed moderate sedation consider anesthesia. Airway Lungs Heart ASA score ASA 1: a normal healthy patient ASA 2: a patient with a mild systemic disease (mid diabetes, controlled hypertension, obesity ASA 3: a patient with a severe systemic disease that limits activity (angina, COPD, prior Myocardial infarction) ASA 4: a patient with an incapacitating disease that is a constant threat to life (CHF, renal failure) ASA 5: a moribund patient not expected to survive 24 hrs. (ruptured aneurysm) ASA 6: a declared brain- patient whose organs are being harvested. For emergent operations, add the letter E after the classification Mallampati Classification Grade 2 Sedation Plan Analgesia, Amnesia, Plan communicated to team members, Discussed options with patient/fam, Discussed risks with patient/fam The patient is an appropriate candidate to undergo the planned procedure, sedation, and anesthesia. The patient immediately re-assessed prior to indication. MENDY DE LEON MD Aug 24, 2021 12:07
--- NOTE | 2021-08-24 12:08 | Progress Note-Pre Operative ---
Pre-Operative Progress Note H&P Reviewed The H&P was reviewed, patient examined and no changes noted. Date Seen by Provider: Aug 24, 2021 Time Seen by Provider: 12:00 Date H&P Reviewed: Aug 24, 2021 Time H&P Reviewed: 12:00 Pre-Operative Diagnosis: hematemesis, dysphagia MENDY DE LEON MD Aug 24, 2021 12:08
--- NOTE | 2021-08-24 12:10 | Discharge Inst-Surgical ---
D/C Lap Instructions-MOISES Follow Up Activity as tolerated High Fiber Diet 25g or more per day Avoid Alcohol, Caffeine, Spicy [place]abb[place] and Acid foods. Drink 64 fluid oz or more of fluids per day. Symptoms to Report: Fever over 101 degree F, Nausea/Vomiting If any problems/questions: Contact your physician or go to Emergency Room MENDY DE LEON MD Aug 24, 2021 12:10
[2021-08-24] MEDS ORDERED: ONDANSETRON 4 MG/2 ML (SDV) Z0FRAN IVP PRN (12:15)
[2021-08-24] MEDS ORDERED: ONDANSETRON 4 MG (ZOFRAN) ORAL DISSOLVE TAB PO PRN (12:15)
--- NOTE | 2021-08-24 13:39 | Progress Note-Post Operative ---
Post-Operative Progess Note Surgeon (s)/Parts Driver (s) Surgeon MENDY DE LEON MD Parts Driver: none Pre-Operative Diagnosis hematemesis, dysphagia Post-Operative Diagnosis reflux esophagitis(stage 2), mild dist esoph stricture, no recurrent HH, retained gastric food substance, mild gastritis. mild proctitis, mild sigmoid diverticulosis. Procedure & Operative Findings Date of Procedure 08/24/21 Procedure Performed/Findings EGD with bx and balloon dilatation. Colonoscopy. Anesthesia Type cs Estimated Blood Loss Estimated blood loss (mL): minimal Specimens/Packing Specimens Removed ge jxn, antrum MENDY DE LEON MD Aug 24, 2021 13:39
--- NOTE | 2021-08-24 20:41 | OPERATIVE REPORT ---
DATE OF SERVICE: 08/24/2021 ATTENDING PRIMARY CARE PHYSICIAN: Dr. Kadeem Wright. PREOPERATIVE DIAGNOSES: Nausea, vomiting, regurgitation, and hematemesis. POSTOPERATIVE DIAGNOSES: Reflux esophagitis stage II, mild distal esophageal stricture, no recurrent hiatal hernia, retained food substance within the stomach. Mild gastritis. No distal obstructions. Mild proctitis and mild sigmoid diverticulosis. PROCEDURES PERFORMED: EGD with biopsy and balloon dilatation. Colonoscopy. SURGEON: Mendy De Leon MD. ANESTHESIA: Conscious sedation. ESTIMATED BLOOD LOSS: Minimal. FINDINGS: Reflux esophagitis stage II, mild distal esophageal stricture, no recurrent hiatal hernia, retained food substance within the stomach. Mild gastritis. No distal obstructions. Mild proctitis and mild sigmoid diverticulosis. DISPOSITION: The patient tolerated the procedure well. INDICATIONS FOR PROCEDURE: The patient is a 40-year-old male known to us. 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 He has a longstanding history of gastroesophageal reflux disease and hiatal hernia and he had worsening symptoms and wanted to proceed with the repair of the hiatal hernia. He underwent an esophageal manometry, which did show some decreased waveform contractions and he underwent a hiatal hernia repair as well as Derik anterior 180-degree wrap. He then presented to the Emergency Department several weeks later after one week trip to [facility]. He had developed nausea and vomiting, crampy abdominal pain as well as diarrhea. He was found to be significantly dehydrated. A CT scan was performed, which did not show any abnormalities. We treated him conservatively with IV fluids and cultures of the stool were negative. He was started on antibiotics and was able to tolerate a diet and was discharged home. He reported having issues with worsening nausea and vomiting as well as one episode of hematemesis. He is unsure if he has regurgitation versus boo episodes of nausea and vomiting, which may indicate a possible gallbladder etiology. DESCRIPTION OF PROCEDURE: The patient was brought to the endoscopy suite and laid in the left lateral decubitus position. After adequate IV pain and sedative medications and conscious sedation anesthesia, the mouthpiece was applied. The endoscope was placed in the mouth, visualizing the pharynx and hypopharyngeal region. Vocal cords, epiglottis and vallecula identified and appeared to be normal. The endoscope was then gently intubated, the esophageal opening and esophagus insufflated. The endoscope was then advanced through the first, second and third portions of the esophagus. At the level of the GE junction, a reflux esophagitis stage II identified. There were no ulcers identified. There may have been a mild distal esophageal stricture. A biopsy was taken with forceps with visualization of good hemostasis. The endoscope was then advanced into the stomach and endoscope retroflexed visualizing an intact previous hiatal hernia repair as well as antireflux procedure. There was no recurrent hiatal hernia. The abnormality detected was retained food substance throughout the stomach after being n.p.o. for a significant amount of hours. This may indicate some form of gastroparesis. There was a mild gastritis. A biopsy was taken of the antrum to rule out H. pylori with visualization of good hemostasis. The endoscope was then advanced to the pylorus and the first and second portions of the duodenum, which appeared normal with no distal obstructions. We then proceeded with balloon dilatation of the distal esophagus and the balloon was placed in the stomach and pulled back to the area of the stricture. We then proceeded in a gradual stepwise fashion from 2, then 4 atmospheres of pressure with moderate resistance over 19 mm in luminal diameter and left this in place for 60 seconds. The balloon was then desufflated and removed with visualization of good hemostasis as well as no mucosal tears. The endoscope was then slowly withdrawn while taking a second look and suctioning of residual air with no additional findings. A digital rectal examination was performed. There were no significant hemorrhoids identified. Normal sphincter tone was felt and there were no palpable masses. Prostate gland was palpable and appeared to be normal. The endoscope was then intubated and anus and rectum gently insufflated. The endoscope was then advanced through the valves of [place] of the rectum, where a mild proctitis identified. This may have been due to his remnants of his previous overseas travel. However, also may have been due to the prep. The endoscope was then advanced through the sigmoid colon, where mild sigmoid diverticulosis identified. The endoscope was then advanced in the remainder of the descending, transverse, and ascending colon to the cecum, which were normal. There were no polyps or any neoplasms identified. The endoscope was then slowly withdrawn while taking a second look and suctioning of residual air with no additional findings. The patient tolerated the procedure well. We will proceed with medical management with small and more frequent meals, avoidance of eating at night as well as head elevation while lying supine. We will also proceed with a trial of Reglan; however, if he continues to have issues with nausea and vomiting, he may need further workup including a gallbladder workup with ultrasound and HIDA scan; however, also a workup for gastroparesis, which would entail nuclear gastric emptying study. At this time, from a standpoint of bowel movements, he is asymptomatic and we will recommend continued medical management with a high fiber diet with at least 30 grams of fiber daily to promote soft stools on a daily basis. At this time, he is not having any issues with the diarrhea. Job ID: [id number] DocumentID: [id number] Dictated Date: 08/24/2021 13:22:10 Food Beverage Supervisor Date: 08/24/2021 20:40:55 Dictated By: MENDY DE LEON MD MTDD
== END 2021-08-24 14:30 | disposition home or self-care (01) ==
LOC: ENDO 11:17
PROVIDERS: ATTEND Surgery
DX: K21.00 Gastro-esophageal reflux disease with esophagitis, without bleeding (principal); K22.2 Esophageal obstruction; K92.0 Hematemesis; K22.70 Barrett's esophagus without dysplasia; K29.70 Gastritis, unspecified, without bleeding; K44.9 Diaphragmatic hernia without obstruction or gangrene; K57.30 Diverticulosis of large intestine without perforation or abscess without bleeding; K62.89 Other specified diseases of anus and rectum; R19.7 Diarrhea, unspecified; I10 Essential (primary) hypertension; I25.2 Old myocardial infarction; Z85.840 Personal history of malignant neoplasm of eye; Z79.899 Other long term (current) drug therapy; Z87.891 Personal history of nicotine dependence; Z80.1 Family history of malignant neoplasm of trachea, bronchus and lung; Z80.8 Family history of malignant neoplasm of other organs or systems
CPT/HCPCS: 88305

== ENCOUNTER 2021-09-11 16:36 | Emergency (ER) | payer BC ==
[~2021-09-11] VITALS: Ht 193 cm; Wt 129.3 kg
[~2021-09-11 16:36] MED LIST changes: +ONDA-105 PO
[2021-09-11] MEDS ORDERED: NS IV 1000 ML 1,000 ML IV SCH (17:00)
--- NOTE | 2021-09-11 17:11 | ED General ---
General Chief Complaint: COVID19 Suspect/Confirmed Stated Complaint: COVID + FEVER/COUGH/SOA/DEHYDRATED Source of Information: Patient Exam Limitations: No Limitations (FROYLAN LUO APRN) History of Present Illness Date Seen by Provider: Sep 11, 2021 Time Seen by Provider: 17:07 Initial Comments to ER with reports that he is Covid positive coughing general malaise body aches and high fever. He became symptomatic on 09/08/2021 and tested positive at [facility] urgent care on 09/09/2021. He is scheduled for monoclonal antibody infusion this , 09/13/2021, 2 days from now. He took Tylenol at home prior to coming here due to a high fever of 103. 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 Not currently on any treatment, has finished chemotherapy last year. He did receive [employer] Covid vaccine in December of this year. Timing/Duration: 1-2 Days Severity: Moderate Associated Systoms: Denies Symptoms (FROYLAN LUO APRN) Allergies and Home Medications Allergies Coded Allergies: Penicillins (Verified Allergy, Unknown, 07/17/20) aspirin (Verified Allergy, Unknown, 07/17/20) blueberry (Verified Allergy, Unknown, 06/14/21) Patient Home Medication List Home Medication List Reviewed: Yes (FROYLAN LUO APRN) Lisinopril (Lisinopril) 20 Mg Tablet, 20 MG PO DAILY, (Reported) Entered as Reported by: ANABEL WILDER on 08/21/21 1303 Ondansetron HCl (Ondansetron HCl) 4 Mg Tablet, 4 MG PO DAILY, (Reported) Entered as Reported by: JONATHAN YAN on 08/24/21 1148 Pantoprazole Sodium (Pantoprazole Sodium) 40 Mg Tablet.dr, 40 MG PO DAILY, (Reported) Entered as Reported by: YORDAN BELLA on 07/19/21 1125 Sucralfate (Sucralfate) 1 Gm Tablet, 1 GM PO QID, (Reported) Entered as Reported by: ANABEL WILDER on 08/21/21 1303 Review of Systems Review of Systems Constitutional: see HPI EENTM: see HPI Respiratory: no symptoms reported Cardiovascular: no symptoms reported Genitourinary: no symptoms reported Musculoskeletal: no symptoms reported Skin: no symptoms reported Psychiatric/Neurological: No Symptoms Reported Hematologic/Lymphatic: No Symptoms Reported Immunological/Allergic: no symptoms reported (FROYLAN LUO APRN) Past Zdjrvtf-Spjlzv-Hydqpd Hx Immunizations Up To Date First/Initial COVID19 Vaccinat: 12/15/2020 Second COVID19 Vaccination Donovan: 2020 Third COVID19 Vaccination Date: DEVORA (FROYLAN LUO APRN) Seasonal Allergies Seasonal Allergies: Yes (FROYLAN LUO APRN) Past Medical History Surgery/Hospitalization HX: RECENT LAP IRVIN FUNDOPLICATION 06/14/21 OCULAR MELANOMA - TX W CHEMO AND RADIATION Surgeries: Yes (CARDIAC CATH-NO INTERVENTION;LEFT EYE LASER SURGERY + AVASTIN INJ) Abdominal, Cardiac, Eye Surgery Respiratory: No Currently Using CPAP: No Currently Using BIPAP: No Cardiac: Yes (CARDIAC CATH-NO INTERVENTION; QUIT TAKING COREG FOR HTN > 10 YEARS AGO. 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) Loss of Vision: Left Cancer: Yes (UVEAL MELANOMA OF L EYE-DX 12/2019--S/P RADIATION,AVASTIN INJECTIONS,LASER) Did You Recieve Any Treatments: Yes What Type of Treatment Did You: Chemotherapy, Radiation, Surgical Intervention Psychosocial: No Integumentary: No Blood Disorders: No Adverse Reaction/Blood Tranf: No (N/A) (FROYLAN LUO APRN) Family Medical History No Pertinent Family Hx (FROYLAN LUO APRN) Physical Exam Vital Signs Vital Signs - First Documented 09/11/21 16:54 Temp 38.8 Pulse 96 Resp 21 B/P (MAP) 129/90 (103) Pulse Ox 94 O2 Delivery Room Air (RIANNA MERCADO MD) Vital Signs Capillary Refill : (FROYLAN LUO APRN) Height, Weight, BMI Height: 6'3.00" Weight: 278lbs. 0.0oz. 126.816354fy; 38.06 BMI Method:Stated General Appearance: No Apparent Distress, WD/WN, Other (Apathetic, flat. Oxygen saturation 94 to 96% on room air. Heart rate 95. Blood pressure 129/81.) Eyes: Bilateral Eye Normal Inspection, Bilateral Eye PERRL, Bilateral Eye EOMI HEENT: PERRL/EOMI, TMs Normal Neck: Full Range of Motion, Normal Inspection Respiratory: No Accessory Muscle Use, No Respiratory Distress Cardiovascular: Regular Rate, Rhythm, Normal Peripheral Pulses Gastrointestinal: Non Tender, Soft Extremity: Normal Capillary Refill, Normal Inspection Neurologic/Psychiatric: Alert, Oriented x3 Skin: Normal Color, Warm/Dry (FROYLAN LUO APRN) Progress/Results/Core Measures Suspected Sepsis SIRS Temperature: Pulse: Respiratory Rate: Blood Pressure / Mean: (FROYLAN LUO APRN) Results/Orders Lab Results Laboratory Tests Test 09/11/21 17:09 09/11/21 18:48 Range/Units White Blood Count 3.4 L 4.3-11.0 10^3/uL Red Blood Count 5.66 H 4.30-5.52 10^6/uL Hemoglobin 15.8 13.3-17.7 g/dL Hematocrit 47 40-54 % Mean Corpuscular Volume 83 80-99 fL Mean Corpuscular Hemoglobin 28 25-34 pg Mean Corpuscular Hemoglobin Concent 34 32-36 g/dL Red Cell Distribution Width 12.5 10.0-14.5 % Platelet Count 145 130-400 10^3/uL Mean Platelet Volume 9.1 9.0-12.2 fL Immature Granulocyte % (Auto) 0 % Neutrophils (%) (Auto) 74 42-75 % Lymphocytes (%) (Auto) 20 12-44 % Monocytes (%) (Auto) 5 0-12 % Eosinophils (%) (Auto) 0 0-10 % Basophils (%) (Auto) 0 0-10 % Neutrophils # (Auto) 2.5 1.8-7.8 10^3/uL Lymphocytes # (Auto) 0.7 L 1.0-4.0 10^3/uL Monocytes # (Auto) 0.2 0.0-1.0 10^3/uL Eosinophils # (Auto) 0.0 0.0-0.3 10^3/uL Basophils # (Auto) 0.0 0.0-0.1 10^3/uL Immature Granulocyte # (Auto) 0.0 0.0-0.1 10^3/uL Sodium Level 137 135-145 MMOL/L Potassium Level 3.6 3.6-5.0 MMOL/L Chloride Level 102 98-107 MMOL/L Carbon Dioxide Level 21 21-32 MMOL/L Anion Gap 14 5-14 MMOL/L Blood Urea Nitrogen 8 7-18 MG/DL Creatinine 0.89 0.60-1.30 MG/DL Estimat Glomerular Filtration Rate 95 BUN/Creatinine Ratio 9 Glucose Level 122 H 70-105 MG/DL Calcium Level 8.7 8.5-10.1 MG/DL Corrected Calcium 8.5 8.5-10.1 MG/DL Magnesium Level 2.0 1.6-2.4 MG/DL Total Bilirubin 0.4 0.1-1.0 MG/DL Aspartate Amino Transf (AST/SGOT) 31 5-34 U/L Alanine Aminotransferase (ALT/SGPT) 41 0-55 U/L Alkaline Phosphatase 74 40-136 U/L C-Reactive Protein High Sensitivity 0.80 H 0.00-0.50 MG/DL Total Protein 7.3 6.4-8.2 GM/DL Albumin 4.2 3.2-4.5 GM/DL Urine Color YELLOW Urine Clarity CLEAR Urine pH 6.0 5-9 Urine Specific [place] 1.015 L 1.016-1.022 Urine Protein NEGATIVE NEGATIVE Urine Glucose (UA) NEGATIVE NEGATIVE Urine Ketones 1+ H NEGATIVE Urine Nitrite NEGATIVE NEGATIVE Urine Bilirubin NEGATIVE NEGATIVE Urine Urobilinogen 0.2 < = 1.0 MG/DL Urine Leukocyte Esterase NEGATIVE NEGATIVE Urine RBC (Auto) NEGATIVE NEGATIVE Urine RBC 0-2 /HPF Urine WBC 0-2 /HPF Urine Squamous Epithelial Cells NONE /HPF Urine Renal Epithelial Cells NONE /HPF Urine Crystals NONE /LPF Urine Bacteria NEGATIVE /HPF Urine Casts NONE /LPF Urine Mucus NEGATIVE /LPF Urine Culture Indicated NO (RIANNA MERCADO MD) My Orders Orders - RIANNA MERCADO MD Cbc With Automated Diff (09/11/21 16:46) Comprehensive Metabolic Panel (09/11/21 16:46) Magnesium (09/11/21 16:46) Ua Culture If Indicated (09/11/21 16:46) Ed Iv/Invasive Line Start (09/11/21 16:46) Ns Iv 1000 Ml (Sodium Chloride 0.9%) (12/7/21 17:00) (RIANNA MERCADO MD) Vital Signs/I&O 09/11/21 09/11/21 16:54 18:52 Temp 38.8 Pulse 96 86 Resp 21 18 B/P (MAP) 129/90 (103) 126/85 Pulse Ox 94 95 O2 Delivery Room Air Room Air 09/12/21 00:00 Intake Total 1000 ml Balance 1000 ml (RIANNA MERCADO MD) Vital Signs/I&O Capillary Refill : (FROYLAN LUO APRN) Departure Impression Primary Impression: COVID-19 Disposition: 01 HOME, SELF-CARE Condition: Stable Departure-Patient Inst. Decision time for Depature: 17:10 (FROYLAN LUO APRN) Referrals: SHANELLE GILLIS MD (PCP/Family) Primary Care Physician Patient Instructions: COVID-19 ED Add. Discharge Instructions: 1. Keep your appointment for the monoclonal antibody infusion on of this week. All discharge instructions reviewed with patient and/or family. Voiced understanding. ATTENDING PHYSICIAN NOTE: I was physically present as attending physician in the emergency department during the care of this patient, but I was not directly involved in the decision making or delivery of care for this patient. (RIANNA MERCADO MD) FROYLAN LUO APRN Sep 11, 2021 17:10 RIANNA MERCADO MD Sep 12, 2021 11:21
[2021-09-11] MEDS ORDERED: IBUPROFEN 800 MG (MOTRIN) TAB PO ONE (17:15)
[2021-09-11 17:22] LABS: BASOPHILS % (AUTO) 0 % (0-10); EOSINOPHILS % (AUTO) 0 % (0-10); HEMATOCRIT 47 % (40-54); HEMOGLOBIN 15.8 g/dL (13.3-17.7); LYMPHOCYTES # (AUTO) 0.7 10^3/uL (1.0-4.0); LYMPHOCYTES % (AUTO) 20 % (12-44); MEAN CORPUSCULAR HEMOGLOBIN 28 pg (25-34); MEAN CORPUSCULAR HGB CONC 34 g/dL (32-36); MEAN CORPUSCULAR VOLUME 83 fL (80-99); MEAN PLATELET VOLUME 9.1 fL (9.0-12.2); MONOCYTES # (AUTO) 0.2 10^3/uL (0.0-1.0); MONOCYTES % (AUTO) 5 % (0-12); NEUTROPHILS # (AUTO) 2.5 10^3/uL (1.8-7.8); NEUTROPHILS % (AUTO) 74 % (42-75); PLATELET COUNT 145 10^3/uL (130-400); WHITE BLOOD COUNT 3.4 10^3/uL (4.3-11.0)
[2021-09-11 17:23] LABS: ALBUMIN 4.2 GM/DL (3.2-4.5); POTASSIUM 3.6 MMOL/L (3.6-5.0)
[2021-09-11 17:24] LABS: CALCIUM 8.7 MG/DL (8.5-10.1)
[2021-09-11 17:25] LABS: TOTAL PROTEIN 7.3 GM/DL (6.4-8.2)
[2021-09-11 17:27] LABS: BILIRUBIN,TOTAL 0.4 MG/DL (0.1-1.0)
[2021-09-11 17:29] LABS: CREATININE SERUM 0.89 MG/DL (0.60-1.30)
--- NOTE | 2021-09-11 18:01 | Diagnostic Imaging Report ---
EXAMINATION: Chest 1 view HISTORY: Covid-19 COMPARISON: 07/18/2021 FINDINGS: Lung volumes are small. There are patchy airspace opacities. No pleural effusion or pneumothorax. Heart size is normal. IMPRESSION: 1. Small volume lungs with patchy airspace opacities consistent with history of Covid-19 pneumonia. Dictated by: Dictated on workstation # [id number]
[2021-09-11 18:52] VITALS: BP 126/85
[2021-09-11 18:53] LABS: BILIRUBIN,URINE NEGATIVE (NEGATIVE); CLARITY,URINE CLEAR; COLOR,URINE YELLOW; GLUCOSE, URINE (UA) NEGATIVE (NEGATIVE); KETONES,URINE 1+ (NEGATIVE); LEUKOCYTE ESTERASE ,URINE NEGATIVE (NEGATIVE); NITRITE,URINE NEGATIVE (NEGATIVE); PROTEIN,URINE NEGATIVE (NEGATIVE)
[2021-09-11 19:03] LABS: BACTERIA,URINE NEGATIVE /HPF; RBC,URINE 0-2 /HPF; WBC,URINE 0-2 /HPF
== END 2021-09-11 18:52 | disposition home or self-care (01) ==
LOC: EDUNIT# 16:36 → ER 16:38
DX: U07.1 COVID-19 (principal); I25.2 Old myocardial infarction; K21.9 Gastro-esophageal reflux disease without esophagitis; Z79.899 Other long term (current) drug therapy
CPT/HCPCS: 36415; 71045; 80053; 81000; 83735; 85025; 86141

== ENCOUNTER 2021-09-13 09:33 | Outpatient (CLI) | payer BC ==
[~2021-09-13] VITALS: Ht 193 cm; Wt 136.4 kg
[2021-09-13 09:40] VITALS: BP 120/79
[2021-09-13] MEDS ORDERED: EPINEPHrine INJECTION 1 MG/ML AMP IM PRN (09:45)
[2021-09-13] MEDS ORDERED: ACETAMINOPHEN 500 MG TAB (TYLENOL) PO PRN (09:45)
[2021-09-13] MEDS ORDERED: CASIRIVIMAB/IMDEVIMAB 1,200 MG in NS (IVPB) 250 ML IV ONE (09:45)
[2021-09-13] MEDS ORDERED: ONDANSETRON 4 MG/2 ML (SDV) Z0FRAN IV PRN (09:45)
[2021-09-13] MEDS ORDERED: diphenhydrAMINE 50 MG/ML INJ (BENADRYL) IV PRN (09:45)
[2021-09-13 11:24] VITALS: BP 127/83
== END 2021-09-13 11:27 | disposition home or self-care (01) ==
LOC: INFUSION 09:33
PROVIDERS: ATTEND Nurse Practitioner Family
DX: U07.1 COVID-19 (principal)

== ENCOUNTER → 2021-10-09 | Outpatient (CLI) | payer BC, OTHER ==
--- NOTE | 2021-10-09 14:49 | Diagnostic Imaging Report ---
EXAMINATION: Gastric emptying study. INDICATION: Abdominal pain. TECHNIQUE: This study was performed following administration of 1.1 mCi of 99m-technetium sulfur colloid in egg. FINDINGS: Normally, 50% of the radiotracer clears from the stomach by 60 minutes, +/- 60 minutes. On this exam at 60 minutes, only 6% of the radiotracer had cleared from the stomach. By 118 minutes, there was only 9% of the radiotracer cleared from the stomach. At 180 minutes, only 10% of the radiotracer had cleared from the stomach, and at 240 minutes, only 16% had been cleared. These values do indicate that there is severe delay in gastric emptying. The reason for this is not certain. Where this is secondary to gastroparesis or to a partial gastric outlet obstruction is not clear. If further study is desired, then either an upper GI exam or endoscopy would be recommended. IMPRESSION: There is severe delay in gastric emptying. The reason for this is not certain. Recommendations as above. Dictated by: Dictated on workstation # [id number]
== END ==
LOC: CARD 10:00
PROVIDERS: ATTEND Surgery
DX: R10.9 Unspecified abdominal pain (principal); R13.10 Dysphagia, unspecified; R11.2 Nausea with vomiting, unspecified
CPT/HCPCS: 78264; A9541

== ENCOUNTER → 2021-12-22 | Outpatient (CLI) | payer OTHER ==
[~2021-12-22] MED LIST changes: +HOLD METFORMIN - RECEIVED CONTRAST 20 ML VIAL IV SCH; +IOHEXOL 350 MG/ML 100 ML (OMNIPAQUE 350) VIAL IV ONE; +NS 100 ML (IVPB) BAG IV ONE
[2021-12-22 13:24] LABS: BASOPHILS % (AUTO) 0 % (0-10); EOSINOPHILS # (AUTO) 0.6 10^3/uL (0.0-0.3); EOSINOPHILS % (AUTO) 9 % (0-10); HEMATOCRIT 47 % (40-54); HEMOGLOBIN 16.2 g/dL (13.3-17.7); LYMPHOCYTES # (AUTO) 1.7 10^3/uL (1.0-4.0); LYMPHOCYTES % (AUTO) 26 % (12-44); MEAN CORPUSCULAR HEMOGLOBIN 29 pg (25-34); MEAN CORPUSCULAR HGB CONC 34 g/dL (32-36); MEAN CORPUSCULAR VOLUME 84 fL (80-99); MEAN PLATELET VOLUME 9.3 fL (9.0-12.2); MONOCYTES # (AUTO) 0.6 10^3/uL (0.0-1.0); MONOCYTES % (AUTO) 10 % (0-12); NEUTROPHILS # (AUTO) 3.6 10^3/uL (1.8-7.8); NEUTROPHILS % (AUTO) 54 % (42-75); PLATELET COUNT 192 10^3/uL (130-400); WHITE BLOOD COUNT 6.7 10^3/uL (4.3-11.0)
[2021-12-22 13:46] LABS: ALANINE AMINOTRANSFERASE 33 U/L (0-55); ALKALINE PHOSPHATASE 123 U/L (40-136); AMYLASE 42 U/L (25-125); BILIRUBIN,TOTAL 0.3 MG/DL (0.1-1.0); BUN/CREATININE RATIO 9; CALCIUM 8.9 MG/DL (8.5-10.1); CARBON DIOXIDE 23 MMOL/L (21-32); CHLORIDE 106 MMOL/L (98-107); CREATININE SERUM 0.81 MG/DL (0.60-1.30); GFR ESTIMATED 114; GLUCOSE 107 MG/DL (70-105); LIPASE < 4 U/L (8-78); POTASSIUM 3.5 MMOL/L (3.6-5.0); SODIUM 141 MMOL/L (135-145)
--- NOTE | 2021-12-22 14:19 | Diagnostic Imaging Report ---
PROCEDURE: CT abdomen and pelvis with contrast. TECHNIQUE: Multiple contiguous axial images were obtained through the abdomen and pelvis after administration of intravenous contrast. Auto Exposure Controls were utilized during the CT exam to meet ALARA standards for radiation dose reduction. All CT scans use one or more of the following dose optimizing techniques: automated exposure control, MA and/or KvP adjustment based on patient size and exam type or iterative reconstruction. INDICATION: Right upper quadrant pain, diarrhea, vomiting. EXAMINATION: CT abdomen and pelvis with contrast 12/22/2021. Comparison made to CT from 07/18/2021 FINDINGS: There is a small nodule in the right lower lobe stable from previous imaging. Remaining lung bases clear. There is diffuse fatty infiltration throughout the liver which is otherwise normal. Gallbladder and spleen normal. Pancreas and adrenal glands unremarkable. Kidneys unremarkable. Appendix normal. There is no ascites or free air. No inflammatory changes appreciated. Nonobstructive bowel gas pattern. Visualized osseous structures demonstrate no acute of abnormalities. IMPRESSION: 1. Incidental findings as above, no acute process appreciated. Dictated by: Dictated on workstation # [id number]
== END ==
LOC: LAB 13:01
PROVIDERS: ATTEND Physician Assistant
DX: R10.12 Left upper quadrant pain (principal); R19.7 Diarrhea, unspecified; R11.10 Vomiting, unspecified; Z20.828 Contact with and (suspected) exposure to other viral communicable diseases; R50.81 Fever presenting with conditions classified elsewhere; D03.8 Melanoma in situ of other sites; M79.18 Myalgia, other site; I25.2 Old myocardial infarction; R53.83 Other fatigue; E66.8 Other obesity
CPT/HCPCS: 36415; 74177; 80053; 82150; 83690; 85025

== ENCOUNTER → 2022-07-22 | Outpatient (CLI) | payer OTHER ==
[~2022-07-22] MED LIST changes: -HOLD METFORMIN - RECEIVED CONTRAST 20 ML VIAL IV SCH; -IOHEXOL 350 MG/ML 100 ML (OMNIPAQUE 350) VIAL IV ONE; -NS 100 ML (IVPB) BAG IV ONE
--- NOTE | 2022-07-22 09:53 | Diagnostic Imaging Report ---
PROCEDURE: US Gallbladder. TECHNIQUE: Multiple real-time grayscale images were obtained over the right upper quadrant in various projections. INDICATION: Right upper quadrant pain Liver is mildly enlarged measuring 19.4 cm length with increased echogenicity. Portal vein is patent with hepatopetal flow. Gallbladder is clear with no stones or wall thickening. Common duct is obscured by bowel gas. There is no intrahepatic biliary ductal dilatation. Pancreas is obscured by bowel gas. Aorta and IVC are obscured by bowel gas. Right kidney measures 12.8 cm length and appears normal. There is no ascites. IMPRESSION: Hepatic steatosis. Imaging is compromised because of patient body habitus. Dictated by: Dictated on workstation # [id number]
== END ==
LOC: RAD 08:45
PROVIDERS: ATTEND Surgery
DX: K76.0 Fatty (change of) liver, not elsewhere classified (principal)
CPT/HCPCS: 76705

== ENCOUNTER → 2022-07-26 | Outpatient (CLI) | payer OTHER ==
[~2022-07-26] MED LIST changes: +CATHETER FLUSH 10 ML SYR IVP PRN
--- NOTE | 2022-07-26 11:18 | Diagnostic Imaging Report ---
Indication: Right upper quadrant pain, nausea and vomiting FINDINGS: Patient received 5.4 mCi intravenous dose techniques and Choletec and sequential imaging over the abdomen performed. At the 45 minute interval fatty meal stimulation was provided with ingestion of ensure and gallbladder ejection fraction quantified. There is prompt homogenous distribution of radiopharmacy throughout the liver parenchyma. Activity quickly accumulates within the gallbladder as well as bile ducts within 5 minutes time. There is fatty meal ingestion gallbladder ejection fraction was 35%. IMPRESSION: Patency of the cystic and common ducts confirmed with no evidence for scintigraphic evidence of biliary leak. Lower limits gallbladder ejection fraction 35% with fatty meal ingestion. Dictated by: Dictated on workstation # [id number]
== END ==
LOC: CARD 07:00
PROVIDERS: ATTEND Surgery
DX: R10.11 Right upper quadrant pain (principal); R11.2 Nausea with vomiting, unspecified
CPT/HCPCS: 78227; A9537

== ENCOUNTER → 2022-08-07 | Outpatient (CLI) | payer OTHER ==
[~2022-08-07] VITALS: Ht 193 cm; Wt 145.0 kg
[~2022-08-07] MED LIST changes: -CATHETER FLUSH 10 ML SYR IVP PRN; +HYDR-3817 PO; +METO-310 PO
== END | disposition home or self-care (01) ==
LOC: PREOP 10:34
PROVIDERS: ATTEND Surgery
DX: Z01.818 Encounter for other preprocedural examination (principal)

== ENCOUNTER 2022-08-08 11:53 | Day surgery (SDC) | payer OTHER ==
[2022-08-08] VITALS (11 sets, daily range): BP systolic 118–157; BP diastolic 79–96
[~2022-08-08] VITALS: Ht 193 cm; Wt 145.0 kg
[~2022-08-08 11:53] MED LIST changes: -HYDR-3817 PO
[2022-08-08] MEDS ORDERED: CLINDAMYCIN 600 MG/50 ML IVPB 50 ML IV ONE (12:30)
[2022-08-08] MEDS: LACTATED RINGERS 1,000 ML IV PRN ×2 (12:44→15:17)
[2022-08-08] MEDS ORDERED: ONDANSETRON 4 MG/2 ML (SDV) Z0FRAN IVP ONE (12:45)
--- NOTE | 2022-08-08 12:54 | Progress Note-Pre Operative ---
Pre-Operative Progress Note Date of Available H&P: Aug 08, 2022 Date H&P Reviewed: Aug 08, 2022 Time H&P Reviewed: 12:30 History & Physical: No changes noted Pre-Operative Diagnosis: sx biliary dyskinesia MENDY DE LEON MD Aug 08, 2022 12:54
[2022-08-08] MEDS ORDERED: HYDR-3817 PO (12:56)
--- NOTE | 2022-08-08 12:56 | Discharge Inst-Surgical ---
D/C Lap Instructions-MOISES New, Converted, or Re-Newed RX: RX on Chart Follow Up Activity as tolerated Regular Diet Symptoms to Report: Fever over 101 degree F, Nausea/Vomiting Infection Signs and Symptoms to report: Increased redness, Foul odor of wound, Increased drainage Bathing instructions: May shower Operative Area Clean/Dry; Keep incision clean/dry If any problems/questions: Contact your physician or go to Emergency Room MENDY DE LEON MD Aug 08, 2022 12:56
[2022-08-08] MEDS ORDERED: morphine INJ 10 MG/ML 1ML (SYR OR VIAL) IVP PRN ×2 (13:00)
[2022-08-08] MEDS ORDERED: oxyCODONE/APAP 5/325MG (PERCOCET 5) TABLET PO PRN (13:00)
[2022-08-08] MEDS ORDERED: ACETAMINOPHEN 325 MG TABLET PO PRN (13:00)
[2022-08-08] MEDS ORDERED: ONDANSETRON 4 MG/2 ML (SDV) Z0FRAN IVP PRN ×2 (13:00→16:15)
[2022-08-08] MEDS ORDERED: LIDOCAINE/EPI 1%-1:100,000 (XYLOCAINE) 10 ML ONE (13:20)
[2022-08-08] MEDS ORDERED: GLYCOPYRROLATE 0.2 MG/ML (ROBINUL) 2 ML VIAL ONE (13:27)
[2022-08-08] MEDS ORDERED: NEOSTIGMINE 3 MG/3 ML VIAL ONE (13:27)
[2022-08-08] MEDS ORDERED: fentaNYL INJ 100 MCG/2 ML AMP ONE (13:27)
[2022-08-08] MEDS ORDERED: ONDANSETRON 4 MG/2 ML (SDV) Z0FRAN ONE (13:27)
[2022-08-08] MEDS ORDERED: proPOfol 200 MG/20 ML (DIPRIVAN) VIAL IV ONE (13:27)
[2022-08-08] MEDS ORDERED: MIDAZOLAM 2 MG/2 ML (VERSED) VIAL ONE (13:27)
[2022-08-08] MEDS ORDERED: LIDOCAINE PF 2% 5 ML (XYLOCAINE) VIAL ONE (13:27)
[2022-08-08] MEDS ORDERED: ROCURONIUM 10 MG/ML 5 ML SYRINGE IV ONE ×2 (13:27→15:23)
[2022-08-08] MEDS ORDERED: LIDOCAINE/EPI 1%-1:100,000 (XYLOCAINE) 20ML IJ ONE (14:52)
[2022-08-08] MEDS ORDERED: HYDROmorphone 2 MG/ML VIAL (DILAUDID) ONE (15:16)
--- NOTE | 2022-08-08 15:45 | Progress Note-Post Operative ---
Post-Operative Progess Note Surgeon (s)/Sales And Service Representative (s) Surgeon MENDY DE LEON MD Sales And Service Representative: julien greenberg STOVE FITTER Pre-Operative Diagnosis sx biliary dyskinesia Post-Operative Diagnosis biliary dyskinesia, umbilical hernia. Procedure & Operative Findings Date of Procedure 08/08/22 Procedure Performed/Findings laparoscopic cholecystectomy, open umbilical hernia repair. Anesthesia Type get Estimated Blood Loss Estimated blood loss (mL): minimal Specimens/Packing Specimens Removed gallbladder MENDY DE LEON MD Aug 08, 2022 15:45
[2022-08-08] MEDS ORDERED: SEVOFLURANE (ULTANE) 15 ML INHAL SOLN ONE (16:00)
--- NOTE | 2022-08-08 16:14 | Anesthesia-General Post-Op ---
General Patient Condition Mental Status/LOC: Same as Preop Cardiovascular: Satisfactory Nausea/Vomiting: Absent Respiratory: Satisfactory Pain: Controlled Complications: Absent Post Op Complications Complications None Follow Up Care/Instructions Patient Instructions None needed. Anesthesia/Patient Condition Patient Condition Patient is doing well in PACU with no complaints of pain or nausea currently. He has stable vital signs, no apparent adverse anesthesia problems. No complications reported per nursing. ALEKSANDAR GAMBLE DO Aug 08, 2022 16:14
[2022-08-08] MEDS ORDERED: morphine INJ 10 MG/ML 1ML (SYR OR VIAL) IVP ONE (16:15)
[2022-08-08] MEDS ORDERED: HYDROmorphone 2 MG/ML VIAL (DILAUDID) IV ONE (16:15)
[2022-08-08] MEDS ORDERED: morphine INJ 10 MG/ML 1ML (SYR OR VIAL) ONE (16:22)
--- NOTE | 2022-08-08 23:32 | OPERATIVE REPORT ---
DATE OF SERVICE: 08/08/2022 PREOPERATIVE DIAGNOSIS: Symptomatic biliary dyskinesia. POSTOPERATIVE DIAGNOSES: Symptomatic biliary dyskinesia, reducible umbilical hernia. PROCEDURE: Laparoscopic cholecystectomy, open umbilical primary repair. SURGEON: Brady Storm MD. MED SPECIALIST: Venancio VANG ANESTHESIA: General endotracheal. ESTIMATED BLOOD LOSS: Minimal. FINDINGS: Distended gallbladder, no gallbladder wall thickening, umbilical hernia with preperitoneal fat within the hernia sac. DISPOSITION: The patient tolerated the procedure well. INDICATIONS: The patient is a 41-year-old male known to us. He had a longstanding history of gastroesophageal reflux disease and tried medical management with dietary and lifestyle changes as well as a PPI acid reducers, however, did continue to have symptoms. This gentleman also does have a history of metastatic ocular melanoma; however, has been taking chemotherapy and has had a good response to the therapy. He underwent a hiatal hernia repair as well as a 180-degree Derik fundoplication in 2000. He reports that he was having acid indigestion problems as well as some mild discomfort as well as early satiety and abdominal bloating after meals. We had done an EGD as well as a balloon dilatation for mild stricture. He continued to have symptoms with early satiety and nausea after eating meals. He underwent a HIDA scan, which did show a low ejection fraction of 20% as well as reproduction of symptoms consistent with symptomatic biliary dyskinesia. DESCRIPTION OF PROCEDURE: The patient was brought to the operating room, laid supine on the table. After adequate IV pain and sedative medications and general endotracheal intubation, the abdomen was prepped and draped in standard surgical fashion. The area in the left upper abdominal quadrant was then anesthetized using 0.5% Marcaine with epinephrine and a transverse skin incision made using a #15 blade. An 0 silk suture was applied to the medial aspect of the incision for retraction. A Veress needle inserted with low opening pressure of 0 mmHg. The Veress needle removed and a 5 mm Xcel trocar placed followed by 5 mm 45-degree angle laparoscope. A 4-quadrant abdominal exploration was performed. There was an umbilical hernia identified, which was reducible with preperitoneal fat within the hernia sac. There was mild gallbladder wall distention, no gallbladder wall thickening. Under direct visualization, we then proceeded to place a 10 mm port through the hernia sac after the skin and hernia sac were anesthetized using 0.5% Marcaine with epinephrine and a transverse skin incision made using a #15 blade. In a similar manner, right upper abdominal quadrant 5 mm port was placed. The patient was then placed in a reverse Trendelenburg position as well as planned right side up, left side down. The fundus of the gallbladder was then retracted anteriorly and superiorly. The hepatoduodenal ligament was then dissected using blunt dissection as well as electrocautery on the hook instrument as well as a [place] dissector. The entire critical view of safety was identified including the triangle of Calot as well as the cystic duct and artery. It was only two structures going to the gallbladder as well as the cystic plate behind the proximal gallbladder. A timeout was then taken and the cystic duct and artery were then clipped proximally and distally and cut with EndoShears. The gallbladder was then dissected off the liver bed using cautery on the hook instrument with visualization. Good hemostasis as well as no leaking ducts of Luschka. The gallbladder was removed through the 10 mm port site using an EndoCatch bag. The hernia sac as well as the preperitoneal fat were then excised through the open incision using electrocautery. The hernia defect was small, approximately 1.5 cm in size. We were able to close this primarily without any tension. Under direct visualization, the corners of the hernia sac were then clamped laterally with Aj clamps. We then proceeded to place 0 Prolene sutures on both ends and proceeded with interrupted 0 Prolene sutures in a transverse manner until the entire fascia was completely closed without any tension. Good hemostasis was observed. The subcutaneous tissue was then reapproximated using 3-0 Vicryl interrupted suture. All skin incisions were then closed using 4-0 Monocryl running subcuticular sutures. Wounds were then cleaned and covered with Dermabond. The patient tolerated the procedure well. POSTOPERATIVE PLAN: We will start IV and oral pain medication as well as a clear liquid diet. Once he was tolerating clears with good pain control with oral pain medications, ambulating well, we will discharge him home where he will be instructed to do no heavy lifting or exertion for the next 2 weeks. Job ID: [id number] DocumentID: [id number] Dictated Date: 08/08/2022 15:55:25 Ceramic Coater Date: 08/08/2022 23:30:00 Dictated By: MD PATRICIA PASTRANA
== END 2022-08-08 18:30 | disposition home or self-care (01) ==
LOC: SDC 11:53
PROVIDERS: ATTEND Surgery
DX: K81.1 Chronic cholecystitis (principal); K42.9 Umbilical hernia without obstruction or gangrene; E66.9 Obesity, unspecified; K21.00 Gastro-esophageal reflux disease with esophagitis, without bleeding; Z87.891 Personal history of nicotine dependence; Z68.38 Body mass index [BMI] 38.0-38.9, adult; Z79.899 Other long term (current) drug therapy
CPT/HCPCS: 87081; 94664

== ENCOUNTER 2022-10-30 06:40 | Outpatient (CLI) | payer OTHER ==
[~2022-10-30] VITALS: Ht 193 cm; Wt 141.3 kg
[~2022-10-30 06:40] MED LIST changes: +HYDR-3817 PO
[2022-10-30] MEDS ORDERED: SUCR1TAB PO (09:01)
== END 2022-10-30 09:23 | disposition home or self-care (01) ==
LOC: PREOP 06:40
PROVIDERS: ATTEND Surgery
DX: Z01.818 Encounter for other preprocedural examination (principal)

== ENCOUNTER 2022-11-06 10:59 | Day surgery (SDC) | payer OTHER ==
[~2022-11-06] VITALS: Ht 193 cm; Wt 141.3 kg
--- NOTE | 2022-11-06 11:18 | Progress Note-Pre Operative ---
Pre-Operative Progress Note Date of Available H&P: Nov 06, 2022 Date H&P Reviewed: Nov 06, 2022 Time H&P Reviewed: 11:00 History & Physical: No changes noted Pre-Operative Diagnosis: rectdal bleed, hx proctitis MENDY DE LEON MD Nov 06, 2022 11:18
--- NOTE | 2022-11-06 11:19 | Discharge Inst-Surgical ---
D/C Lap Instructions-MOISES Follow Up Activity as tolerated High Fiber Diet 25g or more per day Avoid Alcohol, Caffeine, Spicy [place] and Acid foods. Drink 64 fluid oz or more of fluids per day. Symptoms to Report: Fever over 101 degree F, Nausea/Vomiting If any problems/questions: Contact your physician or go to Emergency Room MENDY DE LEON MD Nov 06, 2022 11:19
[2022-11-06] MEDS ORDERED: LACTATED RINGERS 1,000 ML IV STA (11:22)
[2022-11-06 11:25] VITALS: BP 135/98
[2022-11-06] MEDS ORDERED: LIDOCAINE JELLY 2% 6 ML SYRINGE MM PRN (11:30)
[2022-11-06] MEDS ORDERED: ONDANSETRON 4 MG (ZOFRAN) ORAL DISSOLVE TAB PO PRN (11:30)
[2022-11-06] MEDS ORDERED: ONDANSETRON 4 MG/2 ML (SDV) Z0FRAN IVP PRN (11:30)
[2022-11-06] MEDS ORDERED: PROPOFOL INJECTION 50 ML IV ONE (12:29)
[2022-11-06] MEDS ORDERED: MIDAZOLAM 2 MG/2 ML (VERSED) VIAL ONE (12:29)
[2022-11-06] MEDS ORDERED: LIDOCAINE JELLY 2% 6 ML SYRINGE ONE (13:18)
[2022-11-06] MEDS ORDERED: LACTATED RINGERS 0 ML IV ONE (13:19)
[2022-11-06] MEDS ORDERED: proPOfol 200 MG/20 ML (DIPRIVAN) VIAL IV ONE (13:31)
[2022-11-06 13:40] VITALS: BP 144/89
[2022-11-06] MEDS ORDERED: [UNRECOGNIZED DRUG - CODE] PO (13:43)
[2022-11-06 13:45] VITALS: BP 151/89
--- NOTE | 2022-11-06 13:48 | Progress Note-Post Operative ---
Post-Operative Progess Note Surgeon (s)/Paint Striping Machine Operator (s) Surgeon MENDY DE LEON MD Paint Striping Machine Operator: none Pre-Operative Diagnosis rectdal bleed, hx proctitis Post-Operative Diagnosis mild chronic stage 2 ext and int hemorrhoids, severe colitis and sigmoid colitis. Procedure & Operative Findings Date of Procedure 11/06/22 Procedure Performed/Findings colonoscopy with bx. Anesthesia Type mac Estimated Blood Loss Estimated blood loss (mL): minimal Specimens/Packing Specimens Removed sigmoid and rectum MENDY DE LEON MD Nov 06, 2022 13:48
[2022-11-06 14:05] VITALS: BP 129/95
[2022-11-06 14:20] VITALS: BP 129/95
--- NOTE | 2022-11-06 14:49 | Anesthesia-General Post-Op ---
MAC Patient Condition Mental Status/LOC: Same as Preop Cardiovascular: Satisfactory Nausea/Vomiting: Absent Respiratory: Satisfactory Pain: Controlled Complications: Absent Post Op Complications Complications None Follow Up Care/Instructions Patient Instructions None needed. Anesthesiology Discharge Order Discharge Order Patient is doing well, no complaints, stable vital signs, no apparent adverse anesthesia problems. No complications reported per nursing. CHAR HERNANDEZ CRNA Nov 06, 2022 14:49
--- NOTE | 2022-11-06 21:07 | OPERATIVE REPORT ---
DATE OF SERVICE: 11/06/2022 ATTENDING PRIMARY CARE PHYSICIAN: Kadeem Wright MD PREOPERATIVE DIAGNOSES: Rectal bleeding with a history of proctitis. POSTOPERATIVE DIAGNOSES: Mild chronic stage II external and internal hemorrhoids. No perianal fistulas. Severe proctitis with the inflammation extending into the sigmoid colon. Mild right sided colitis. PROCEDURE: Colonoscopy with biopsy. SURGEON: Mendy De Leon MD ANESTHESIA: Monitored anesthesia care. ESTIMATED BLOOD LOSS: Minimal. FINDINGS: Mild chronic stage II external and internal hemorrhoids. No perianal fistulas. Severe proctitis with the inflammation extending into the sigmoid colon. Mild right sided colitis. DISPOSITION: The patient tolerated the procedure well. INDICATIONS: The patient is a 41-year-old male known to us. He has a longstanding history of gastroesophageal reflux disease and has tried different medications and dietary and lifestyle changes as well as a PPI acid reducers, however, did continue to have symptoms. This gentleman also does have a history of metastatic ocular melanoma and has been taking chemotherapy and has had a good response to therapy. He underwent a hiatal hernia repair as well as a posterior 180-degree Derik wrap in 2020 and he states that his reflux symptoms have improved. He then developed some issues with nausea and vomiting and he underwent a laparoscopic cholecystectomy as well as an open umbilical hernia repair on 08/08/2022 and he states that he has felt significantly better. He reports in the past month, he has been having bright red blood per rectum with every bowel movement. We had done a colonoscopy on him before in 2020 where he was found to have a mild proctitis. DESCRIPTION OF PROCEDURE: The patient was brought to the endoscopy suite and laid in the left lateral decubitus position. After adequate IV pain, sedative medications and monitored anesthesia care, a digital rectal examination was performed. Normal sphincter tone was felt and there were no palpable masses. There was mild chronic stage II external, internal hemorrhoids. Prostate gland was palpable and appeared normal. There was no perianal diseases. No redness, erythema, or any fistulous tracts to indicate any Crohn's disease. The endoscope was then intubated into the anus, rectum and gently insufflated where a severe proctitis was identified, which is the etiology of his rectal bleeding. Multiple biopsies were taken of the rectum with forceps with visualization of good hemostasis. There were also ulcerative plaques within the areas of inflammation, likely consistent more with an ulcerative colitis. This type of inflammation extended to a sigmoid colitis. Then, there was a significant lessening of the inflammation with mild inflammation of the transverse and ascending colon as well as the cecum. The endoscope was slowly withdrawn while taking a second look and suctioning of residual air where multiple biopsies were also taken to the sigmoid colon with visualization of good hemostasis. The patient tolerated the procedure well. We will await the biopsy results; however, his endoscopic findings as well as symptoms are likely consistent with an ulcerative colitis. We will start him on the first line therapy for chronic active ulcerative colitis, which would entail 5 amino salicylic acid 800 mg t.i.d. for the next 6 weeks. We will also refer him to Gastroenterology for further long-term management. Job ID: [id number] DocumentID: [id number] Dictated Date: 11/06/2022 13:41:48 Engine Dispatcher Date: 11/06/2022 21:06:00 Dictated By: MENDY DE LEON MD
== END 2022-11-06 14:20 | disposition home or self-care (01) ==
LOC: ENDO 10:59
PROVIDERS: ATTEND Surgery
DX: K52.9 Noninfective gastroenteritis and colitis, unspecified (principal); K64.4 Residual hemorrhoidal skin tags; K62.89 Other specified diseases of anus and rectum; K64.1 Second degree hemorrhoids; K62.6 Ulcer of anus and rectum; E66.9 Obesity, unspecified; Z68.37 Body mass index [BMI] 37.0-37.9, adult; Z87.891 Personal history of nicotine dependence; Z28.310 Unvaccinated for COVID-19
CPT/HCPCS: 88305

== ENCOUNTER 2023-09-08 19:59 | Emergency (ER) | payer OTHER ==
[~2023-09-08] VITALS: Ht 193 cm; Wt 141.3 kg
[~2023-09-08 19:59] MED LIST changes: +HYDR15SO11 PO; -HYDR15SO8 PO; +[UNRECOGNIZED DRUG - CODE] PO
[2023-09-08 20:17] VITALS: BP 148/107
--- NOTE | 2023-09-08 20:54 | ED EENT ---
History of Present Illness General Chief Complaint: Eye Problems Stated Complaint: LT EYE PAIN/REDNESS Nursing Triage Note: PT AMB TO FT WITH FAMILY WITH C/O L EYE PAIN STARTING AROUND 1530 THIS AFTERNOON. PT DENIES INJURY. PT HAS HX OF OCCULAR MELANOMA AND RETINAL DETACHMENT Source: patient, family () History of Present Illness Date Seen by Provider: Sep 08, 2023 Time Seen by Provider: 20:38 Initial Comments Patient is a 42-year-old male who presents to the emergency room with a chief complaint of increasing left eye pain. Onset about 330 this afternoon. He has had some sharp discomfort in the eye and behind the eye. Within the last 3 weeks has had retinal detachment with treatment by a retinal specialist in [place]. Complicated by history of ocular melanoma since the year 1999. He has had ongoing treatment followed by a specialty team in [facility]. He denies recent trauma but does state 2 or 3 days ago he felt some sort of a "pop" in his left eye with discomfort that resolved spontaneously. He says since that time he has had some discomfort in the Timing/Duration: abrupt Severity: moderate Location: eye (L) Prearrival Treatment: prescription meds (drops), other Allergies and Home Medications Allergies Coded Allergies: Penicillins (Verified Allergy, Unknown, 07/17/20) aspirin (Verified Allergy, Unknown, 07/17/20) blueberry (Verified Allergy, Unknown, 06/14/21) Patient Home Medication List Home Medication List Reviewed: Yes Mesalamine (5-Aminosalicylic Acid) 25 Gm Powder, 800 MG PO TID, (Reported) Entered as Reported by: JONATHAN YAN on 11/06/22 1343 Metoclopramide HCl (Reglan) 10 Mg Tablet, 10 MG PO ACHS, (Reported) Entered as Reported by: CHIDI WALL on 08/07/22 1133 Pantoprazole Sodium (Pantoprazole Sodium) 40 Mg Tablet.dr, 40 MG PO DAILY, (Reported) Entered as Reported by: YORDAN BELLA on 07/19/21 1125 Sucralfate (Sucralfate) 1 Gram Tablet, 1 GM PO TID, (Reported) Entered as Reported by: SMITA CASTILLO on 10/30/22 0901 Past Whybapd-Dwgmhh-Lrckxh Hx Patient Social History Tobacco Use?: No Use of E-Cig and/or Vaping dev: No Substance use?: No Alcohol Use?: No Pt feels they are or have been: No Immunizations Up To Date Influenza Vaccine Up-to-Date: No; Not Current First/Initial COVID19 Vaccinat: 12/15/2020 Second COVID19 Vaccination Donovan: 12/15/2020 Third COVID19 Vaccination Date: 12/15/2020 Seasonal Allergies Seasonal Allergies: Yes Past Medical History Surgery/Hospitalization HX: RECENT LAP IRVIN FUNDOPLICATION 06/14/21OCULAR MELANOMA - TX W CHEMO AND RADIATION, RETINAL DETACHMENT, TRUONG Surgeries: Yes (CARDIAC CATH-NO INTERVENTION;LEFT EYE LASER Sx + AVASTIN INJ, hiatal hernia) Abdominal, Cardiac, Eye Surgery, Gallbladder Respiratory: No Currently Using CPAP: No Currently Using BIPAP: No Cardiac: Yes (CARDIAC CATH-NO INTERVENTION; QUIT TAKING COREG FOR HTN > 10 YEARS AGO. 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 0.0oz. 126.432811qi; 37.00 BMI Method:Stated Procedures/Interventions Eye : Location: left eye Eye Irrigated w/ Saline (ccs): 20 Anesthesia (gtts): Tetracaine Intraocular Pressure: Per Tonopen (25/25/25), (R) eye (mm) Progress/Procedure Conclusion slit lamp exam, copious punctate uptake over the cornea; chemosis; irregular pupil, unreactive; significant inflammation sclerae Progress/Results/Core Measures Results/Orders My Orders Orders - ZARINA BARRIENTOS MD Tetracaine 0.5% Ophth Soln (Tetravisc 0. (09/08/23 21:15) Fluorescein Ophthalmic Strips (Fluoresce (09/08/23 21:15) Balanced Salt Irrigation Soln (Bss Irrig (09/08/23 21:15) Tetracaine 0.5% Ophth Mica Sdv (Tetracai (09/08/23 21:11) Prednisolone 1% Ophth Susp (Prednisolone (09/08/23 21:40) Rx-Hydrocodone/Apap 5-325 Mg (Rx-Vicodin (09/08/23 21:45) Rx-Prednisolone Acetate (Rx-Pred Forte 1 (09/08/23 21:44) Rx-Hydrocodone/Apap 5-325 Mg (Rx-Vicodin (09/08/23 21:42) Medications Given in ED Current Medications Medications Dose Ordered Sig/Sammi Route Start Time Stop Time Status Last Admin Dose Admin Balanced Salt Solution 15 ml ONCE ONCE IR 09/08/23 21:15 09/08/23 21:16 DC 09/08/23 21:16 15 ML Fluorescein Sodium 1 mg ONCE ONCE OU 09/08/23 21:15 09/08/23 21:16 DC 09/08/23 21:16 1 MG Tetracaine HCl 4 ml STK-MED ONCE .ROUTE 09/08/23 21:11 09/08/23 21:15 DC 09/08/23 21:16 4 ML Vital Signs/I&O 09/08/23 20:17 Temp 36.3 Pulse 93 Resp 17 B/P (MAP) 148/107 (121) Pulse Ox 96 O2 Delivery Room Air Blood Pressure Mean: 121 Departure Communication (Admissions) Time/Spoke to Consulting Phy: 20:[address] Owens (utilization specialist) Impression Primary Impression: Acute panophthalmitis of left eye Disposition: 01 HOME, SELF-CARE Condition: Stable Departure-Patient Inst. Decision time for Depature: 21:42 Referrals: CHRISTIANO FRENCH OD, DANIEL J MD (PCP/Family) Primary Care Physician Add. Discharge Instructions: Use the prednisolone eyedrop again in an hour to an hour and a half, 1 drop to that left eye. We did not have the antibiotics that you needed here in the hospital this evening. Please let the office know that in the morning when you are seen. Call the [place] [facility] office first thing at 830am, they will be expecting your phone call to schedule a time to be seen tomorrow. I have given you a "take-home pack" of pain medicine. Hydrocodone, you can take 1 with an extra strength Tylenol every 6 hours as needed for pain. If you have any new, concerning or worsening complaints throughout the night please return to the emergency room for reevaluation. Copy Copies To 1: CHRISTIANO FRENCH OD, KATHRYN M MD Sep 08, 2023 20:54
[2023-09-08] MEDS ORDERED: TETRACAINE 0.5% OPHTH SOLN 4 ML BTL (SINGLE DOSE ONLY) ONE (21:11)
[2023-09-08] MEDS ORDERED: BSS 15 ML IR ONE (21:15)
[2023-09-08] MEDS ORDERED: FLUORESCEIN 1 MG OPHTHALMIC STRIPS OU ONE (21:15)
[2023-09-08] MEDS ORDERED: TETRACAINE 0.5% OPHTH SOLN 5 ML BTL OU ONE (21:15)
[2023-09-08] MEDS ORDERED: prednisoLONE 1% Ophthalmic Suspension 5 ML BTL ONE (21:40)
[2023-09-08] MEDS ORDERED: OPTH OP STA (21:44)
[2023-09-08] MEDS ORDERED: PREDNISOLONE 1% OP STA (21:44)
== END 2023-09-08 21:54 | disposition home or self-care (01) ==
LOC: EDUNIT# 19:59 → ER 20:02
DX: H44 Disorders of globe (principal)
CPT/HCPCS: 99283